=== PATIENT | female | born 1945 | race Caucasian/White ===

== ENCOUNTER 2020-08-22 11:57 | Observation (INO) ==
[2020-08-22] MEDS ORDERED: BACITRACIN INJ 50,000 UNIT VIAL ONE (12:13)
[2020-08-22] MEDS ORDERED: LIDOCAINE HCL 1% 20 ML VIAL ONE (12:13)
[2020-08-22] MEDS ORDERED: BUPIVACAINE 0.25% 30 ML VIAL ONE (12:13)
[2020-08-22] MEDS ORDERED: CLINDAMYCIN PHOS 300 MG/2 ML VIAL ONE (12:21)
[2020-08-22] MEDS ORDERED: MIDAZOLAM HCL 5 MG/ML 1 ML VIAL ONE ×2 (12:26→13:51)
[2020-08-22] MEDS ORDERED: fentaNYL citrate 100 MCG/2 ML VIAL ONE ×2 (12:26→13:51)
--- NOTE | 2020-08-22 13:02 | History & Physical Bridge Note ---
Date of Service August 22, 2020 History & Physical Bridge Note I have examined the patient, reviewed the History & Physical and in the interval since the performance of the History & Physical I have noted the following changes of clinical significance: no changes noted
--- NOTE | 2020-08-22 13:02 | Pre Anesthesia Assessment ---
Date of Service August 22, 2020 Pre Sedation Assessment Vital Signs Temp Pulse Resp BP Pulse Ox 08/22/20 12:05 37 C 73 18 178/98 H 95 Cardiovascular + regular rhythm Respiratory normal respiratory effort, lungs clear to auscultation Pre-Sedation Airway Assessment Smoking Status: Never smoker Hx Sleep Apnea: No Short, Thick Neck: No Thyromental Distance: > or= 3.5 Finger Breadths Oral Cavity: + Dentures Mallampati Class: II ASA: ASA3 NPO Status Date of Last Intake of Fluids: 08/22/20 Time of Last Intake of Fluids: 06:00 Date of Last Intake of Solid Food: 08/22/20 Time of Last Intake of Solid Foods: 06:00 Procedure Planning Contraindications for Sedation: none Current Medications Reviewed: Yes Notes The planned sedation has been discussed with the patient. Informed Consent was obtained. I have identified the patient, determined the appropriateness of sedation and have assessed the patient immediately prior to the procedure. All medicine(s) and interventions are by my order.
--- NOTE | 2020-08-22 14:46 | Post Anesthesia Assessment ---
Date of Service August 22, 2020 Post Sedation Assessment Vital Signs Temp Pulse Resp BP Pulse Ox 08/22/20 12:05 37 C 73 18 178/98 H 95 Recovery Score Activity: Moves 4 extremities Respiration: Deep Breath/Cough Circulation: +/-20% PreAnes Value Consciousness: Fully Awake Oxygen Saturation: > 92% On Room Air Discharge Sedation Level of Care: Fast Track Phase II Post Sedation Plan On clinical assessment, the patient appears to have tolerated the sedation without complications. Patient is recovering as anticipated. Patient will continue to be monitored by nursing and may be discharged when sedation discharge criteria are met per below protocol. Upon Completions of procedure up to 15 minutes continue every 5 minute vital signs and the P.A.R. score; then discharge to a Phase I or Fast Track to Phase II per the following guidelines: * Discharge Patient to appropriate Phase II area if PAR is 8 or greater or return to pre- procedure baseline. The post - procedure orders will be as directed. * If PAR score is less than 8 or not return to pre-procedure baseline then patient will follow Phase I monitoring till PAR is reached for Phase II. The Phase I may be done in procedure room or may call to secure a Phase I area. * If naloxone or flumazenil are used for reversal, hold in Phase I for continued monitoring from when last reversal dose was given for a minimum of 60 minutes or longer pending the nurse and/or physician discretion of patient condition before discharge to Phase II. Please call the Sedation Physician to re-evaluate and complete post-note for discharge to Phase II area. Do NOT discharge from procedure sedation or Phase 1 until post- sedation evaluation note is complete by procedure /sedation MD Sedation Discharge Instructions to be given to the patient at discharge to home.
[2020-08-22] MEDS ORDERED: ACETAMINOPHEN 325 MG TAB PO PRN (14:47)
[2020-08-22] MEDS ORDERED: oxyCODONE/ACETAMINOPHEN 5mg/325mg TAB PO PRN (14:47)
--- NOTE | 2020-08-22 14:47 | Operative Report ---
Post Operative Report Pre & Post Diagnosis NICM and SB Operation Date: 08/22/20 13:00 <No data on this case meets the specified criteria> I identified the patient and participated in the time-out.: Yes Procedure Operation Date: 08/22/20 13:00 Actual Procedures p ICD Insertion Single or Dual - Ailyn Weiss DO Surgeon Ailyn Weiss, DO Sales Designer none Estimated Blood Loss 25 Findings Consistent with Post-Op Diagnosis Specimens none Description of Procedure see official report I attest to the content of the Intraoperative Record and any orders documented therein. Any exceptions are noted below.
--- NOTE | 2020-08-22 14:55 | Discharge Summary ---
Date of Service August 23, 2020 Admission HPI Per Admitting Provider Pt admitted for ICD due to NICM Admission Exam Per Admitting Provider aaox3, NAD NC/AT, EOMI Supple No JVD Nrl S1/S2, No murmur CTA b/l no w/r/r soft nt/nd no LE edema b/l skin intact no focal deficits Principal Diagnosis NICM s/p ICD Discharge Exam aaox3, NAD NC/AT, EOMI Supple No JVD Nrl S1/S2, No murmur CTA b/l no w/r/r soft nt/nd no LE edema b/l skin intact no focal deficits left pectoral incision intact, no hematoma mild ecchymosis Discharge Data Allergies Allergy/AdvReac Type Severity Reaction Status Date / Time Penicillins Allergy Mild pain Verified 08/22/20 12:27 Procedures Performed Operation Date: 08/22/20 13:00 Actual Procedures p ICD Insertion Single or Dual - Ailyn Weiss, Ordered Studies CXR: No PTX ECG: SR ICD Interrogation: normal function 08/22/20 07:14 CL Cath Imgs for PACS use only Stat Hospital Course (1) NICM (nonischemic cardiomyopathy): Pt admitted for elective ICD due to NICM. Pt underwent procedure without any complications and monitored overnight and discharged home. (2) Sinus bradycardia: Total Time Total Time Spent Total Time Spent (In Minutes): 40 Total Time Includes: Examination of the Patient, Discharge Planning, Medication Reconciliation and Other Discharge Plan Discharge Items Patient Disposition: Home - Self-Care Reason For Visit: NICM Discharge Diagnosis: NICM s/p ICD Condition on Discharge: Good Activity: As commented below Activity Comment: do not raise the left elbow over the left shoulder for 1 month wear sling for at least 3 days Lifting: No more than 10 pounds Lifting Comment: do not lift more than 10 pounds with the left arm for 2 weeks Bathing: Keep incision dry Bathing Comment: keep dresssing on and dry until wound check next week Sexual Activity: After two weeks Non-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: 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 Call non-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 if: you have any medication questions, your wound has increased redness and your wound has increased drainage Follow-up/Referrals: Albert Ng PA-C [Primary Care Provider] - Diet: Heart Healthy Add Attending Provider Instructions: Device and wound check next week at [facility] Try to wear a sports bra or surgical bra for the next few weeks to assist with wound healing Pending Studies at Discharge: No Stand-Alone Forms: My [facility] Medications and DC Order Prescriptions: Continued atorvastatin 20 mg Tablet 20 mg PO HS RF: 0 cyanocobalamin (vitamin B-12) [Vitamin B-12] 1,000 mcg Tablet 1,000 mcg PO QAM RF: 0 aspirin 81 mg Tablet,Delayed Release (Dr/Ec) 81 mg PO QAM RF: 0 spironolactone 25 mg Tablet 12.5 mg PO 3XWK RF: 0 ferrous sulfate 325 mg (65 mg iron) Tablet 325 mg PO HS RF: 0 calcium polycarbophil [Fiber (calcium polycarbophil)] 625 mg Tablet 1,250 mg PO QDD RF: 0 furosemide 20 mg Tablet 20 mg PO QAM RF: 0 metoprolol succinate 25 mg Tablet Extended Release 24 Hr 25 mg PO HS RF: 0 lisinopril 40 mg Tablet 40 mg PO HS RF: 0 multivitamin Capsule 1 cap PO QAM RF: 0 cholecalciferol (vitamin D3) [Vitamin D3] 25 mcg (1,000 unit) Capsule 75 mcg PO QAM RF: 0 fiber Powder 3.4 g PO QAM RF: 0 omeprazole 20 mg Tablet,Delayed Release (Dr/Ec) 20 mg PO QAM RF: 0 levothyroxine 50 mcg Capsule 50 mcg PO QAM RF: 0 nonre-[id number]-0-tao-imn-omisiv [krill oil] 044-71-52-50 mg Capsule 1 cap PO HS RF: 0 Prolia 60 mg/mL Syringe 60 mg SUBCUT DIRECTED RF: 0 amlodipine 2.5 mg tablet 2.5 mg PO DAILY Qty: 30 RF: 6 Discharge Orders: Discharge Order (Routine); Ordered 08/23/20 Ordered By: Christopher Walton Admission Data Admit Date/Time: 08/22/20 15:02 Attending Provider: Ailyn Weiss Admit Provider: Ailyn Weiss Primary Care Provider: Albert Ng Other Interventions: Discharge Summary Assessment (RN) Last Done: 08/23/20 10:25
[2020-08-22] MEDS ORDERED: CALCIUM POLYCARBOPHIL 625MG TAB PO SCH (18:00)
[2020-08-22] MEDS ORDERED: SPIRONOLACTONE 12.5 MG TAB PO SCH (18:00)
[2020-08-22] MEDS ORDERED: ondansetron HCL 6 MG in DEXTROSE 5% 50 ML IV PRN ×3 (18:38→18:46)
[2020-08-22] MEDS ORDERED: Nursing to Pharmacy Communication SCH (18:45)
[2020-08-22] MEDS ORDERED: OMEGA-3 (PURIFIED FISH OIL) 1 GM CAP PO SCH (21:00)
[2020-08-22] MEDS ORDERED: METOPROLOL SUCC 25MG EXT REL TAB PO SCH (21:00)
[2020-08-22] MEDS ORDERED: FERROUS SULFATE 325 MG TAB PO SCH (21:00)
[2020-08-22] MEDS ORDERED: ATORVASTATIN 20 MG TAB PO SCH (21:00)
[2020-08-22] MEDS ORDERED: lisinopril 40 MG TAB PO SCH (21:00)
[2020-08-22 23:10] VITALS: TEMP 98.1
[2020-08-23] MEDS ORDERED: LEVOTHYROXINE SODIUM 50 MCG TABLET PO SCH (06:30)
[2020-08-23 07:10] VITALS: BP 153/76; O2SAT 95
--- NOTE | 2020-08-23 08:53 | XRay Report ---
XR chest 2V PA/lateral CLINICAL HISTORY: post iCD COMPARISON STUDY: Chest radiograph October 01, 2016. FINDINGS: There is no pneumothorax following placement of a dual-lead left subclavian pacer/AICD. Hannah d tips project over the right atrial appendage and right ventricle. There is moderate cardiomegaly. T here is no evidence for pulmonary edema. A trace left pleural effusion is noted. Large hiatal hernia is noted. Cholecystectomy clips are present. IMPRESSION: 1. No pneumothorax following placement of a dual lead left subclavian pacer/AICD. 2. Trace left pleural effusion. 3. Large hiatal hernia. 4. Cardiomegaly. No evidence for pulmonary edema. ACT 112: Negative or not required by law. Electronically signed by: Victorino De Jesus M.D. 08/23/2020 8:52 AM
[2020-08-23] MEDS ORDERED: CYANOCOBALAMIN 500 MCG TABLET (VITAMIN B-12) PO SCH (09:00)
[2020-08-23] MEDS ORDERED: PANTOprazole 40 MG TAB PO SCH (09:00)
[2020-08-23] MEDS ORDERED: ASPIRIN 81 MG ECTAB PO SCH (09:00)
[2020-08-23] MEDS ORDERED: CHOLECALCIFEROL 1,000 UNITS 25 MCG TAB PO SCH (09:00)
[2020-08-23] MEDS ORDERED: PSYLLIUM 58.6% POWDER PACKET PO SCH (09:00)
[2020-08-23] MEDS ORDERED: CEROVITE ADV FORMULA TAB PO SCH (09:00)
[2020-08-23] MEDS ORDERED: FUROSEMIDE 20 MG TAB PO SCH (09:00)
--- NOTE | 2020-08-23 10:08 | Cardiology Progress Note ---
Date of Service August 23, 2020 Assessment & Plan (1) NICM (nonischemic cardiomyopathy): Pt admitted for elective ICD due to NICM. Pt underwent procedure without any complications and monitored overnight and discharged home. (2) Sinus bradycardia: Admission and Anticipated Discharge Date Admission Date: August 22, 2020 Subjective Patient seen and examined, chart, medications, telemetry reviewed. No acute cardiac complaints. Pacer defibrillator site healing well without hematoma. Device functioning normal Physical Exam Constitutional: WD/WN, vitals as above Eyes: PERRL, conjunctivae normal, anicteric sclerae ENMT: external ear and nose normal, oropharynx normal Neck: trachea midline, no thyromegaly Respiratory: normal respiratory effort, lungs clear to auscultation Cardiovascular: Rate/Rhythm: regular rate and regular rhythm Heart Sounds: normal S1 and normal S2; no gallop and no murmur Palpation: normal PMI Vessels: normal carotid upstroke and radial pulses present; no JVD and no carotid bruit Extremities: no edema Chest (Breasts): Chest: + pacemaker (No hematoma or or erythema) Gastrointestinal (Abdomen): normal bowel sounds, soft, nontender, no hepatosplenomegaly Musculoskeletal: no cyanosis or clubbing, extremities motor strength 5/5 Skin: no rashes, warm and dry Neurologic: PERRL, EOMI, accommodation nl, no face palsy, no dysarthria Psychiatric: A+Ox3, euthymic affect Results & Data ([facility]) Vital Signs (Past 12 Hours) Vital Signs Temp Pulse Pulse Resp BP Pulse Ox 08/23/20 07:09 36.7 C 66 18 153/76 H 95 08/23/20 03:35 36.7 C 80 18 130/76 91 08/23/20 02:42 68 08/22/20 23:09 36.7 C 70 18 135/80 91 Diagnostic Findings Chest x-ray 08/23/2020: IMPRESSION: 1. No pneumothorax following placement of a dual lead left subclavian pacer/AICD. 2. Trace left pleural effusion. 3. Large hiatal hernia. 4. Cardiomegaly. No evidence for pulmonary edema.
[2020-08-23 10:27] VITALS: PULSE 60
--- NOTE | 2020-08-29 15:35 | Operative Report (OR) ---
DATE OF OPERATION: 08/22/2020 PREOPERATIVE DIAGNOSES: Nonischemic cardiomyopathy and sinus bradycardia. POSTOPERATIVE DIAGNOSES: Same. PROCEDURE: Dual chamber rate responsive implantable cardiac defibrillator under fluoroscopic guidance along with peripheral venogram. SURGEON: Ailyn Weiss DO. ASSISTANTS: None. ANESTHESIA: Monitored conscious sedation administered under my supervision by Evelyn Sanchez. Start time 1315, end time 1541. Total of 7 mg of Versed, 175 mcg of fentanyl. INTRAVENOUS FLUIDS: 250 mL ANTIBIOTICS: 600 mg of clindamycin. CONTRAST: 40 mL ADDITIONAL MEDICATIONS 300 mcg of nitroglycerin IV COMPLICATIONS: None. CONDITION: Stable. URINE OUTPUT: Not applicable. SPECIMENS: None. FINDINGS: See below. DRAINS: None. BLOOD LOSS: 20 mL INDICATIONS: This is a 74-year-old female with past medical history for nonischemic cardiomyopathy, ejection fraction 30% in December of 2019. It remained low on repeat echo in 04/2020, coronary artery disease, nonobstructive disease by catheterization in May of 2020, hypertension, chronic heart failure with reduced ejection fraction, [place] Heart Association class 3, hyperlipidemia, hypothyroidism, osteoporosis, hiatal hernia, where she is needing surgery soon. Due to her nonischemic cardiomyopathy and sinus bradycardia, she was recommended dual chamber ICD. CONSENT: Consent was obtained prior to the patient going into electrophysiology lab. The patient was informed of the risks, benefits and alternative procedure. Risks include but not limited to sudden cardiac , cardiac arrhythmias, cerebrovascular accident, myocardial infarction, injury to the blood vessels, chamber of the heart, lung, bleeding, and infection. The patient understood these risks and agreed with procedure as planned. Informed consent was obtained. DESCRIPTION OF THE PROCEDURE: The patient was brought into the electrophysiology lab in fasting state. She was connected to continuous cardiac monitoring. A timeout was performed to ensure patient identity and procedure correctly. The patient was prepped and draped over the left inferior space in normal surgical standard fashion. Monitored conscious sedation was given throughout the procedure for patient's comfort level. [place] precautions were maintained throughout the procedure. 10 mL of 1% lidocaine, bupivacaine mixture were given in the left deltopectoral groove. Incision was made in left deltopectoral groove. Blunt dissection performed down to identify cephalic vein; however, none could be identified, so peripheral venogram was performed to identify the axillary vein. However, I was having difficulty getting axillary access, so then I did another venogram and then discovered that the vein had spasmed, so we gave nitroglycerin. I actually had to give IV nitroglycerin twice. Then I was able to get access, it was probably more subclavian at this point. It was pretty proximal to the spasm. A guidewire was inserted without any resistance. An 8-Haitian sheath was inserted over the guidewire without any resistance. Dilator was removed and a second guidewire was inserted through the sheath to allow for retained venous access. Sheath was removed and a 9.5-H[place]ian SafeSheath was advanced over one of the guidewires without any resistance. Guidewire and dilator removed. Right ventricular defibrillator lead was then advanced into right ventricle positioned in intraventricular apex under fluoroscopic guidance. There was adequate pacing and sensing thresholds and no diaphragmatic stimulation in high output pacing. The 9.5-[place]aitian sheath was peeled away and lead was fixated to pectoralis muscle using 0 silk suture. An 8 [place] SafeSheath was then advanced over the retained guidewire without any resistance. Guidewire and dilator removed. The right atrial lead was then advanced into right atrium and positioned interatrial appendage under fluoroscopic guidance. There was adequate pacing and sensing thresholds and no diaphragmatic stimulation with high output pacing. The 8-Haitian sheath was peeled away and lead was fixated to pectoralis muscle using 0 silk suture. A defibrillator pocket was then created using blunt dissection over the pectoralis muscle within the pectoralis fascia. The pocket was flushed with copious amounts of bacitracin saline wash and inspected for hemostasis. The defibrillator was then attached to leads making sure the pins were in appropriate position, passed set screw and set screws were all tightened. Defibrillator was then placed in antibiotic pouch followed then by being placed in the pocket, making sure the leads were lying flat beneath the device. The incision was then closed in 3-layer fashion with 2-0 Vicryl interrupted suture, followed 3-0 Vicryl interrupted suture, followed by 4-0 Monocryl running stitch and Dermabond was applied followed by a Telfa and micropore dressing. EQUIPMENT: 1. Pulse generator is a [employer] Data[employer] MRI XTDR SureScan [id number], serial number [id number]. 2. The Tyrx pouch reference [id number], lot number [id number], expiration 04/26/2021. 3. Right atrial lead Medtronic 5076-52 cm, serial #[id number]. 4. Right ventricular lead, Medtronic 6935M-62 cm, serial [id number]. INTRAOPERATIVE TESTIN. Right atrial lead: P-wave 3 millivolts, impedance 1033 ohms, threshold 0.9 volts at 0.4 milliseconds. 2. Right ventricular lead R-wave 14.4 millivolts, impedance 617 ohms, threshold 0.4 volts at 0.4 milliseconds. FINAL MEASUREMENTS THROUGH THE DEVICE: 1. Right atrial lead: P waves 2.4 millivolts, impedance 836 ohms, threshold 0.75 volts at 0.4 milliseconds. 2. Right ventricular lead: R waves 18.4 millivolts, impedance 532 ohms, threshold 0.5 volts at 0.4 milliseconds. 3. RV coil 69 ohms. FINAL PARAMETERS: MVP-R 60/130, right atrial and right ventricular amplitude 3.5 volts, pulse width 0.4 milliseconds, sensitivity 0.3 millivolts. VT monitor zone at 140 beats per minute for 32 detection intervals, VT zone at 167 beats per minute for 16 detection intervals, VF zone at 200 beats per minute for 30/40 detection intervals. IMPRESSION: Successful implantation of a dual chamber rate responsive implantable cardiac defibrillator secondary to nonischemic cardiomyopathy and sinus bradycardia. PLAN: Monitor patient overnight, 12-lead ECG, chest x-ray. She cannot lift the left elbow or left shoulder for 1 month. She cannot lift more than 10 pounds with the left arm for 2 weeks. She is to keep the dressing on and dry until her wound check next week. I attest to the content of the Intraoperative Record and any orders documented therein. Any exception s are noted below.
== END 2020-08-23 12:09 | disposition home or self-care (01) ==
LOC: EP 11:57 → 2S 11:57
PROC: EPB.ICD (2020-08-22 13:00)
DX: I50.22 Chronic systolic (congestive) heart failure; I25.10 Atherosclerotic heart disease of native coronary artery without angina pectoris; Z79.890 Hormone replacement therapy; E03.9 Hypothyroidism, unspecified; Z82.49 Family history of ischemic heart disease and other diseases of the circulatory system; Z79.899 Other long term (current) drug therapy; I42.8 Other cardiomyopathies; I11.0 Hypertensive heart disease with heart failure; E78.5 Hyperlipidemia, unspecified; R00.1 Bradycardia, unspecified

== ENCOUNTER 2023-06-14 11:15 | Inpatient (IN) ==
[2023-06-14 12:18] LABS: Basophils # (auto) 0.02 K/uL (0-0.2); Basophils % (auto) 0.2 %; Hematocrit (blood only) 48.9 % (37.0-47.0); Hemoglobin 17.1 g/dl (12.0-16.0); Immature Granulocytes # (auto) 0.03 K/uL (0.01-0.20); Immature Granulocytes % (auto) 0.3 %; Lymphocytes # (auto) 0.75 K/uL (1.2-3.4); Lymphocytes % (auto) 7.1 %; Mean Corpuscular Hemoglobin 32.3 pg (25.0-34.0); Mean Corpuscular Volume 92.4 fL (80.0-100.0); Mean Platelet Volume 10.2 fL (9.4-12.4); Monocytes # (auto) 1.17 K/uL (0.11-0.59); Monocytes % (auto) 11.1 %; Neutrophils # (auto) 8.61 K/uL (1.40-6.50); Neutrophils % (auto) 81.3 %; Platelet Count 246 K/uL (130-400); RDW Coefficient of Variation 12.2 % (11.5-14.5); RDW Standard Deviation 41.9 fL (36.4-46.3); Red Blood Count 5.29 M/uL (4.20-5.40); White Blood Count 10.58 K/ul (4.8-10.8)
[2023-06-14 12:38] LABS: Albumin Globulin Ratio 1.5 (0.9-2); Albumin Level 4.6 gm/dl (3.4-5.0); BUN Creatinine Ratio 36.2 (10-20); Bilirubin,Total 1.2 mg/dl (0.2-1.0); Calcium 11.5 mg/dl (8.6-10.3); Creatinine Clr Calc Pharmacy 29.3 ml/min; Est GFR (African American) 37.9 ml/min; Est GFR (Non-African American) 32.7 ml/min; Potassium 4.2 mmol/L (3.5-5.1); Total Protein 7.6 gm/dl (6.0-8.3)
--- NOTE | 2023-06-14 14:21 | Emergency Department Note ---
Impression & Plan SBO (small bowel obstruction), Abdominal pain, Hypercalcemia, Acute dehydration, Nausea & vomiting ED Provider Note NAME: CHANDAN HERRMANN AGE: 77 SEX: F : 1945 ARRIVES VIA: Walk-In INFORMANT: Patient, ED PROVIDER(S): Patricio Mcfadden MD CHIEF COMPLAINT: Abdominal pain, outpatient abnormal CT Patient presents due to concern for abdominal pain in setting of outpatient CT which showed small bowel obstruction. IV was established and blood work was obtained. The patient was ordered IV fluids as well as IV Zofran. The patient has had 2 bowel movement since she arrived. The patient has a normal white count mild elevation hemoglobin which may be consistent with the patient's inability to tolerate by mouth. Platelet count is unremarkable. Creatinine 1.5 with associated hyponatremia 131. Patient does have hypercalcemia which again may be secondary to volume depletion and hemoconcentration. I did speak on-call general surgery Katherin Espitia PA-C the patient will be admitted to the medical service for further evaluation and treatment. Patient feeling member comfortable with plan of care. Patient was admitted by Dr. Dawson. General surgery did not recommend NG tube at this time. The patient has had no vomiting while here in the department Prior /Outside records reviewed: I did review the patient's outpatient CT report which showed the patient does have a moderate to high-grade small bowel obstruction. The patient does have a known hiatal hernia. Differential diagnosis: Pancreatitis, bowel obstruction, gastroenteritis, biliary colic, renal colic, pneumoperitoneum, diverticulitis among others were considered. Diagnostics, as interpreted by me: ECG: Normal sinus rhythm, rate 95, normal intervals, left axis deviation, T wave versions in the high lateral leads. No obvious ST elevations Cardiac monitoring: An order was placed for continuous cardiac monitoring. The monitor shows a rate of 88 with sinus rhythm. Patient was placed on pulse oximetry Medical decision rules: None Imaging studies: See below I informally reviewed the patient's KUB which does show likely bowel obs truction. HPI: Patient presents due to concern for inability to have a bowel movement as well as an abnormal outpatient CT scan. Patient states that she has not had a bowel movement since Tuesday. The patient has had associated nausea and vomiting. No vomiting today. The patient reports that she has been able have a bowel movement since she presented here in the department. Patient denies any falls or trauma. No blood in the urine or stool and the patient denies any blood in the vomit. Patient denies any prior history of bowel obstruction but the patient does have a prior history of abdominal surgeries. PAST MEDICAL HISTORY: See Below PAST SURGICAL HISTORY: See Below SOCIAL HISTORY: See Below HOME MEDICATIONS: See Below ALLERGIES: See Below VITALS: See Below PHYSICAL EXAMINATION: GENERAL: NAD, non-toxic. Wearing glasses EYE EXAM: Normal conjunctiva. PERRL, no anisocoria and EOM's grossly intact w/o pain. OROPHARYNX: Moist mucus membranes, grossly normal dentition. NECK: Supple, no nuchal rigidity, no adenopathy, non-tender. No signs of meningismus. FROM of the neck with good chin to chest and neck extension. No stridor. LUNGS: Clear to auscultation. Normal chest wall mechanics. HEART: NSR, no MRG. ABDOMEN: Abdomen soft, upper abdominal discomfort without lower abdominal pain, not peritonitic, no masses, no rebound or guarding. BACK: No CVA TTP. SKIN: No rashes and no bruising. UPPER EXTREMITIES: Upper extremities are grossly normal. LOWER EXTREMITIES: Grossly normal, no edema. NEURO EXAM: A&O x3, cranial nerves II-XII grossly intact, normal speech, moves all 4 extremities. Past Med/Surg History Medical History Anemia takes iron Arthritis CAD (coronary artery disease) Diverticulosis GERD (gastroesophageal reflux disease) Hiatal hernia History of left inguinal hernia Hyperlipidemia Hypertension Hypothyroidism Incarcerated inguinal hernia, unilateral Mood disorder NICM (nonischemic cardiomyopathy) Presence of combination internal cardiac defibrillator (ICD) and pacemaker Sinus bradycardia Small bowel obstruction due to adhesions Surgical History H/O: hysterectomy History of carpal tunnel release right and left History of cholecystectomy History of foot surgery right and left joint replacement History of left knee replacement Hx of cholecystectomy Family History Other Diabetes Heart disease Social History Smoking Status: Never smoker Second Hand Exposure: No; Do You Dip or Chew Tobacco: No; Hx Alcohol Use: Yes Alcohol type: wine Hx Substance Use: No Preferred Language: Citizen Of [place] Communication Ability: Effective 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: No Beliefs That Will Affect Care: None Current Living Situation: Spouse 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 Other Information That Helps Us Care for You: No Feels Safe at Home: Yes Safety Concerns: Feels Safe At This Time Assistive Devices: Denture - Upper, Denture - Lower and Glasses Allergies Allergies Allergy/AdvReac Type Severity Reaction Status Date / Time Penicillins Allergy Mild pain Verified 08/22/20 12:27 Home Meds Home Medications Medication Instructions Recorded Confirmed aspirin 81 mg tablet,delayed 81 mg PO QAM 05/19/20 06/14/23 release calcium polycarbophil 625 mg 1,250 mg PO QDD 05/19/20 06/14/23 tablet (Fiber (calcium polycarbophil)) cholecalciferol (vitamin D3) 25 75 mcg PO QAM 05/19/20 06/14/23 mcg (1,000 unit) capsule (Vitamin D3) cyanocobalamin (vitamin B-12) 1,000 mcg PO QAM 05/19/20 06/14/23 1,000 mcg tablet (Vitamin B-12) krill 1 cap PO HS 05/19/20 06/14/23 [id number] 300 mg-90 mg-24 mg-50 mg capsule (krill oil) levothyroxine 50 mcg capsule 50 mcg PO QAM 05/19/20 06/14/23 lisinopril 40 mg tablet 40 mg PO 05/19/20 06/14/23 metoprolol succinate 25 mg 25 mg PO BID 05/19/20 06/14/23 tablet,extended release 24 hr multivitamin 1 cap PO QAM 05/19/20 06/14/23 omeprazole 20 mg tablet,delayed 20 mg PO QAM 05/19/20 06/14/23 release spironolactone 25 mg tablet 12.5 mg PO MOWEFR@0900 05/19/20 06/14/23 denosumab 60 mg/mL subcutaneous 60 mg subcut DIRECTED 06/18/20 06/14/23 syringe (Prolia) citalopram 10 mg tablet 10 mg PO QAM 06/14/23 06/14/23 ferrous fumarate-vitamin C 200 mg 1 tab PO HS 06/14/23 06/14/23 (66 mg iron)-125 mg tablet rosuvastatin 10 mg tablet 10 mg PO QAM 06/14/23 06/14/23 solifenacin 10 mg tablet 10 mg PO DAILY 06/14/23 06/14/23 Previous Rx's Medication Instructions Recorded amlodipine 2.5 mg tablet 2.5 mg PO DAILY #30 tabs 06/18/20 Results & Data (ED) Vital Signs Vital Signs - 24 hr 06/14/23 11:38 06/14/23 14:56 06/14/23 15:11 Temperature 36.8 C Temperature Source Temporal Artery Scan Pulse Rate 98 H 69 Pulse Rate [Apical] 66 Pulse Rhythm [Apical] Regular Pulse Strength [Apical] Normal Respiratory Rate 16 20 Respiratory Effort / Characteristics Non-Labored Non-Labored Spontaneous Respiratory Depth Normal Normal Blood Pressure 97/65 L Blood Pressure [Left Arm] 122/69 Blood Pressure Mean 75 Blood Pressure Mean [Left Arm] 86 Blood Pressure Position [Left Arm] Sitting Pulse Oximetry 93 86 L Oxygen Delivery Method Room Air Room Air Oxygen Flow Rate 1 Sepsis Recent Fever Within 48 Hours No Sepsis New/Unexplained Change in Mental Status No Sepsis Action Taken by Nursing No Action Required Home Medications Current Medication List: was personally reviewed by me Laboratory Data Attestation: I reviewed the patient's lab results. 06/14/23 12:00 06/14/23 12:00 Lab Results 06/14/23 06/14/23 Range/Units 12:00 12:00 WBC 10.58 (4.8-10.8) K/ul RBC 5.29 (4.20-5.40) M/uL Hgb 17.1 H (12.0-16.0) g/dl Hct 48.9 H (37.0-47.0) % MCV 92.4 (80.0-100.0) fL MCH 32.3 (25.0-34.0) pg MCHC 35.0 (32.0-36.0) g/dL RDW Std Deviation 41.9 (36.4-46.3) fL RDW Coeff of Jose Angel 12.2 (11.5-14.5) % Plt Count 246 (130-400) K/uL MPV 10.2 (9.4-12.4) fL Immature Gran % (Auto) 0.3 % Neut % (Auto) 81.3 % Lymph % (Auto) 7.1 % [place] % (Auto) 11.1 % Eos % (Auto) 0.0 % Baso % (Auto) 0.2 % Neut # (Auto) 8.61 H (1.40-6.50) K/uL Lymph # (Auto) 0.75 L (1.2-3.4) K/uL [place] # (Auto) 1.17 H (0.11-0.59) K/uL Eos # (Auto) 0.00 (0-0.50) K/uL Baso # (Auto) 0.02 (0-0.2) K/uL Immature Gran # (Auto) 0.03 (0.01-0.20) K/uL Sodium 131 L (136-145) mmol/L Potassium 4.2 (3.5-5.1) mmol/L Chloride 93 L (98-107) mmol/L Carbon Dioxide 26 (21-32) mmol/L Anion Gap 12 H (3-11) BUN 55 H (6-23) mg/dl Creatinine 1.52 H (0.6-1.2) mg/dl Est Cr Clr Drug Dosing 29.3 ml/min Est GFR ( Amer) 37.9 ml/min Est GFR (Non-Af Amer) 32.7 ml/min BUN/Creatinine Ratio 36.2 H (10-20) Glucose 136 H (70-99(Fasting)) mg/dl Calcium 11.5 H (8.6-10.3) mg/dl Total Bilirubin 1.2 H (0.2-1.0) mg/dl AST 22 (13-39) U/L ALT 43 (7-52) U/L Alkaline Phosphatase 57 (34-104) U/L Total Protein 7.6 (6.0-8.3) gm/dl Albumin 4.6 (3.4-5.0) gm/dl Globulin 3.0 (2.5-4.0) gm/dl Albumin/Globulin Ratio 1.5 (0.9-2) Administered Medications Lactated Ringer's (Lr) 1,000 mls @ 75 mls/hr IV .[id number] DIXIE Stop: 07/15/23 04:59 Last Admin: 06/15/23 05:17 Dose: 75 mls/hr Documented By: JAMIN Ondansetron HCl (Ondansetron Inj 2 Mg/Ml 2 Ml Vial) 4 mg IV Q6H PRN PRN Reason: Nausea Stop: 07/14/23 17:10 Last Admin: 06/14/23 23:47 Dose: 4 mg Documented By: JAMIN Discontinued Medications Sodium Chloride (Nss 1000ml) 1,000 mls @ 999 mls/hr IV .[id number] ONE Stop: 06/14/23 15:25 Last Infusion: 06/14/23 17:12 Dose: 0 mls/hr Documented By: Admin: 06/14/23 14:47 Dose: 999 mls/hr Documented By: TRACIE Sodium Chloride (Nss 1000ml) 1,000 mls @ 80 mls/hr IV .[id number] DIXIE Stop: 06/15/23 05:40 Last Infusion: 06/15/23 05:27 Dose: 0 mls/hr Documented By: Admin: 06/14/23 17:27 Dose: 80 mls/hr Documented By: ELEANOR Promethazine HCl 6.25 mg/ (Sodium Chloride) 50.25 mls @ 201 mls/hr IV NOW STA Stop: 06/15/23 04:43 Last Infusion: 06/15/23 05:26 Dose: 0 mls/hr Documented By: Admin: 06/15/23 04:51 Dose: 201 mls/hr Documented By: JAMIN Ondansetron HCl (Ondansetron Inj 2 Mg/Ml 2 Ml Vial) 4 mg IV NOW STA Stop: 06/14/23 14:26 Last Admin: 06/14/23 14:47 Dose: 4 mg Documented By: TRACIE Discharge Plan Visit Data Chief Complaint: Constipation Stated Complaint: BOWEL BLOCKAGE, REF BY DOC ED Provider: Patricio Mcfadden Discharge Problem: SBO (small bowel obstruction), Abdominal pain, Hypercalcemia, Acute dehydration, Nausea & vomiting Patient Disposition: Admitted As Inpatient Discharge Instructions Interventions: ED Discharge Assessment Last Done: 06/14/23 16:42
[2023-06-14] MEDS ORDERED: SODIUM CHLORIDE 0.9% 1000ML 1,000 ML IV ONE (14:25)
[2023-06-14] MEDS ORDERED: ONDANSETRON INJ 2 MG/ML 2 ML VIAL IV STA (14:25)
--- NOTE | 2023-06-14 15:28 | History & Physical Report ---
Date of Service June 14, 2023 Assessment & Plan (1) SBO (small bowel obstruction): Plan: This is a 77yo F with a PMH of HFrEF, history of non-ischemic cardiomyopathy with ICD, sinus bradycardia, HTN, dyslipidemia, hypothyroidism, [place] and other medical problems listed below who presents with abdominal pain and outpatient CT findings of small bowel obstruction. N/V x 4 days, LLQ abdominal pain Outpatient CT abdomen findings from yesterday with impression of high grade obstruction, diverticulosis without diverticulitis Has had 2 bowel movements earlier today KUB with findings are compatible with small bowel obstruction Evaluated by general surgery in the ED. Per Dr. Null, conservative approach at this time with bowel rest, okay with chips and sips and if vomiting returns, may need NG tube Continue gentle IV fluids (2) Hiatal hernia: Plan: Will need evaluation of large hiatal hernia as an outpatient at tertiary facility, per gen surg (3) Hypertension: Plan: Chronic, stable. Resume home amlodipine, Toprol once SBO resolved Holding spironolactone for now given dehydrated appearance (4) Sinus bradycardia: (5) NICM (nonischemic cardiomyopathy): (6) Presence of combination internal cardiac defibrillator (ICD) and pacemaker: Plan: Follows with [facility]. 2D echo from May 2022 reveals slight improvement in LVEF ~45% compared to 39%. Mild concentric LVH noted Resume meds when able as above (7) CAD (coronary artery disease): Plan: Resume aspirin, atorvastatin when able (8) Hyperlipidemia: Plan: Chronic, stable. Resume when able (9) Mood disorder: Plan: Resume SSRI when able DVT Ppx: SCDS for now Code status: FULL PCP: Maye Dispo: Observation med/surg Patient seen in collaboration with Dr. Dawson. Please see addendum. History of Present Illness Chief Complaint: SBO Primary Care Provider: Jose Villavicencio MD This is a 77yo F with a PMH of HFrEF, history of non-ischemic cardiomyopathy with ICD, sinus bradycardia, restrictive lung disease, HTN, dyslipidemia, hypothyroidism, [place] and other medical problems listed below who presents with abdominal pain. Was seen in outpatient setting yesterday with LLQ abdominal pain, constipation and subjective fevers. Underwent CT of the abdomen, which resulted this morning showing high grade bowel obstruction and patient was directed to [facility] ED for further evaluation. Endorses nausea and vomiting over the last 4 days at home with poor appetite. Was able to tolerate some liquids but very limited food intake. No blood in bowel movements noted. Has history of bowel obstruction in the past 2/2 inguinal hernia that has since been repaired. Patient is feeling better currently, without nausea and vomiting after Zofran. Had 2 bowel movements today. LLQ is cramping and constant with some radiation to RLQ. No F/C, lightheadedness, headache, CP, SOB, dysuria. Allergies Allergy/AdvReac Type Severity Reaction Status Date / Time Penicillins Allergy Mild pain Verified 08/22/20 12:27 Home Medications Medication Instructions Recorded Confirmed Type aspirin 81 mg tablet,delayed 81 mg PO QAM 05/19/20 06/14/23 History release calcium polycarbophil 625 mg 1,250 mg PO QDD 05/19/20 06/14/23 History tablet (Fiber (calcium polycarbophil)) cholecalciferol (vitamin D3) 25 75 mcg PO QAM 05/19/20 06/14/23 History mcg (1,000 unit) capsule (Vitamin D3) cyanocobalamin (vitamin B-12) 1,000 mcg PO QAM 05/19/20 06/14/23 History 1,000 mcg tablet (Vitamin B-12) krill 1 cap PO HS 05/19/20 06/14/23 History kcg-[id number]-[id number] 300 mg-90 mg-24 mg-50 mg capsule (krill oil) levothyroxine 50 mcg capsule 50 mcg PO QAM 05/19/20 06/14/23 History lisinopril 40 mg tablet 40 mg PO HS 05/19/20 06/14/23 History metoprolol succinate 25 mg 25 mg PO BID 05/19/20 06/14/23 History tablet,extended release 24 hr multivitamin 1 cap PO QAM 05/19/20 06/14/23 History omeprazole 20 mg tablet,delayed 20 mg PO QAM 05/19/20 06/14/23 History release spironolactone 25 mg tablet 12.5 mg PO MOWEFR@0900 05/19/20 06/14/23 History amlodipine 2.5 mg tablet 2.5 mg PO DAILY #30 tabs 06/18/20 06/14/23 Rx denosumab 60 mg/mL subcutaneous 60 mg subcut DIRECTED 06/18/20 06/14/23 History syringe (Prolia) citalopram 10 mg tablet 10 mg PO QAM 06/14/23 06/14/23 History ferrous fumarate-vitamin C 200 mg 1 tab PO HS 06/14/23 06/14/23 History (66 mg iron)-125 mg tablet rosuvastatin 10 mg tablet 10 mg PO QAM 06/14/23 06/14/23 History solifenacin 10 mg tablet 10 mg PO DAILY 06/14/23 06/14/23 History Past Med/Surg History Medical History (Updated 06/14/23 @ 16:48 by Jennifer Fernando PA-C) Anemia takes iron Arthritis CAD (coronary artery disease) Diverticulosis GERD (gastroesophageal reflux disease) Hiatal hernia History of left inguinal hernia Hyperlipidemia Hypertension Hypothyroidism Incarcerated inguinal hernia, unilateral Mood disorder NICM (nonischemic cardiomyopathy) Presence of combination internal cardiac defibrillator (ICD) and pacemaker Sinus bradycardia Small bowel obstruction due to adhesions Surgical History H/O: hysterectomy History of carpal tunnel release right and left History of cholecystectomy History of foot surgery right and left joint replacement History of left knee replacement Hx of cholecystectomy Family History Other Diabetes Heart disease Social History Smoking Status: Never smoker Second Hand Exposure: No; Do You Dip or Chew Tobacco: No; Hx Alcohol Use: Yes Alcohol type: wine Hx Substance Use: No Preferred Language: [place]inamese Communication Ability: Effective Director Emergency Department Required: No Beliefs That Will Affect Care: None Current Living Situation: Spouse 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 Physical Exam Physical Exam: General Appearance: WD/WN, vitals as above, NAD, sitting up in bed, pleasant, conversing easily Head: normocephalic, atraumatic Eyes: normal inspection, PERRL, conjunctivae normal, anicteric sclerae ENT: external ear and nose normal, oropharynx normal Neck: normal visual inspection, trachea midline, no thyromegaly Respiratory: normal respiratory effort, lungs clear to auscultation, no wheeze, rales, rhonchi. No accessory muscle use Cardiovascular: regular rate, rhythm, no murmur, normal peripheral pulses, no BLE edema. Vessels: no JVD Chest: normal inspection of chest Abdomen/GI: LLQ TTP with some distention, hypoactive bowel sounds, no hepatosplenomegaly Extremities/Musculoskeletal: no cyanosis or clubbing, extremities motor strength 5/5 Neurologic: PERRL, EOMI, accommodation nl, no face palsy, no dysarthria, CN's II-XI intact bilaterally and moves all extremities Psychiatric: A+Ox3, euthymic affect Skin: no rashes, normal color, warm/dry Results & Data Results & Data Vital Signs (Past 12 Hours) Vital Signs Temp Pulse Pulse Resp BP BP Pulse Ox 06/14/23 15:11 69 06/14/23 14:56 66 20 122/69 86 L 06/14/23 11:38 36.8 C 98 H 16 97/65 L 93 O2 Del Method O2 Flow Rate 06/14/23 15:11 06/14/23 14:56 Room Air 1 06/14/23 11:38 Room Air Laboratory Results Short CBC 06/14/23 Range/Units 12:00 WBC 10.58 (4.8-10.8) K/ul Hgb 17.1 H (12.0-16.0) g/dl Hct 48.9 H (37.0-47.0) % Plt Count 246 (130-400) K/uL BMP 06/14/23 12:00 Sodium 131 L Potassium 4.2 Chloride 93 L Carbon Dioxide 26 BUN 55 H Creatinine 1.52 H Glucose 136 H Calcium 11.5 H Liver Function 06/14/23 Range/Units 12:00 Total Bilirubin 1.2 H (0.2-1.0) mg/dl AST 22 (13-39) U/L ALT 43 (7-52) U/L Alkaline Phosphatase 57 (34-104) U/L Albumin 4.6 (3.4-5.0) gm/dl Diagnostic Findings KUB X-Ray 06/14/23 15:26 XR KUB/Abdomen 1 view CLINICAL HISTORY: eval sbo TECHNIQUE: 1 view of the abdomen was obtained. Comparison: Comparison is made to abdomen radiographs 03/30/[address] abdomen pelvis 06/13/2023 FINDINGS: Cholecystomy clips are seen in the right upper quadrant. Degenerative changes are seen in the visualized skeleton. Gas dilated loops of small bowel are seen. Small stool burden is seen. IMPRESSION: Findings are compatible with small bowel obstruction. ACT 112: Negative or not required by law. Electronically signed by: Poncho Rubin M.D. 06/14/2023 3:55 PM ECG Additional Comments: EKG reviewed: Normal sinus rhythm. Left axis deviation. Left ventricular hypertrophy with repolarization abnormality Supervising Physician Co-Signing Physician Notes Pt seen and examined by myself, Paulette Dawson MD on the day of service. Care was coordinated with Jennifer Fernando PA-C. Please refer to her note for additional information. 77yoF with N/V, abdominal pain and constipation found to have an SBO. Abdomen tender in all quadrants on exam, no guarding. CT abdomen pelvis with SBO and hiatal hernia noted. General Surgery consult- appreciate recs. NPO, Bowel rest, IV fluids. Otherwise as above.
--- NOTE | 2023-06-14 15:38 | Surgery Consultation ---
Date of Consultation June 14, 2023 Assessment & Plan (1) Small bowel obstruction due to adhesions: 77-year-old female with small bowel obstruction, appears to be resolving. No indication for surgery at this time. Recommend bowel rest, may have sips and chips for now. KUB ordered and pending. If continues to improve, potentially advance her diet tomorrow. No surgical indication at this time Admit to medicine, appreciate their care with this patient Bowel rest, may have sips and chips If begins vomiting may need NG tube Will need evaluation of large hiatal hernia as an outpatient at tertiary facility Surgery will follow, call with questions or concerns (2) H/O: hysterectomy: (3) History of cholecystectomy: (4) NICM (nonischemic cardiomyopathy): (5) Hiatal hernia: (6) Hyperlipidemia: (7) Hypertension: (8) Presence of combination internal cardiac defibrillator (ICD) and pacemaker: History of Present Illness Reason for Consultation: Small bowel obstruction History of Present Illness 77-year-old female presented to the emergency department after an outpatient CT scan showed a small bowel obstruction. She started having discomfort and pain on Tuesday. She tried MiraLAX because she thought she was constipated. She has a history of a bowel obstruction in the past that she reports is secondary to a left inguinal hernia that resolved with fixing the hernia. She also has had a total abdominal hysterectomy. She has a cardiac history and currently has a defibrillator/pacer, not on any blood thinners. 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 She had the outpatient CT scan performed yesterday and it was read last night. Since arriving in the ER she has had 2 bowel movements and is feeling better. She has not had any vomiting Allergies Allergy/AdvReac Type Severity Reaction Status Date / Time Penicillins Allergy Mild pain Verified 08/22/20 12:27 Home Medications Medication Instructions Recorded Confirmed Type aspirin 81 mg tablet,delayed 81 mg PO QAM 05/19/20 08/22/20 History release calcium polycarbophil 625 mg 1,250 mg PO QDD 05/19/20 08/22/20 History tablet (Fiber (calcium polycarbophil)) cholecalciferol (vitamin D3) 25 75 mcg PO QAM 05/19/20 08/22/20 History mcg (1,000 unit) capsule (Vitamin D3) cyanocobalamin (vitamin B-12) 1,000 mcg PO QAM 05/19/20 08/22/20 History 1,000 mcg tablet (Vitamin B-12) ferrous sulfate 325 mg (65 mg 325 mg PO HS 05/19/20 08/22/20 History iron) tablet krill 1 cap PO HS 05/19/20 08/22/20 History yox-ek-0-rjy-brz-avvxdjjguymis 300 mg-90 mg-24 mg-50 mg capsule (krill oil) levothyroxine 50 mcg capsule 50 mcg PO QAM 05/19/20 06/14/23 History lisinopril 40 mg tablet 40 mg PO HS 05/19/20 06/14/23 History metoprolol succinate 25 mg 25 mg PO BID 05/19/20 06/14/23 History tablet,extended release 24 hr multivitamin 1 cap PO QAM 05/19/20 08/22/20 History omeprazole 20 mg tablet,delayed 20 mg PO QAM 05/19/20 06/14/23 History release psyllium seed (with dextrose) oral 3.4 g PO QAM 05/19/20 08/22/20 History powder (fiber) spironolactone 25 mg tablet 12.5 mg PO 3XWK 05/19/20 06/14/23 History amlodipine 2.5 mg tablet 2.5 mg PO DAILY #30 tabs 06/18/20 06/14/23 Rx denosumab 60 mg/mL subcutaneous 60 mg subcut DIRECTED 06/18/20 08/22/20 History syringe (Prolia) citalopram 10 mg tablet 10 mg PO QAM 06/14/23 06/14/23 History rosuvastatin 10 mg tablet 10 mg PO QAM 06/14/23 06/14/23 History solifenacin 10 mg tablet 10 mg PO DAILY 06/14/23 06/14/23 History Patient History Medical History (Updated 06/14/23 @ 15:36 by Gurpreet Null DO, FACS) Anemia takes iron Arthritis Diverticulosis GERD (gastroesophageal reflux disease) Hiatal hernia History of left inguinal hernia Hyperlipidemia Hypertension Hypothyroidism NICM (nonischemic cardiomyopathy) Presence of combination internal cardiac defibrillator (ICD) and pacemaker Sinus bradycardia Small bowel obstruction due to adhesions Surgical History H/O: hysterectomy History of carpal tunnel release right and left History of cholecystectomy History of foot surgery right and left joint replacement History of left knee replacement Hx of cholecystectomy Social History Smoking Status: Never smoker Second Hand Exposure: No; Do You Dip or Chew Tobacco: No; Hx Alcohol Use: Yes Alcohol type: wine Hx Substance Use: No Preferred Language: Guatemalan Communication Ability: Effective Hydrometeorologist Required: No Beliefs That Will Affect Care: None Current Living Situation: Spouse 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 Safe at Home: Yes Assistive Devices: None Review of Systems Review of Systems: All systems reviewed & are unremarkable except as noted in HPI & below Physical Exam Constitutional: WD/WN, vitals as above Respiratory: normal respiratory effort, lungs clear to auscultation Cardiovascular: RRR, no murmur, no edema Gastrointestinal (Abdomen): Inspection/Auscultation: + abdomen distended (Moderate) and + abdominal surgical scar Percussion/Palpation: abdomen soft; abdomen nontender, no guarding, abdomen not rigid and no hepatosplenomegaly Results & Data Vital Signs (Past 12 Hours) Vital Signs Temp Pulse Pulse Resp BP BP Pulse Ox 06/14/23 15:11 69 06/14/23 14:56 66 20 122/69 86 L 06/14/23 11:38 36.8 C 98 H 16 97/65 L 93 O2 Del Method O2 Flow Rate 06/14/23 15:11 06/14/23 14:56 Room Air 1 06/14/23 11:38 Room Air Laboratory Results Laboratory Results - last 24 hr 06/14/23 06/14/23 12:00 12:00 WBC 10.58 RBC 5.29 Hgb 17.1 H Hct 48.9 H MCV 92.4 MCH 32.3 MCHC 35.0 RDW Std Deviation 41.9 RDW Coeff of Jose Angel 12.2 Plt Count 246 MPV 10.2 Immature Gran % (Auto) 0.3 Neut % (Auto) 81.3 Lymph % (Auto) 7.1 [place] % (Auto) 11.1 Eos % (Auto) 0.0 Baso % (Auto) 0.2 Neut # (Auto) 8.61 H Lymph # (Auto) 0.75 L [place] # (Auto) 1.17 H Eos # (Auto) 0.00 Baso # (Auto) 0.02 Immature Gran # (Auto) 0.03 Sodium 131 L Potassium 4.2 Chloride 93 L Carbon Dioxide 26 Anion Gap 12 H BUN 55 H Creatinine 1.52 H Est Cr Clr Drug Dosing 29.3 Est GFR ( Amer) 37.9 Est GFR (Non-Af Amer) 32.7 BUN/Creatinine Ratio 36.2 H Glucose 136 H Calcium 11.5 H Total Bilirubin 1.2 H AST 22 ALT 43 Alkaline Phosphatase 57 Total Protein 7.6 Albumin 4.6 Globulin 3.0 Albumin/Globulin Ratio 1.5 Diagnostic Findings Personally reviewed and interpreted the CT scan from yesterday and agree with the assessment of a small bowel obstruction with transition point in the pelvis Exam(s): CT ABDOMEN + PELVIS With Contrast Oral - High Density Amt: gastrograffin, IV Amt: 89 ml optiray 320 EXAM: CT Abdomen and Pelvis With Intravenous Contrast CLINICAL HISTORY: DIVERTICULOSIS OF LARGE INTESTINE WITH HEMORRHAGE. TECHNIQUE: Axial computed tomography images of the abdomen and pelvis with intravenous contrast. CTDI is 27.59 mGy and DLP is 1237.2 mGy-cm. Automated exposure control was utilized for the study. A dose lowering technique was utilized adhering to the principles of ALARA. CONTRAST: Patient received gastrograffin of Oral - High Density and 89 ml optiray 320 of IV contrast COMPARISON: 06/20/2016 FINDINGS: Lung bases: Unremarkable. No mass. No consolidation. ABDOMEN: Liver: Unremarkable. No mass. Gallbladder and bile ducts: Cholecystectomy. No ductal dilation. Pancreas: Unremarkable. No mass. No ductal dilation. Spleen: Scattered splenic calcifications noted. Adrenals: Unremarkable. No mass. Kidneys and ureters: Unremarkable. No solid mass. No hydronephrosis. Stomach and bowel: There is abnormal fluid and gas dilation of proximal to mid small bowel loops with a sharp transition noted in a mid to distal small bowel loop in the posterior pelvis (series 300; images 79- 82). The distal small bowel is asymmetrically decompressed in the right lower quadrant. No pneumatosis. Extensive diverticulosis throughout the colon. No mucosal thickening or obvious colonic fat stranding to suggest diverticulitis. The stomach is nearly completely herniated into the posterior mediastinum and is at least moderately distended with oral contrast and gas. There is some mass effect upon the heart, which is anteriorly displaced. The stomach is incompletely included and the esophagus is not clearly evident. There is rotation of the stomach along the long axis of the stomach. PELVIS: Appendix: No findings to suggest acute appendicitis. Bladder: Unremarkable. No mass. Reproductive: Unremarkable as visualized. ABDOMEN and PELVIS: Intraperitoneal space: No free intraperitoneal fluid or pneumoperitoneum. Bones/joints: Multilevel degenerative changes throughout the thoracolumbar spine. No acute osseous abnormality. Prior ORIF of the proximal left femur. Soft tissues: The previously noted left inguinal hernia is no longer evident. Vasculature: Unremarkable. No abdominal aortic aneurysm. Lymph nodes: Unremarkable. No enlarged lymph nodes. IMPRESSION: 1. There is abnormal fluid and gas dilation of proximal to mid small bowel loops with a sharp transition noted in a mid to distal small bowel loop in the posterior pelvis (series 300; images 79-82). The distal small bowel is asymmetrically decompressed in the right lower quadrant. Findings are consistent with a mid to distal high-grade small bowel obstruction. No pneumatosis or pneumoperitoneum. 2. Extensive diverticulosis throughout the colon. No mucosal thickening or obvious colonic fat stranding to suggest diverticulitis. 3. The stomach is nearly completely herniated into the posterior mediastinum and is at least moderately distended with oral contrast and gas. There is some mass effect upon the heart, which is anteriorly displaced. The stomach is incompletely included and the esophagus is not clearly evident. There is rotation of the stomach along the long axis of the stomach. This finding has progressed from the previous examination. The clinical significance of these findings are indeterminant. 4. The previously noted left inguinal hernia is no longer evident. PG Care Time/CCT Total # of Minutes Spent Total Time Spent with Patient: Total time spent is greater than 50% in coordination of care (as documented) at patient's floor/unit and/or counseling patient: Coding Level of Care Code 87612 OP VST NEW MOD 45-59 MIN Diagnoses Small bowel obstruction due to adhesions K56.50 H/O: hysterectomy Z90.710 History of cholecystectomy Z90.49 NICM (nonischemic cardiomyopathy) I42.8 Hiatal hernia K44.9 Hyperlipidemia E78.5 Hypertension I10 Presence of combination internal cardiac defibrillator (ICD) and pacemaker Z95.810
--- NOTE | 2023-06-14 15:57 | XRay Report ---
XR KUB/Abdomen 1 view CLINICAL HISTORY: eval sbo TECHNIQUE: 1 view of the abdomen was obtained. Comparison: Comparison is made to abdomen radiographs 03/30/[address] abdomen pelvis 06/13/2023 FINDINGS: Cholecystomy clips are seen in the right upper quadrant. Degenerative changes are seen in the visuali zed skeleton. Gas dilated loops of small bowel are seen. Small stool burden is seen. IMPRESSION: Findings are compatible with small bowel obstruction. ACT 112: Negative or not required by law. Electronically signed by: Poncho Rubin M.D. 06/14/2023 3:55 PM
--- NOTE | 2023-06-14 16:08 | Electrocardiogram Report ---
Test Reason : Blood Pressure : / mmHG Vent. Rate : 095 BPM Atrial Rate : 095 BPM P-R Int : 154 ms QRS Dur : 094 ms QT Int : 368 ms P-R-T Axes : -13 -43 118 degrees QTc Int : 462 ms Normal sinus rhythm Left axis deviation Left ventricular hypertrophy with repolarization abnormality ( R in aVL ) Abnormal ECG When compared with ECG of 20-JUN-2016 17:02, T wave inversion less evident in Anterior leads Confirmed by Deangelo Ley ([id number]) on 06/14/2023 4:07:53 PM Referred By: Confirmed By:Deangelo Ley
[2023-06-14] MEDS ORDERED: SODIUM CHLORIDE 0.9% 1000ML 1,000 ML IV SCH (17:11)
[2023-06-14] MEDS: ONDANSETRON INJ 2 MG/ML 2 ML VIAL IV PRN (23:47)
[2023-06-15] MEDS ORDERED: PROMETHAZINE HCL 6.25 MG in SODIUM CHLORIDE 0.9% 50 ML IV PRN (04:28)
[2023-06-15] MEDS ORDERED: PROMETHAZINE HCL 6.25 MG in SODIUM CHLORIDE 0.9% 50 ML IV STA (04:29)
[2023-06-15] MEDS: LACTATED RINGER'S 1,000 ML IV SCH ×2 (05:17→18:03)
[2023-06-15 07:08] LABS: Hemoglobin 15.2 g/dl (12.0-16.0); Mean Corpuscular Hemoglobin 32.3 pg (25.0-34.0); Mean Corpuscular Hgb Conc 33.8 g/dL (32.0-36.0); Mean Corpuscular Volume 95.7 fL (80.0-100.0); Mean Platelet Volume 10.5 fL (9.4-12.4); Platelet Count 211 K/uL (130-400); RDW Coefficient of Variation 12.4 % (11.5-14.5); RDW Standard Deviation 44.2 fL (36.4-46.3); White Blood Count 6.39 K/ul (4.8-10.8)
--- NOTE | 2023-06-15 07:14 | XRay Report ---
XR chest 1V portable HISTORY: 77 years-old Female confirm NG tube placement status post placement of an enteric tube COMPARISON: CT abdomen and pelvis 06/13/2023, chest radiograph 08/23/2020 TECHNIQUE: AP view of the chest FINDINGS: Cardiac silhouette is enlarged. Left subclavian pacer/AICD. No pneumothorax, pleural effusion or over t pulmonary edema. Mild subsegmental bibasilar atelectasis. No lobar airspace consolidation to sugges t pneumonia. A large hiatal hernia containing the majority of the stomach. Distal tip of enteric tube projects over the left lung base. Bones appear grossly intact. Dilated small bowel loops of the uppe r abdomen. Cholecystectomy. IMPRESSION: 1. Large hiatal hernia with intrathoracic stomach. 2. Distal tip of enteric tube projects over the left lung base, likely within the intrathoracic stoma ch. 3. Cardiomegaly without pulmonary edema. ACT 112: Negative or not required by law. The above report was generated using voice recognition software. It may contain grammatical, syntax o r spelling errors. Electronically signed by: Ibrahima David M.D. 06/15/2023 7:12 AM
[2023-06-15 07:32] LABS: Albumin Globulin Ratio 1.6 (0.9-2); Albumin Level 4.1 gm/dl (3.4-5.0); BUN Creatinine Ratio 55.4 (10-20); Bilirubin,Total 1.1 mg/dl (0.2-1.0); Calcium 9.4 mg/dl (8.6-10.3); Creatinine Clr Calc Pharmacy 48.4 ml/min; Est GFR (African American) 69.6 ml/min; Est GFR (Non-African American) 60.1 ml/min; Globulin 2.5 gm/dl (2.5-4.0); Potassium 3.9 mmol/L (3.5-5.1); Total Protein 6.6 gm/dl (6.0-8.3)
--- NOTE | 2023-06-15 08:11 | Hospitalist Progress Note ---
Date of Service June 15, 2023 Assessment & Plan (1) SBO (small bowel obstruction): Plan: This is a 77yo F with a PMH of HFrEF, history of non-ischemic cardiomyopathy with ICD, sinus bradycardia, HTN, dyslipidemia, hypothyroidism, [place] and other medical problems listed below who presents with abdominal pain and outpatient CT findings of small bowel obstruction. N/V x 4 days, LLQ abdominal pain Outpatient CT abdomen findings with impression of high grade obstruction, diverticulosis without diverticulitis Has had 2 bowel movements earlier on day of admission KUB with findings are compatible with small bowel obstruction General surgery consulted Continue gentle IV fluids Overnight w/ nausea - NGT was placed Repeat KUB this AM (2) Hiatal hernia: Plan: Will need evaluation of large hiatal hernia as an outpatient at tertiary facility, per gen surg (3) Hypertension: Plan: Chronic, stable. Resume home amlodipine, Toprol once SBO resolved Holding spironolactone for now given dehydrated appearance (4) Sinus bradycardia: (5) NICM (nonischemic cardiomyopathy): (6) Presence of combination internal cardiac defibrillator (ICD) and pacemaker: Plan: Follows with [facility]. 2D echo from May 2022 reveals slight improvement in LVEF ~45% compared to 39%. Mild concentric LVH noted Resume meds when able as above (7) CAD (coronary artery disease): Plan: Resume aspirin, atorvastatin when able (8) Hyperlipidemia: Plan: Chronic, stable. Resume when able (9) Mood disorder: Plan: Resume SSRI when able DVT Ppx: SCDS for now Code status: FULL PCP: Dr. Villavicencio Dispo: med/surg Admission and Anticipated Discharge Date Admission Date: June 14, 2023 Subjective Pt seen in follow up of SBO Overnight NGT was placed Pt denies abd. pain but reports feeling bloated and having some nausea Surgery following closely KUB ordered this AM Review of Systems Review of Systems: All systems reviewed & are unremarkable except as noted in Subjective Physical Exam Physical Exam: General Appearance :WD/WN, in NAD H ead: normocephali c, atraumatic Eyes :normal inspecti on, PERRL, conjunc tivae normal, anic teric sclerae ENT: external ear and nose normal, orop harynx normal Neck : normal visual inspection Respira tory:normal respi ratory effort, macho gs clear to auscul tation, no wheeze, rales, rhonchi. No accessory muscl e use Cardiovascul ar: regular rate, rhythm, no murmur , normal periphera l pulses, no BLE e jessa. Vessels: no JVD Chest: normal inspection of amira st Abdomen/GI: LL Q TTP minimally , +some distention, hypoactive bowel s ounds Extremities/ Musculoskeletal:m oves extremities N eurologic: PERRL, EOMI, no face pal sy, no dysarthria, moves all extremit ies Psychiatric: A+Ox3, euthymic af fect Skin: no cayetano hes, normal color, warm/dry Results & Data Results & Data Vital Signs (Past 12 Hours) Vital Signs Temp Pulse Pulse Resp BP Pulse Ox O2 Del Method 06/15/23 07:48 Nasal Cannula 06/15/23 00:00 80 20 112/75 93 Room Air, CPAP 06/14/23 22:30 82 22 93 06/14/23 21:18 36.6 C 76 18 108/67 92 Room Air O2 Flow Rate FiO2 06/15/23 07:48 2 06/15/23 00:00 06/14/23 22:30 21 06/14/23 21:18 Laboratory Results 06/15/23 06/15/23 06/15/23 Range/Units 06:28 06:28 06:28 WBC 6.39 (4.8-10.8) K/ul RBC 4.70 (4.20-5.40) M/uL Hgb 15.2 (12.0-16.0) g/dl Hct 45.0 (37.0-47.0) % MCV 95.7 (80.0-100.0) fL MCH 32.3 (25.0-34.0) pg MCHC 33.8 (32.0-36.0) g/dL RDW Std Deviation 44.2 (36.4-46.3) fL RDW Coeff of Jose Angel 12.4 (11.5-14.5) % Plt Count 211 (130-400) K/uL MPV 10.5 (9.4-12.4) fL Immature Gran % (Auto) % Neut % (Auto) % Lymph % (Auto) % [place] % (Auto) % Eos % (Auto) % Baso % (Auto) % Neut # (Auto) (1.40-6.50) K/uL Lymph # (Auto) (1.2-3.4) K/uL [place] # (Auto) (0.11-0.59) K/uL Eos # (Auto) (0-0.50) K/uL Baso # (Auto) (0-0.2) K/uL Immature Gran # (Auto) (0.01-0.20) K/uL Sodium 134 L (136-145) mmol/L Potassium 3.9 (3.5-5.1) mmol/L Chloride 99 (98-107) mmol/L Carbon Dioxide 27 (21-32) mmol/L Anion Gap 8 (3-11) BUN 51 H (6-23) mg/dl Creatinine 0.92 D (0.6-1.2) mg/dl Est Cr Clr Drug Dosing 48.4 ml/min Est GFR ( Amer) 69.6 ml/min Est GFR (Non-Af Amer) 60.1 ml/min BUN/Creatinine Ratio 55.4 H (10-20) Glucose 104 H (70-99(Fasting)) mg/dl Calcium 9.4 D (8.6-10.3) mg/dl Total Bilirubin 1.1 H (0.2-1.0) mg/dl AST 17 (13-39) U/L ALT 31 (7-52) U/L Alkaline Phosphatase 51 (34-104) U/L Total Protein 6.6 (6.0-8.3) gm/dl Albumin 4.1 (3.4-5.0) gm/dl Globulin 2.5 (2.5-4.0) gm/dl Albumin/Globulin Ratio 1.6 (0.9-2) Hepatitis C Ab (EIA) Pending 06/14/23 06/14/23 Range/Units 12:00 12:00 WBC 10.58 (4.8-10.8) K/ul RBC 5.29 (4.20-5.40) M/uL Hgb 17.1 H (12.0-16.0) g/dl Hct 48.9 H (37.0-47.0) % MCV 92.4 (80.0-100.0) fL MCH 32.3 (25.0-34.0) pg MCHC 35.0 (32.0-36.0) g/dL RDW Std Deviation 41.9 (36.4-46.3) fL RDW Coeff of Jose Angel 12.2 (11.5-14.5) % Plt Count 246 (130-400) K/uL MPV 10.2 (9.4-12.4) fL Immature Gran % (Auto) 0.3 % Neut % (Auto) 81.3 % Lymph % (Auto) 7.1 % [place] % (Auto) 11.1 % Eos % (Auto) 0.0 % Baso % (Auto) 0.2 % Neut # (Auto) 8.61 H (1.40-6.50) K/uL Lymph # (Auto) 0.75 L (1.2-3.4) K/uL [place] # (Auto) 1.17 H (0.11-0.59) K/uL Eos # (Auto) 0.00 (0-0.50) K/uL Baso # (Auto) 0.02 (0-0.2) K/uL Immature Gran # (Auto) 0.03 (0.01-0.20) K/uL Sodium 131 L (136-145) mmol/L Potassium 4.2 (3.5-5.1) mmol/L Chloride 93 L (98-107) mmol/L Carbon Dioxide 26 (21-32) mmol/L Anion Gap 12 H (3-11) BUN 55 H (6-23) mg/dl Creatinine 1.52 H (0.6-1.2) mg/dl Est Cr Clr Drug Dosing 29.3 ml/min Est GFR ( Amer) 37.9 ml/min Est GFR (Non-Af Amer) 32.7 ml/min BUN/Creatinine Ratio 36.2 H (10-20) Glucose 136 H (70-99(Fasting)) mg/dl Calcium 11.5 H (8.6-10.3) mg/dl Total Bilirubin 1.2 H (0.2-1.0) mg/dl AST 22 (13-39) U/L ALT 43 (7-52) U/L Alkaline Phosphatase 57 (34-104) U/L Total Protein 7.6 (6.0-8.3) gm/dl Albumin 4.6 (3.4-5.0) gm/dl Globulin 3.0 (2.5-4.0) gm/dl Albumin/Globulin Ratio 1.5 (0.9-2) Hepatitis C Ab (EIA) Medications Administered Current Inpatient Medications Acetaminophen (Ofirmev) 1,000 mg in 100 mls @ 400 mls/hr IV Q8H PRN PRN Reason: Pain or Fever Stop: 06/17/23 17:10 Promethazine HCl 6.25 mg/ (Sodium Chloride) 50.25 mls @ 201 mls/hr IV Q6H PRN PRN Reason: Nausea And Vomiting Stop: 07/15/23 04:27 Lactated Ringer's (Lr) 1,000 mls @ 75 mls/hr IV .[id number] [facility] Stop: 07/15/23 04:59 Last Admin: 06/15/23 05:17 Dose: 75 mls/hr Ondansetron HCl (Ondansetron Inj 2 Mg/Ml 2 Ml Vial) 4 mg IV Q6H PRN PRN Reason: Nausea Stop: 07/14/23 17:10 Last Admin: 06/14/23 23:47 Dose: 4 mg
--- NOTE | 2023-06-15 09:37 | XRay Report ---
KUB HISTORY: Small bowel obstruction. Follow-up. COMPARISON: KUB 06/14/2023. FINDINGS: Gaseous distention of the small bowel is again noted. This has slightly improved. This shanika ures up to 4.3 cm in diameter. Oral contrast is seen throughout the colon. A nasogastric tube appears to terminate in the stomach. Prior cholecystectomy. Postoperative changes again noted within the lef t hip. No renal calculi. No ureteral calculi. No pneumoperitoneum or pneumatosis. IMPRESSION: 1. Slight improvement in the dilated gas-filled loops of small bowel consistent with a persistent sma ll bowel obstruction. 2. Nasogastric tube likely terminates in the stomach. ACT 112: Negative or not required by law. Electronically signed by: Rashad Duenas M.D. 06/15/2023 9:35 AM
--- NOTE | 2023-06-15 09:47 | Surgery Progress Note ---
Date of Service June 15, 2023 Assessment & Plan (1) Small bowel obstruction due to adhesions: Plan: Patient admitted with SBO Originally feeling fairly well, kept NPO with IVF as she was having + flatus/BMs Yesterday evening into this AM developed worsening nausea associated with vomiting NGT placed this AM...still has some feelings of nausea KUB obtained revealed improvement in SBO picture, however would continue NGT/bowel rest for today and await for ongoing symptom improvement Encouraged OOB as tolerates, may clamp NGT to walk halls Admission and Anticipated Discharge Date Admission Date: June 14, 2023 Supervising Physician Co-Signing Physician Notes Patient seen and examined, labs and imaging reviewed, agree with above. 77-year-old female admitted with small bowel obstruction. NG tube placed overnight for nausea and vomiting. She still feels a little bloated and states she has not had a bowel movement since the few she had yesterday. On exam she is afebrile with stable vitals. Her abdomen is soft, moderately distended, minimally tender to palpation. No guarding or rebound. Labs unremarkable. NG tube with decent output. KUB showed contrast in the colon but slightly improved dilation of the small bowel. Appears that she is slightly improved from the CT scan the other night, but still with persistent symptoms. We will continue with the NG tube and nonoperative management for now. Subjective Patient reports + n/v overnight and into this AM. NGT placed. She still has some feelings of nausea and pain. Reports less flatus. last BM documented around 2am. Physical Exam Physical Exam: awake/alert Gastrointestinal (Abdomen): Inspection/Auscultation: + abdomen distended Percussion/Palpation: + abdomen tender (some discomfort in mid abdomen ) and abdomen soft; no guarding NGT in place with bilious fluid >600cc Results & Data Vital Signs (Past 12 Hours) Vital Signs Pulse Pulse Resp BP Pulse Ox O2 Del Method O2 Flow Rate 06/15/23 08:20 82 16 116/78 97 Nasal Cannula 2 06/15/23 07:48 Nasal Cannula 2 06/15/23 00:00 80 20 112/75 93 Room Air, CPAP 06/14/23 22:30 82 22 93 FiO2 06/15/23 08:20 06/15/23 07:48 06/15/23 00:00 06/14/23 22:30 21 PG Care Time/CCT Total # of Minutes Spent Total Time Spent with Patient: Total time spent is greater than 50% in coordination of care (as documented) at patient's floor/unit and/or counseling patient: Coding Level of Care Code 46046 SUB INP/OBS CARE 1/25MIN Diagnoses Small bowel obstruction due to adhesions K56.50
[2023-06-15] MEDS: ONDANSETRON INJ 2 MG/ML 2 ML VIAL IV PRN (12:42)
[2023-06-15] MEDS: ACETAMINOPHEN 1,000 MG/100 ML VIAL IV PRN (20:11)
[2023-06-16] MEDS: ONDANSETRON INJ 2 MG/ML 2 ML VIAL IV PRN (02:18)
[2023-06-16] MEDS ORDERED: COUGH DROP (SUGAR FREE) LOZ 24 LOZ/1 BOX BUCCAL ONE (02:23)
[2023-06-16 06:32] LABS: Hematocrit (blood only) 41.2 % (37.0-47.0); Hemoglobin 13.9 g/dl (12.0-16.0); Mean Corpuscular Hemoglobin 32.6 pg (25.0-34.0); Mean Corpuscular Hgb Conc 33.7 g/dL (32.0-36.0); Mean Corpuscular Volume 96.7 fL (80.0-100.0); Mean Platelet Volume 10.2 fL (9.4-12.4); Platelet Count 169 K/uL (130-400); RDW Coefficient of Variation 12.2 % (11.5-14.5); RDW Standard Deviation 43.3 fL (36.4-46.3); Red Blood Count 4.26 M/uL (4.20-5.40); White Blood Count 4.69 K/ul (4.8-10.8)
[2023-06-16] MEDS: LACTATED RINGER'S 1,000 ML IV SCH (07:28)
[2023-06-16] MEDS: ACETAMINOPHEN 1,000 MG/100 ML VIAL IV PRN ×2 (07:29→16:08)
[2023-06-16 07:43] LABS: BUN Creatinine Ratio 51.4 (10-20); Calcium 8.4 mg/dl (8.6-10.3); Creatinine Clr Calc Pharmacy 63.6 ml/min; Est GFR (African American) 96.9 ml/min; Est GFR (Non-African American) 83.6 ml/min; Magnesium 2.4 mg/dl (1.7-2.4); Potassium 3.4 mmol/L (3.5-5.1)
--- NOTE | 2023-06-16 08:09 | Hospitalist Progress Note ---
Date of Service June 16, 2023 Assessment & Plan (1) SBO (small bowel obstruction): Plan: This is a 77yo F with a PMH of HFrEF, history of non-ischemic cardiomyopathy with ICD, sinus bradycardia, HTN, dyslipidemia, hypothyroidism, [place] and other medical problems listed below who presents with abdominal pain and outpatient CT findings of small bowel obstruction. N/V x 4 days, LLQ abdominal pain Outpatient CT abdomen findings with impression of high grade obstruction, diverticulosis without diverticulitis Has had 2 bowel movements earlier on day of admission KUB with findings are compatible with small bowel obstruction General surgery consulted Continue gentle IV fluids Overnight w/ nausea - NGT was placed Repeat KUB this AM 06/16 Pt continues to have NGT and fairly high output + passing flatus and had small BM Surgery following closely, plan to continue conservative management repeat KUB encouraged ambulation + increased abdominal cramps today replacing electrolytes, goal K >4 (2) Hiatal hernia: Plan: Will need evaluation of large hiatal hernia as an outpatient at tertiary facility, per gen surg (3) Hypertension: Plan: Chronic, stable. Resume home amlodipine, Toprol once SBO resolved Holding spironolactone for now given dehydrated appearance (4) Sinus bradycardia: (5) NICM (nonischemic cardiomyopathy): (6) Presence of combination internal cardiac defibrillator (ICD) and pacemaker: Plan: Follows with [facility]. 2D echo from May 2022 reveals slight improvement in LVEF ~45% compared to 39%. Mild concentric LVH noted Resume meds when able as above (7) CAD (coronary artery disease): Plan: Resume aspirin, atorvastatin when able (8) Hyperlipidemia: Plan: Chronic, stable. Resume when able (9) Mood disorder: Plan: Resume SSRI when able DVT Ppx: SCDS for now Code status: FULL PCP: Dr. Villavicencio Dispo: med/surg Admission and Anticipated Discharge Date Admission Date: June 15, 2023 Subjective Pt seen in follow up of SBO NGT placed Pt reports feeling bloated and having abdominal cramps She was able to pass some flatus and have a small BM Surgery following closely, plan to continue w/ conservative management KUB ordered this AM Review of Systems Review of Systems: All systems reviewed & are unremarkable except as noted in Subjective Physical Exam Physical Exam: General Appearance :WD/WN, in NAD H ead: normocephali c, atraumatic Eyes :normal inspecti on, PERRL, conjunc tivae normal, anic teric sclerae ENT: external ear and nose normal, orop harynx normal Neck : normal visual inspection Respira tory:normal respi ratory effort, macho gs clear to auscul tation, no wheeze, rales, rhonchi. No accessory muscl e use Cardiovascul ar: regular rate, rhythm, no murmur , normal periphera l pulses, no BLE e jessa. Vessels: no JVD Chest: normal inspection of amira st Abdomen/GI: LL Q TTP minimally , +some distention, hypoactive bowel s ounds Extremities/ Musculoskeletal:m oves extremities N eurologic: PERRL, EOMI, no face pal sy, no dysarthria, moves all extremit ies Psychiatric: A+Ox3, euthymic af fect Skin: no cayetano hes, normal color, warm/dry Results & Data Results & Data Vital Signs (Past 12 Hours) Vital Signs Temp Pulse Resp BP Pulse Ox O2 Del Method O2 Flow Rate 06/16/23 07:36 Room Air 06/16/23 07:00 36.6 C 72 16 116/74 93 Room Air 06/15/23 22:19 114/72 95 Nasal Cannula 2 06/15/23 22:09 36.8 C 72 18 95/55 L 91 Room Air 06/15/23 20:10 Nasal Cannula 2 Laboratory Results 06/16/23 06/16/23 Range/Units 05:43 05:43 WBC 4.69 L (4.8-10.8) K/ul RBC 4.26 (4.20-5.40) M/uL Hgb 13.9 (12.0-16.0) g/dl Hct 41.2 (37.0-47.0) % MCV 96.7 (80.0-100.0) fL MCH 32.6 (25.0-34.0) pg MCHC 33.7 (32.0-36.0) g/dL RDW Std Deviation 43.3 (36.4-46.3) fL RDW Coeff of Jose Angel 12.2 (11.5-14.5) % Plt Count 169 (130-400) K/uL MPV 10.2 (9.4-12.4) fL Sodium 137 (136-145) mmol/L Potassium 3.4 L (3.5-5.1) mmol/L Chloride 103 (98-107) mmol/L Carbon Dioxide 28 (21-32) mmol/L Anion Gap 6 (3-11) BUN 36 H (6-23) mg/dl Creatinine 0.70 (0.6-1.2) mg/dl Est Cr Clr Drug Dosing 63.6 ml/min Est GFR ( Amer) 96.9 ml/min Est GFR (Non-Af Amer) 83.6 ml/min BUN/Creatinine Ratio 51.4 H (10-20) Glucose 77 (70-99(Fasting)) mg/dl Calcium 8.4 L (8.6-10.3) mg/dl Phosphorus 2.0 L (2.5-4.9) mg/dl Magnesium 2.4 (1.7-2.4) mg/dl Medications Administered Current Inpatient Medications Acetaminophen (Ofirmev) 1,000 mg in 100 mls @ 400 mls/hr IV Q8H PRN PRN Reason: Pain or Fever Stop: 06/17/23 17:10 Last Infusion: 06/16/23 08:06 Dose: Infused Promethazine HCl 6.25 mg/ (Sodium Chloride) 50.25 mls @ 201 mls/hr IV Q6H PRN PRN Reason: Nausea And Vomiting Stop: 07/15/23 04:27 Lactated Ringer's (Lr) 1,000 mls @ 75 mls/hr IV .[id number] [facility] Stop: 07/15/23 04:59 Last Admin: 06/16/23 07:28 Dose: 75 mls/hr Potassium Chloride (K Jona / Wtr) 10 meq in 100 mls @ 100 mls/hr IV Q1H [facility] Stop: 06/16/23 10:14 Ondansetron HCl (Ondansetron Inj 2 Mg/Ml 2 Ml Vial) 4 mg IV Q6H PRN PRN Reason: Nausea Stop: 07/14/23 17:10 Last Admin: 06/16/23 02:18 Dose: 4 mg
--- NOTE | 2023-06-16 08:33 | Surgery Progress Note ---
Date of Service June 16, 2023 Assessment & Plan (1) SBO (small bowel obstruction): Plan: Patient sitting up in bed reports feeling better than yesterday, NG tube is uncomfortable Requesting fluids PO, currently NPO. NG tube output 500ml in 12hr, 1100ml last 24. Will keep NPO for now. Had two BMs this AM, passing flatus denies Sob, CP, fever, chills. Encouraged Patient to ambulate in halls, may clamp NG tube to do this. No abdominal pain reported, however feels bloated in upper quadrant, pt does have noted hiatal hernia WBC 4.6 , VSS Admission and Anticipated Discharge Date Admission Date: June 15, 2023 Supervising Physician Co-Signing Physician Notes Patient seen and examined, agree with above. Admitted with SBO, NG tube output still fairly high but slowing down. Her abdomen feels better, occasional cramping. She has had 2 or 3 bowel movements over the past 24 hours. On exam she is afebrile with stable vitals. Her abdomen is soft, nontender, moderately distended. NG tube with 1100 cc over 24 hours. Labs unremarkable. KUB pending. If patient continues to improve and NG tube put remains low, may try clamping trial later today. No surgical intervention at this time. Subjective Patient sitting up in bed reports feeling better than yesterday, NG tube is uncomfortable Requesting fluids PO, currently NPO Had two BMs this AM, passing flatus denies Sob, CP, fever, chills, Review of Systems Constitutional: no fever, no chills and no sweats Respiratory: no dyspnea Cardiovascular: no chest pain Gastrointestinal: + bloating; no abdominal pain, no nausea and no vomiting Genitourinary: no problem reported Physical Exam Constitutional: cooperative and comfortable Respiratory: normal respiratory effort and able to speak in complete sentences; no respiratory distress and does not use accessory muscles Cardiovascular: Rate/Rhythm: regular rate Gastrointestinal (Abdomen): Inspection/Auscultation: abdomen not distended Percussion/Palpation: abdomen soft; abdomen nontender and no guarding Results & Data Vital Signs (Past 12 Hours) Vital Signs Temp Pulse Resp BP Pulse Ox O2 Del Method O2 Flow Rate 06/16/23 07:36 Room Air 06/16/23 07:00 97.9 F 72 16 116/74 93 Room Air 06/15/23 22:19 114/72 95 Nasal Cannula 2 06/15/23 22:09 98.2 F 72 18 95/55 L 91 Room Air PG Care Time/CCT Total # of Minutes Spent Total Time Spent with Patient: Total time spent is greater than 50% in coordination of care (as documented) at patient's floor/unit and/or counseling patient: Coding Level of Care Code 44978 SUB INP/OBS CARE 2/35MIN Diagnoses SBO (small bowel obstruction) K56.609
[2023-06-16] MEDS: POTASSIUM CHLORIDE / WTR 10 MEQ/100 ML PLCT IV SCH ×2 (08:49→10:38)
--- NOTE | 2023-06-16 09:54 | XRay Report ---
XR KUB/Abdomen 1 view CLINICAL HISTORY: sbo TECHNIQUE: 1 view of the abdomen was obtained. Comparison: Comparison is made to abdomen radiograph 06/15/2023 FINDINGS: Lines and tubes are stable. Degenerative changes are seen in the visualized skeleton. Gas distended l oops of small bowel remain measuring up to 44 mm. A moderate amount of stool is noted within the larg e bowel. IMPRESSION: 1. Redemonstration of gas distended loops of small bowel compatible with persistent small bowel obst ruction. 2. Stable NG tube. ACT 112: Negative or not required by law. Electronically signed by: Poncho Rubin M.D. 06/16/2023 9:53 AM
[2023-06-16] MEDS ORDERED: POTASSIUM PHOS 3 MMOL/1 ML INFUSION IV STA (13:12)
[2023-06-16] MEDS ORDERED: MoRPHine SULFATE 2 MG/ML CARP IV PRN (13:25)
[2023-06-16] MEDS ORDERED: POTASSIUM PHOSPHATE 15 MMOL in SODIUM CHLORIDE 0.9% 250 ML IV ONE (13:30)
--- NOTE | 2023-06-16 15:40 | Communication Note ---
Date of Service: June 16, 2023 Surgery notified the patient had increasing abdominal cramping. 77-year-old female with small bowel obstruction. Treated with IV pain meds prior to my ar rival, and the pain is subsided. On exam she is stable, NG tube output has decreased significantly and appears to be less bilious. Her abdomen is soft, mildly distended, and no significant tenderness or guarding noted. KUB from earlier today showed some persistent dilation of the bowel but contrast in the colon as well as slight decrease in the dilation of the bowel. This appears to represent a slowly resolving small bowel obstruction. No surgical intervention at this time, repeat KUB in the morning.
[2023-06-17] MEDS: LACTATED RINGER'S 1,000 ML IV SCH ×2 (02:53→14:00)
[2023-06-17 07:03] LABS: Hematocrit (blood only) 43.3 % (37.0-47.0); Hemoglobin 14.4 g/dl (12.0-16.0); Mean Corpuscular Hgb Conc 33.3 g/dL (32.0-36.0); Mean Corpuscular Volume 96.2 fL (80.0-100.0); Mean Platelet Volume 10.2 fL (9.4-12.4); Platelet Count 165 K/uL (130-400); RDW Standard Deviation 42.5 fL (36.4-46.3); White Blood Count 5.46 K/ul (4.8-10.8)
[2023-06-17 08:02] LABS: Calcium 8.4 mg/dl (8.6-10.3); Creatinine Clr Calc Pharmacy 89.1 ml/min; Est GFR (African American) 108.2 ml/min; Est GFR (Non-African American) 93.4 ml/min; Potassium 3.8 mmol/L (3.5-5.1)
[2023-06-17 08:13] LABS: Magnesium 2.5 mg/dl (1.7-2.4); Phosphorus 1.4 mg/dl (2.5-4.9)
[2023-06-17] MEDS ORDERED: POTASSIUM PHOS 3 MMOL/1 ML INFUSION IV STA (08:14)
--- NOTE | 2023-06-17 08:14 | Hospitalist Progress Note ---
Date of Service June 17, 2023 Assessment & Plan (1) SBO (small bowel obstruction): Plan: This is a 77yo F with a PMH of HFrEF, history of non-ischemic cardiomyopathy with ICD, sinus bradycardia, HTN, dyslipidemia, hypothyroidism, [place] and other medical problems listed below who presents with abdominal pain and outpatient CT findings of small bowel obstruction. N/V x 4 days, LLQ abdominal pain Outpatient CT abdomen findings with impression of high grade obstruction, diverticulosis without diverticulitis Has had 2 bowel movements earlier on day of admission KUB with findings are compatible with small bowel obstruction General surgery consulted Continue gentle IV fluids Overnight w/ nausea - NGT was placed Repeat KUB in AM 06/16 Pt continues to have NGT and fairly high output + passing flatus and had small BM Surgery following closely, plan to continue conservative management repeat KUB encouraged ambulation + increased abdominal cramps today replacing electrolytes, goal K >4 06/17 Pt feels improved Denies abd. pain or cramping NG output decreased Pt ambulated today Plan to start PPN today (2) Hiatal hernia: Plan: Will need evaluation of large hiatal hernia as an outpatient at tertiary facility, per gen surg (3) Hypertension: Plan: Chronic, stable. Resume home amlodipine, Toprol once SBO resolved Holding spironolactone for now given dehydrated appearance (4) Sinus bradycardia: (5) NICM (nonischemic cardiomyopathy): (6) Presence of combination internal cardiac defibrillator (ICD) and pacemaker: Plan: Follows with [facility]. 2D echo from May 2022 reveals slight improvement in LVEF ~45% compared to 39%. Mild concentric LVH noted Resume meds when able as above (7) CAD (coronary artery disease): Plan: Resume aspirin, atorvastatin when able (8) Hyperlipidemia: Plan: Chronic, stable. Resume when able (9) Mood disorder: Plan: Resume SSRI when able DVT Ppx: SCDS for now Code status: FULL PCP: Dr. Villavicencio Dispo: med/surg Admission and Anticipated Discharge Date Admission Date: June 15, 2023 Subjective Pt seen in follow up of SBO NGT placed Pt reports feeling improved today, she is sitting in her chair She had a small BM this AM No abd. pain or cramping today NG output decreased Surgery following closely, plan to continue w/ conservative management KUB ordered this AM Discussed w/ surgery - plan to start PPN today Review of Systems Review of Systems: All systems reviewed & are unremarkable except as noted in Subjective Physical Exam Physical Exam: General Appearance :WD/WN, in NAD H ead: normocephali c, atraumatic Eyes :normal inspecti on, PERRL, conjunc tivae normal, anic teric sclerae ENT: external ear and nose normal, orop harynx normal Neck : normal visual inspection Respira tory:normal respi ratory effort, macho gs clear to auscul tation, no wheeze, rales, rhonchi. No accessory muscl e use Cardiovascul ar: regular rate, rhythm, no murmur , normal periphera l pulses, no BLE e jessa. Vessels: no JVD Chest: normal inspection of amira st Abdomen/GI: LL Q TTP minimally (i mproved) , +some d istention, + bowel sounds Extremitie s/Musculoskeletal: moves extremities Neurologic: PERR L, EOMI, no face p alsy, no dysarthri a,moves all extrem ities Psychiatric: A+Ox3, euthymic affect Skin: no r ashes, normal colo r, warm/dry Results & Data Results & Data Vital Signs (Past 12 Hours) Vital Signs Temp Pulse Resp BP Pulse Ox O2 Del Method 06/16/23 21:22 37.0 C 80 18 125/77 92 Room Air Laboratory Results 06/17/23 06/17/23 Range/Units 06:40 06:40 WBC 5.46 (4.8-10.8) K/ul RBC 4.50 (4.20-5.40) M/uL Hgb 14.4 (12.0-16.0) g/dl Hct 43.3 (37.0-47.0) % MCV 96.2 (80.0-100.0) fL MCH 32.0 (25.0-34.0) pg MCHC 33.3 (32.0-36.0) g/dL RDW Std Deviation 42.5 (36.4-46.3) fL RDW Coeff of Jose Angel 12.0 (11.5-14.5) % Plt Count 165 (130-400) K/uL MPV 10.2 (9.4-12.4) fL Sodium 137 (136-145) mmol/L Potassium 3.8 (3.5-5.1) mmol/L Chloride 104 (98-107) mmol/L Carbon Dioxide 23 (21-32) mmol/L Anion Gap 10 (3-11) BUN 21 (6-23) mg/dl Creatinine 0.50 L (0.6-1.2) mg/dl Est Cr Clr Drug Dosing 89.1 ml/min Est GFR ( Amer) 108.2 ml/min Est GFR (Non-Af Amer) 93.4 ml/min BUN/Creatinine Ratio 42.0 H (10-20) Glucose 66 L (70-99(Fasting)) mg/dl Calcium 8.4 L (8.6-10.3) mg/dl Phosphorus 1.4 L* (2.5-4.9) mg/dl Magnesium 2.5 H (1.7-2.4) mg/dl Medications Administered Current Inpatient Medications Acetaminophen (Ofirmev) 1,000 mg in 100 mls @ 400 mls/hr IV Q8H PRN PRN Reason: Pain or Fever Stop: 06/17/23 17:10 Last Infusion: 06/16/23 16:25 Dose: Infused Promethazine HCl 6.25 mg/ (Sodium Chloride) 50.25 mls @ 201 mls/hr IV Q6H PRN PRN Reason: Nausea And Vomiting Stop: 07/15/23 04:27 Lactated Ringer's (Lr) 1,000 mls @ 75 mls/hr IV .[id number] [facility] Stop: 06/17/23 15:59 Last Admin: 06/17/23 02:53 Dose: 75 mls/hr Potassium Phosphate 21 mmol/ (Sodium Chloride) 507 mls @ 135 mls/hr IV ONE ONE Stop: 06/17/23 12:15 Last Infusion: 06/17/23 10:20 Dose: 135 mls/hr Dextrose (D10w) 1,000 mls @ 0 mls/hr IV .Q0M PRN PRN Reason: protocol (see label comments) Stop: 07/17/23 10:01 Fat Emulsion-[place] Oil/Soybean Oil (Clinolipid 20% Iv Fat Emulsion) 150 mls @ 41 mls/hr IV .Q3H40M [facility] Stop: 06/17/23 19:39 Amino Acids 1,708 ml/ (Nutrition (Parenteral)) 1,708 mls @ 71.2 mls/hr IV .Q24H [facility]; Protocol Stop: 06/18/23 15:59 Miscellaneous (Stop Clinolipid) 1 each N/A TODAY@22 [facility] Stop: 06/17/23 22:01 Miscellaneous Information (Tpn/Ppn Consult Pharmacy) 1 each N/A UD PRN PRN Reason: Consult Stop: 07/17/23 10:16 Morphine Sulfate (Morphine Sulfate 2 Mg/Ml Carp) 1 mg IV Q4H PRN PRN Reason: Pain Stop: 06/30/23 13:24 Last Admin: 06/16/23 13:42 Dose: 1 mg Ondansetron HCl (Ondansetron Inj 2 Mg/Ml 2 Ml Vial) 4 mg IV Q6H PRN PRN Reason: Nausea Stop: 07/14/23 17:10 Last Admin: 06/16/23 02:18 Dose: 4 mg
[2023-06-17] MEDS ORDERED: POTASSIUM PHOSPHATE 21 MMOL in SODIUM CHLORIDE 0.9% 500 ML IV ONE (08:30)
--- NOTE | 2023-06-17 09:27 | XRay Report ---
KUB HISTORY: Acute generalized abdominal pain with reported small bowel obstruction eval SBO COMPARISON: KUB 06/16/2023 FINDINGS: Contrast noted within the large bowel. Distended air-filled loops of small bowel measure up to 4.9 cm, similar to prior. Cholecystectomy. Cardiomegaly with pacer/AICD and layering pleural effu sions. Colonic diverticulosis. Large hiatal hernia. No renal calculi. No ureteral calculi. No pneumop eritoneum or pneumatosis. Partially imaged left proximal femoral ORIF changes. IMPRESSION: 1. Contrast noted within the large bowel. 2. There is persistent small bowel dilation which may represent ongoing obstruction. Continued follow -up recommended. 3. Cholecystectomy. 4. Large hiatal hernia. ACT 112: Negative or not required by law. The above report was generated using voice recognition software. It may contain grammatical, syntax o r spelling errors. Electronically signed by: Ibrahima David M.D. 06/17/2023 9:26 AM
--- NOTE | 2023-06-17 10:01 | Surgery Progress Note ---
Date of Service June 17, 2023 Assessment & Plan (1) SBO (small bowel obstruction): Plan: Small bowel obstruction with partial resolution. Her NG tube output has decreased significantly and she is having bowel movements and passing gas. The contrast was moved into her colon as was seen on prior scans. She still has some persistent dilation of the small bowel. She may benefit from continued suction, possible clamp trial tomorrow if continues to improve. No surgical intervention at this time Continue NG tube to low intermittent wall suction Start PPN Repeat KUB in the morning If continued improvement and low NG tube output, may perform clamp trial tomor row If persists over the weekend then will attempt a contrast study Dr. Medina covering over the weekend Admission and Anticipated Discharge Date Admission Date: June 15, 2023 Subjective Admitted with small bowel obstruction, passing flatus and had a bowel movement. She states her abdomen feels much better and has not had any recurrence of the cramping she had yesterday afternoon. Physical Exam Constitutional: WD/WN, vitals as above + obese Gastrointestinal (Abdomen): Inspection/Auscultation: + abdomen distended (Mild ) Percussion/Palpation: abdomen soft; abdomen nontender, no guarding, abdomen not rigid and no hepatosplenomegaly Results & Data Vital Signs (Past 12 Hours) Vital Signs Temp Pulse Resp BP Pulse Ox O2 Del Method 06/17/23 08:22 37.2 C 72 17 139/81 92 Room Air Laboratory Results Laboratory Results - last 24 hr 06/17/23 06/17/23 06:40 06:40 WBC 5.46 RBC 4.50 Hgb 14.4 Hct 43.3 MCV 96.2 MCH 32.0 MCHC 33.3 RDW Std Deviation 42.5 RDW Coeff of Jose Angel 12.0 Plt Count 165 MPV 10.2 Sodium 137 Potassium 3.8 Chloride 104 Carbon Dioxide 23 Anion Gap 10 BUN 21 Creatinine 0.50 L Est Cr Clr Drug Dosing 89.1 Est GFR ( Amer) 108.2 Est GFR (Non-Af Amer) 93.4 BUN/Creatinine Ratio 42.0 H Glucose 66 L Calcium 8.4 L Phosphorus 1.4 L* Magnesium 2.5 H Diagnostic Findings KUB HISTORY: Acute generalized abdominal pain with reported small bowel obstruction eval SBO COMPARISON: KUB 06/16/2023 FINDINGS: Contrast noted within the large bowel. Distended air-filled loops of small bowel measure up to 4.9 cm, similar to prior. Cholecystectomy. Cardiomegaly with pacer/AICD and layering pleural effusions. Colonic diverticulosis. Large hiatal hernia. No renal calculi. No ureteral calculi. No pneumoperitoneum or pneumatosis. Partially imaged left proximal femoral ORIF changes. IMPRESSION: 1. Contrast noted within the large bowel. 2. There is persistent small bowel dilation which may represent ongoing obstruction. Continued follow-up recommended. 3. Cholecystectomy. 4. Large hiatal hernia. ACT 112: Negative or not required by law. PG Care Time/CCT Total # of Minutes Spent Total Time Spent with Patient: Total time spent is greater than 50% in coordination of care (as documented) at patient's floor/unit and/or counseling patient: Coding Level of Care Code 10743 SUB INP/OBS CARE 2/35MIN Diagnoses SBO (small bowel obstruction) K56.609
[2023-06-17] MEDS ORDERED: DEXTROSE 10% 1,000 ML IV PRN ×2 (10:02→11:58)
[2023-06-17] MEDS ORDERED: TPN/PPN CONSULT PHARMACY PRN (10:17)
[2023-06-17] MEDS ORDERED: SODIUM PHOSPHATE 15 MMOL in SODIUM CHLORIDE 0.9% 250 ML IV ONE (15:45)
[2023-06-17] MEDS ORDERED: PERIPHERAL TPN IV SCH (16:00)
[2023-06-17] MEDS ORDERED: [UNRECOGNIZED DRUG - OTHER] IV SCH (16:00)
[2023-06-17] MEDS ORDERED: CLINOLIPID 20% IV FAT EMULSION 150 ML IV SCH (16:00)
[2023-06-17] MEDS ORDERED: DEXTROSE 50% 50 ML SYRINGE IV STA (18:20)
[2023-06-17] MEDS ORDERED: STOP CLINOLIPID SCH (20:00)
[2023-06-18] MEDS ORDERED: LORazepam 0.5 MG TAB SL STA ×2 (03:23→20:26)
--- NOTE | 2023-06-18 07:46 | Hospitalist Progress Note ---
Date of Service June 18, 2023 Assessment & Plan (1) SBO (small bowel obstruction): Plan: This is a 77yo F with a PMH of HFrEF, history of non-ischemic cardiomyopathy with ICD, sinus bradycardia, HTN, dyslipidemia, hypothyroidism, [place] and other medical problems listed below who presents with abdominal pain and outpatient CT findings of small bowel obstruction. N/V x 4 days, LLQ abdominal pain Outpatient CT abdomen findings with impression of high grade obstruction, diverticulosis without diverticulitis Has had 2 bowel movements earlier on day of admission KUB with findings are compatible with small bowel obstruction General surgery consulted Continue gentle IV fluids Overnight w/ nausea - NGT was placed Repeat KUB in AM 06/16 Pt continues to have NGT and fairly high output + passing flatus and had small BM Surgery following closely, plan to continue conservative management repeat KUB encouraged ambulation + increased abdominal cramps today replacing electrolytes, goal K >4 06/17 Pt feels improved Denies abd. pain or cramping NG output decreased Pt ambulated today Plan to start PPN today 06/18 NGT output much decreased Had BM today Feeling better overall KUB ordered (2) Hiatal hernia: Plan: Will need evaluation of large hiatal hernia as an outpatient at tertiary facility, per gen surg (3) Hypertension: Plan: Chronic, stable. Resume home amlodipine, Toprol once SBO resolved Holding spironolactone for now given dehydrated appearance (4) Sinus bradycardia: (5) NICM (nonischemic cardiomyopathy): (6) Presence of combination internal cardiac defibrillator (ICD) and pacemaker: Plan: Follows with [facility]. 2D echo from May 2022 reveals slight improvement in LVEF ~45% compared to 39%. Mild concentric LVH noted Resume meds when able as above (7) CAD (coronary artery disease): Plan: Resume aspirin, atorvastatin when able (8) Hyperlipidemia: Plan: Chronic, stable. Resume when able (9) Mood disorder: Plan: Resume SSRI when able DVT Ppx: SCDS for now Code status: FULL PCP: Dr. Villavicencio Dispo: med/surg Admission and Anticipated Discharge Date Admission Date: June 15, 2023 Subjective Pt seen in follow up of SBO NGT still placed but output much decreased She also had a BM today Overall she feels better No abd. pain or cramping or nausea today Surgery following closely KUB ordered this AM Review of Systems Review of Systems: All systems reviewed & are unremarkable except as noted in Subjective Physical Exam Physical Exam: General Appearance :WD/WN, in NAD H ead: normocephali c, atraumatic Eyes :normal inspecti on, PERRL, conjunc tivae normal, anic teric sclerae ENT: external ear and nose normal, orop harynx normal Neck : normal visual inspection Respira tory:normal respi ratory effort, macho gs clear to auscul tation, no wheeze, rales, rhonchi. No accessory muscl e use Cardiovascul ar: regular rate, rhythm, no murmur , normal periphera l pulses, no BLE e jessa. Vessels: no JVD Chest: normal inspection of amira st Abdomen/GI:no LLQ TTP (resolved) , + some distentio n, + bowel sounds Extremities/Muscul oskeletal:moves e xtremities Neurolo gic: PERRL, EOMI, no face palsy, no dysarthria,moves all extremities Ps ychiatric:A+Ox3, euthymic affect S kin: no rashes, n ormal color, warm/ dry Results & Data Results & Data Vital Signs (Past 12 Hours) Vital Signs Temp Pulse Resp BP Pulse Ox O2 Del Method O2 Flow Rate 06/17/23 22:08 36.9 C 74 18 162/78 H 95 Nasal Cannula 2 Laboratory Results 06/18/23 06/18/23 06/18/23 Range/Units 11:37 09:02 03:36 Sodium 135 L (136-145) mmol/L Potassium 3.4 L (3.5-5.1) mmol/L Chloride 106 (98-107) mmol/L Carbon Dioxide 23 (21-32) mmol/L Anion Gap 6 (3-11) BUN 19 (6-23) mg/dl Creatinine 0.40 L (0.6-1.2) mg/dl Est Cr Clr Drug Dosing 111.3 ml/min Est GFR ( Amer) 116.4 ml/min Est GFR (Non-Af Amer) 100.5 ml/min BUN/Creatinine Ratio 47.5 H (10-20) Glucose 190 H (70-99(Fasting)) mg/dl POC Glucose 149 H 184 H (70-99) mg/dl Calcium 7.9 L (8.6-10.3) mg/dl Phosphorus < 1.0 L* D (2.5-4.9) mg/dl Magnesium 2.2 (1.7-2.4) mg/dl Hepatitis C Ab (EIA) (NON-REACTIVE) 06/17/23 06/17/23 06/17/23 Range/Units 21:00 18:14 18:13 Sodium (136-145) mmol/L Potassium (3.5-5.1) mmol/L Chloride (98-107) mmol/L Carbon Dioxide (21-32) mmol/L Anion Gap (3-11) BUN (6-23) mg/dl Creatinine (0.6-1.2) mg/dl Est Cr Clr Drug Dosing ml/min Est GFR ( Amer) ml/min Est GFR (Non-Af Amer) ml/min BUN/Creatinine Ratio (10-20) Glucose (70-99(Fasting)) mg/dl POC Glucose 148 H 60 L* 61 L* (70-99) mg/dl Calcium (8.6-10.3) mg/dl Phosphorus (2.5-4.9) mg/dl Magnesium (1.7-2.4) mg/dl Hepatitis C Ab (EIA) (NON-REACTIVE) 06/17/23 06/15/23 Range/Units 15:03 06:28 Sodium (136-145) mmol/L Potassium (3.5-5.1) mmol/L Chloride (98-107) mmol/L Carbon Dioxide (21-32) mmol/L Anion Gap (3-11) BUN (6-23) mg/dl Creatinine (0.6-1.2) mg/dl Est Cr Clr Drug Dosing ml/min Est GFR ( Amer) ml/min Est GFR (Non-Af Amer) ml/min BUN/Creatinine Ratio (10-20) Glucose (70-99(Fasting)) mg/dl POC Glucose (70-99) mg/dl Calcium (8.6-10.3) mg/dl Phosphorus 2.0 L (2.5-4.9) mg/dl Magnesium (1.7-2.4) mg/dl Hepatitis C Ab (EIA) NON-REACTIVE (NON-REACTIVE) Medications Administered Current Inpatient Medications Promethazine HCl 6.25 mg/ (Sodium Chloride) 50.25 mls @ 201 mls/hr IV Q6H PRN PRN Reason: Nausea And Vomiting Stop: 07/15/23 04:27 Dextrose (D10w) 1,000 mls @ 0 mls/hr IV .Q0M PRN PRN Reason: protocol (see label comments) Stop: 07/17/23 10:01 Amino Acids 1,708 ml/ (Nutrition (Parenteral)) 1,708 mls @ 71.2 mls/hr IV .Q24H DIXIE; Protocol Stop: 06/18/23 15:59 Last Admin: 06/17/23 18:41 Dose: 71.2 mls/hr Miscellaneous Information (Tpn/Ppn Consult Pharmacy) 1 each N/A UD PRN PRN Reason: Consult Stop: 07/17/23 10:16 Morphine Sulfate (Morphine Sulfate 2 Mg/Ml Carp) 1 mg IV Q4H PRN PRN Reason: Pain Stop: 06/30/23 13:24 Last Admin: 06/16/23 13:42 Dose: 1 mg Ondansetron HCl (Ondansetron Inj 2 Mg/Ml 2 Ml Vial) 4 mg IV Q6H PRN PRN Reason: Nausea Stop: 07/14/23 17:10 Last Admin: 06/16/23 02:18 Dose: 4 mg
[2023-06-18 09:59] LABS: Anion Gap 6 (3-11); BUN Creatinine Ratio 47.5 (10-20); Blood Urea Nitrogen 19 mg/dl (6-23); Calcium 7.9 mg/dl (8.6-10.3); Carbon Dioxide 23 mmol/L (21-32); Chloride 106 mmol/L (98-107); Creatinine Clr Calc Pharmacy 111.3 ml/min; Est GFR (African American) 116.4 ml/min; Est GFR (Non-African American) 100.5 ml/min; Glucose 190 mg/dl (70-99(Fasting)); Potassium 3.4 mmol/L (3.5-5.1); Sodium 135 mmol/L (136-145)
[2023-06-18 10:22] LABS: Magnesium 2.2 mg/dl (1.7-2.4)
[2023-06-18 10:25] LABS: Phosphorus < 1.0 mg/dl (2.5-4.9)
[2023-06-18] MEDS ORDERED: POTASSIUM CHLORIDE / WTR 10 MEQ/100 ML PLCT IV SCH (10:30)
--- NOTE | 2023-06-18 10:33 | XRay Report ---
KUB HISTORY: Follow-up study in a patient with reported small bowel obstruction SBO COMPARISON: KUB 06/17/2023, CT 06/13/2023 FINDINGS: Contrast noted within the large bowel. Colonic diverticulosis. Distended air-filled loops o f small bowel measure up to 4.1 cm, previously 4.9 cm. Cholecystectomy. Cardiomegaly with pacer/AICD and layering pleural effusions. Colonic diverticulosis. Large hiatal hernia. No renal calculi. No ure teral calculi. No pneumoperitoneum or pneumatosis. Partially imaged left proximal femoral ORIF change s. IMPRESSION: 1. Contrast is again seen within the large bowel. 2. There is persistent small bowel dilation which may represent ongoing obstruction. Continued follow -up recommended. 3. Cholecystectomy. 4. Large hiatal hernia. ACT 112: Negative or not required by law. The above report was generated using voice recognition software. It may contain grammatical, syntax o r spelling errors. Electronically signed by: Ibrahima David M.D. 06/18/2023 10:30 AM
[2023-06-18] MEDS ORDERED: SODIUM CHLORIDE 0.9% IV ONE (11:00)
[2023-06-18] MEDS ORDERED: POTASSIUM PHOSPHATE IV ONE (11:00)
--- NOTE | 2023-06-18 15:30 | Pharmacy Report ---
Pharmacy PN Initial Consult - Date of Service June 18, 2023 - Scope Pharmacy has been consulted to manage parenteral nutrition orders and order appropriate labs. As part of the Nutrition Support Team guidelines, pharmacy will work in conjunction with dietary when determining the patients caloric needs. - Subjective The patient is a 77 year old F admitted on 06/15/23 14:15 for SBO. Patient is to receive parenteral nutrition for SBO and currently NPO Pertinent PMH: - Objective Height: 5 ft 1 in Weight: 78 kg Diet: NPO Vascular Access:: Peripheral Intake & Output (Last 24Hrs): Intake & Output 06/16/23 06/17/23 06/18/23 06/19/23 06:59 06:59 06:59 06:59 Intake Total 1057.5 / 1057.5 2655 / 2655 2445.750 / 2445.750 Output Total 1100 / 1100 500 / 500 725 / 725 100 / 100 Balance -42.5 / -42.5 2155 / 2155 1720.750 / 1720.750 -100 / -100 Weight 78 kg Laboratory Data (Last 24 Hrs):: 06/17/23 06/18/23 15:03 09:02 Sodium 135 L Potassium 3.4 L Chloride 106 Carbon Dioxide 23 BUN 19 Creatinine 0.40 L Glucose 190 H Calcium 7.9 L Phosphorus 2.0 L < 1.0 L* D Magnesium 2.2 Nutrition Assessment:: Please refer to the Notes section of the EMR for the 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 - Assessment Today is day 2 of PPN. Initial consult for PPN received yesterday. Patient's phos level was low at 1.4 mg/dl yesterday. Potassium phosphate 21 mm IV was given yesterday AM. Repeat level at 3 pm was 2.0 mmol. Sodium phosphate 15 mmol IV was given next and PPN was started later after sodium phos was given. However, this AM, phos level was less than 1.0 mg/dl. Spoke with Dr. Kemp and patient was ordered Potassium phosphate IV 36 mmol. New PPN bag will start after this is completed. Phos level ordered for this evening as well. Close monitoring required. PPN was not started at goal calories yesterday due to phos level being low. Continued with the same amount of calories again today. Will plan on increasing up to goal calories tomorrow if phos level improves. - Plan For day 1 and 2 of PN administration, the following was ordered: Macronutrients Amino acids 71 grams/day Dextrose 84 grams/day Lipids 30 grams/day Micronutrients Combined electrolytes [ ] mL - contains 35 mEq Na, 20 meq K, 4.5 mEq Ca, 5 mEq Mg, 35 mEq Cl, 29.5 mEq acetate per 20 mL Sodium phosphate 45 MMol Sodium chloride [] mEq Sodium acetate [] mEq Potassium phosphate [] mMol Potassium chloride 40 mEq Potassium acetate [] mEq Magnesium sulfate [] mEq Calcium gluconate 4.65 mEq Multivitamins 10 mL Trace Elements 1 mL Additional additives: Thiamine 100 mg Total volume 1737 mL to be infused over 24 hrs will provide 871 kcal/day Final osmolarity 764 mOsm/L (maximum for PPN is 900 mOsm/L) Labs to be ordered per PN order protocol Pharmacy will follow and adjust parenteral nutrition orders on a daily basis. Thank you.
[2023-06-18] MEDS ORDERED: PERIPHERAL TPN IV SCH (16:00)
[2023-06-18] MEDS ORDERED: CLINOLIPID 20% IV FAT EMULSION 150 ML IV SCH (16:00)
[2023-06-18] MEDS ORDERED: [UNRECOGNIZED DRUG - OTHER] IV SCH (16:00)
--- NOTE | 2023-06-18 16:41 | Surgery Progress Note ---
Date of Service June 18, 2023 Assessment & Plan (1) SBO (small bowel obstruction): Plan: We will remove her NG tube and start her on sips and chips as she has had some return of bowel function We will go slow with her diet as on her KUB she still had some distended loops of small bowel (2) Hiatal hernia: Admission and Anticipated Discharge Date Admission Date: June 15, 2023 Subjective Patient seen and examined. Denies abdominal pain at this point. States she had 2 bowel movements. She is passing flatus. Review of Systems Constitutional: no fever and no chills Physical Exam Constitutional: WD/WN, vitals as above Gastrointestinal (Abdomen): Inspection/Auscultation: abdomen normal to inspection; abdomen not distended Percussion/Palpation: abdomen soft; abdomen nontender and no guarding Results & Data Vital Signs (Past 12 Hours) Vital Signs Temp Pulse Resp BP Pulse Ox O2 Del Method 06/18/23 15:11 36.7 C 82 16 146/90 H 96 Room Air 06/18/23 08:18 36.6 C 93 H 16 128/85 94 Room Air PG Care Time/CCT Total # of Minutes Spent Total Time Spent with Patient: Total time spent is greater than 50% in coordination of care (as documented) at patient's floor/unit and/or counseling patient: Coding Level of Care Code 10148 SUB INP/OBS CARE 11/24MIN Diagnoses SBO (small bowel obstruction) K56.609 Hiatal hernia K44.9
[2023-06-18] MEDS ORDERED: STOP CLINOLIPID SCH ×2 (20:00→22:30)
[2023-06-19 07:03] LABS: BUN Creatinine Ratio 39.5 (10-20); Calcium 7.5 mg/dl (8.6-10.3); Creatinine Clr Calc Pharmacy 118.1 ml/min; Est GFR (African American) 118.4 ml/min; Est GFR (Non-African American) 102.2 ml/min; Phosphorus 1.7 mg/dl (2.5-4.9); Potassium 3.6 mmol/L (3.5-5.1)
--- NOTE | 2023-06-19 08:11 | Hospitalist Progress Note ---
Date of Service June 19, 2023 Assessment & Plan (1) SBO (small bowel obstruction): Plan: This is a 77yo F with a PMH of HFrEF, history of non-ischemic cardiomyopathy with ICD, sinus bradycardia, HTN, dyslipidemia, hypothyroidism, [place] and other medical problems listed below who presents with abdominal pain and outpatient CT findings of small bowel obstruction. N/V x 4 days, LLQ abdominal pain Outpatient CT abdomen findings with impression of high grade obstruction, diverticulosis without diverticulitis Has had 2 bowel movements earlier on day of admission KUB with findings are compatible with small bowel obstruction General surgery consulted Continue gentle IV fluids Overnight w/ nausea - NGT was placed Repeat KUB in AM 06/16 Pt continues to have NGT and fairly high output + passing flatus and had small BM Surgery following closely, plan to continue conservative management repeat KUB encouraged ambulation + increased abdominal cramps today replacing electrolytes, goal K >4 06/17 Pt feels improved Denies abd. pain or cramping NG output decreased Pt ambulated today Plan to start PPN today 06/18 NGT output much decreased Had BM today Feeling better overall KUB ordered 06/19 NGT removed yesterday PM Tolerating clear liquid diet Had BM today Overall feeling well (2) Hiatal hernia: Plan: Will need evaluation of large hiatal hernia as an outpatient at tertiary facility, per gen surg (3) Hypertension: Plan: Chronic, stable. Resume home amlodipine, Toprol once SBO resolved Holding spironolactone for now given dehydrated appearance (4) Sinus bradycardia: (5) NICM (nonischemic cardiomyopathy): (6) Presence of combination internal cardiac defibrillator (ICD) and pacemaker: Plan: Follows with [facility]. 2D echo from May 2022 reveals slight improvement in LVEF ~45% compared to 39%. Mild concentric LVH noted Resume meds when able as above (7) CAD (coronary artery disease): Plan: Resume aspirin, atorvastatin when able (8) Hyperlipidemia: Plan: Chronic, stable. Resume when able (9) Mood disorder: Plan: Resume SSRI when able DVT Ppx: SCDS for now Code status: FULL PCP: Dr. Villavicencio Dispo: med/surg Admission and Anticipated Discharge Date Admission Date: June 15, 2023 Subjective Pt seen in follow up of SBO NGT removed yesterday PM She also had a BM today Overall she feels better - tolerating clear liquid diet No abd. pain or cramping or nausea today Surgery following closely Review of Systems Review of Systems: All systems reviewed & are unremarkable except as noted in Subjective Physical Exam Physical Exam: General Appearance :WD/WN, in NAD H ead: normocephali c, atraumatic Eyes :normal inspecti on, PERRL, conjunc tivae normal, anic teric sclerae ENT: external ear and nose normal, orop harynx normal Neck : normal visual inspection Respira tory:normal respi ratory effort, macho gs clear to auscul tation, no wheeze, rales, rhonchi. No accessory muscl e use Cardiovascul ar: regular rate, rhythm, no murmur , normal periphera l pulses, no BLE e jessa. Vessels: no JVD Chest: normal inspection of amira st Abdomen/GI:no LLQ TTP (resolved) , + some distentio n, + bowel sounds Extremities/Muscul oskeletal:moves e xtremities Neurolo gic: PERRL, EOMI, no face palsy, no dysarthria,moves all extremities Ps ychiatric:A+Ox3, euthymic affect S kin: no rashes, n ormal color, warm/ dry Results & Data Results & Data Vital Signs (Past 12 Hours) Vital Signs Temp Pulse Resp BP Pulse Ox O2 Del Method 06/19/23 07:13 37.1 C 80 18 134/85 95 Room Air 06/18/23 21:50 36.9 C 88 18 137/88 96 Room Air Laboratory Results 06/19/23 06/19/23 06/18/23 Range/Units 06:04 05:56 21:40 Sodium 136 (136-145) mmol/L Potassium 3.6 (3.5-5.1) mmol/L Chloride 108 H (98-107) mmol/L Carbon Dioxide 24 (21-32) mmol/L Anion Gap 4 (3-11) BUN 15 (6-23) mg/dl Creatinine 0.38 L (0.6-1.2) mg/dl Est Cr Clr Drug Dosing 118.1 ml/min Est GFR ( Amer) 118.4 ml/min Est GFR (Non-Af Amer) 102.2 ml/min BUN/Creatinine Ratio 39.5 H (10-20) Glucose 132 H (70-99(Fasting)) mg/dl POC Glucose 119 H 107 H (70-99) mg/dl Calcium 7.5 L (8.6-10.3) mg/dl Phosphorus 1.7 L (2.5-4.9) mg/dl Magnesium 2.0 (1.7-2.4) mg/dl 06/18/23 06/18/23 06/18/23 Range/Units 18:24 18:13 11:37 Sodium (136-145) mmol/L Potassium (3.5-5.1) mmol/L Chloride (98-107) mmol/L Carbon Dioxide (21-32) mmol/L Anion Gap (3-11) BUN (6-23) mg/dl Creatinine (0.6-1.2) mg/dl Est Cr Clr Drug Dosing ml/min Est GFR ( Amer) ml/min Est GFR (Non-Af Amer) ml/min BUN/Creatinine Ratio (10-20) Glucose (70-99(Fasting)) mg/dl POC Glucose 91 149 H (70-99) mg/dl Calcium (8.6-10.3) mg/dl Phosphorus 2.6 D (2.5-4.9) mg/dl Magnesium (1.7-2.4) mg/dl 06/18/23 Range/Units 09:02 Sodium 135 L (136-145) mmol/L Potassium 3.4 L (3.5-5.1) mmol/L Chloride 106 (98-107) mmol/L Carbon Dioxide 23 (21-32) mmol/L Anion Gap 6 (3-11) BUN 19 (6-23) mg/dl Creatinine 0.40 L (0.6-1.2) mg/dl Est Cr Clr Drug Dosing 111.3 ml/min Est GFR ( Amer) 116.4 ml/min Est GFR (Non-Af Amer) 100.5 ml/min BUN/Creatinine Ratio 47.5 H (10-20) Glucose 190 H (70-99(Fasting)) mg/dl POC Glucose (70-99) mg/dl Calcium 7.9 L (8.6-10.3) mg/dl Phosphorus < 1.0 L* D (2.5-4.9) mg/dl Magnesium 2.2 (1.7-2.4) mg/dl Medications Administered Current Inpatient Medications Promethazine HCl 6.25 mg/ (Sodium Chloride) 50.25 mls @ 201 mls/hr IV Q6H PRN PRN Reason: Nausea And Vomiting Stop: 07/15/23 04:27 Dextrose (D10w) 1,000 mls @ 0 mls/hr IV .Q0M PRN PRN Reason: protocol (see label comments) Stop: 07/17/23 10:01 Amino Acids 1,737 ml/ (Nutrition (Parenteral)) 1,737 mls @ 72.4 mls/hr IV .Q24H DIXIE; Protocol Stop: 06/19/23 15:59 Last Admin: 06/18/23 18:28 Dose: 72.4 mls/hr Miscellaneous (Stop Clinolipid) 1 each N/A TODAY@2230 DIXIE Stop: 07/18/23 22:29 Last Admin: 06/18/23 22:50 Dose: 1 each Miscellaneous Information (Tpn/Ppn Consult Pharmacy) 1 each N/A UD PRN PRN Reason: Consult Stop: 07/17/23 10:16 Morphine Sulfate (Morphine Sulfate 2 Mg/Ml Carp) 1 mg IV Q4H PRN PRN Reason: Pain Stop: 06/30/23 13:24 Last Admin: 06/16/23 13:42 Dose: 1 mg Ondansetron HCl (Ondansetron Inj 2 Mg/Ml 2 Ml Vial) 4 mg IV Q6H PRN PRN Reason: Nausea Stop: 07/14/23 17:10 Last Admin: 06/16/23 02:18 Dose: 4 mg
[2023-06-19] MEDS ORDERED: POTASSIUM PHOS 3 MMOL/1 ML INFUSION IV STA (08:12)
[2023-06-19] MEDS ORDERED: POTASSIUM PHOSPHATE 15 MMOL in SODIUM CHLORIDE 0.9% 250 ML IV ONE (09:00)
--- NOTE | 2023-06-19 09:46 | Surgery Progress Note ---
Date of Service June 19, 2023 Assessment & Plan (1) SBO (small bowel obstruction): Plan: pt here with sbo ngt d/c'd yesterday and she is tolerating this well no n/v/pain. + bms/flatus will advance to clears this AM, if tolerates maybe fulls for dinner will follow... possible d/c yaneth pending progress Admission and Anticipated Discharge Date Admission Date: June 15, 2023 Supervising Physician Co-Signing Physician Notes I personally saw and evaluated the patient with Katherin Babin PA-C and agree with the assessment and plan. 77-year-old female with what seems to be a resolving small bowel obstruction She is tolerating her sips, we will give her clear liquids and can advance to full's if she continues to do well She has no abdominal pain and has been having bowel movements We will continue to follow Subjective Patient reports feeling well. denies abdominal pain/n/v. She is passing flatus and having BMs Physical Exam Physical Exam: awake/alert, no distress Respiratory: normal respiratory effort Gastrointestinal (Abdomen): Inspection/Auscultation: abdomen not distended Percussion/Palpation: abdomen soft; abdomen nontender Results & Data Vital Signs (Past 12 Hours) Vital Signs Temp Pulse Resp BP Pulse Ox O2 Del Method 06/19/23 07:13 37.1 C 80 18 134/85 95 Room Air 06/18/23 21:50 36.9 C 88 18 137/88 96 Room Air PG Care Time/CCT Total # of Minutes Spent Total Time Spent with Patient: Total time spent is greater than 50% in coordination of care (as documented) at patient's floor/unit and/or counseling patient: Coding Level of Care Code 76735 SUB INP/OBS CARE 25MIN Diagnoses SBO (small bowel obstruction) K56.609
[2023-06-19] MEDS ORDERED: Nursing to Pharmacy Communication SCH (15:15)
[2023-06-19] MEDS ORDERED: CLINOLIPID 20% IV FAT EMULSION 250 ML IV SCH (16:00)
[2023-06-19] MEDS ORDERED: [UNRECOGNIZED DRUG - OTHER] IV SCH (16:00)
[2023-06-19] MEDS ORDERED: PERIPHERAL TPN IV SCH (16:00)
[2023-06-19] MEDS ORDERED: ZOLPIDEM TARTRATE 5 MG TAB PO STA (21:28)
[2023-06-19] MEDS ORDERED: STOP CLINOLIPID SCH (22:00)
[2023-06-20 06:52] LABS: BUN Creatinine Ratio 27.1 (10-20); Calcium 8.2 mg/dl (8.6-10.3); Creatinine Clr Calc Pharmacy 93.5 ml/min; Est GFR (African American) 109.7 ml/min; Est GFR (Non-African American) 94.6 ml/min; Magnesium 2.1 mg/dl (1.7-2.4); Phosphorus 2.5 mg/dl (2.5-4.9); Potassium 3.7 mmol/L (3.5-5.1)
--- NOTE | 2023-06-20 07:42 | Surgery Progress Note ---
Date of Service June 20, 2023 Assessment & Plan (1) SBO (small bowel obstruction): Plan: Patient here with resolving SBO Denies any abdominal pain/n/v. She is passing flatus + BM x4 yesterday Tolerated clears and full liquid diet thus far Will advance to low fiber, if tolerates is stable for discharge from our standpoint No need to f/u with us in the office Admission and Anticipated Discharge Date Admission Date: June 15, 2023 Supervising Physician Co-Signing Physician Notes Patient seen and examined, labs reviewed, events over the weekend reviewed. Admitted with SBO, now resolved. She is tolerating a low fiber diet and having multiple loose bowel movements. Abdomen is soft, nontender, nondistended. Discharged home, recommend low fiber diet for 4 to 6 weeks. No need to follow- up in the general surgery clinic Subjective Patient reports feeling well. Tolerating liquid diet. No pain, nausea/vomiting. Continues to pass flatus and BMs Physical Exam Physical Exam: awake/alert, sitting in chair Respiratory: normal respiratory effort Gastrointestinal (Abdomen): Percussion/Palpation: abdomen soft; abdomen nontender Results & Data Vital Signs (Past 12 Hours) Vital Signs Temp Pulse Resp BP Pulse Ox O2 Del Method 06/19/23 23:18 37.0 C 86 18 138/85 96 Room Air 06/19/23 21:50 Room Air PG Care Time/CCT Total # of Minutes Spent Total Time Spent with Patient: Total time spent is greater than 50% in coordination of care (as documented) at patient's floor/unit and/or counseling patient: Coding Level of Care Code 95817 SUB INP/OBS CARE 11/24MIN Diagnoses SBO (small bowel obstruction) K56.609
--- NOTE | 2023-06-20 09:27 | Hospitalist Progress Note ---
Date of Service June 20, 2023 Assessment & Plan (1) SBO (small bowel obstruction): Plan: This is a 77yo F with a PMH of HFrEF, history of non-ischemic cardiomyopathy with ICD, sinus bradycardia, HTN, dyslipidemia, hypothyroidism, [place] and other medical problems listed below who presents with abdominal pain and outpatient CT findings of small bowel obstruction. N/V x 4 days, LLQ abdominal pain Outpatient CT abdomen findings with impression of high grade obstruction, diverticulosis without diverticulitis Has had 2 bowel movements earlier on day of admission KUB with findings are compatible with small bowel obstruction General surgery consulted Continue gentle IV fluids Overnight w/ nausea - NGT was placed Repeat KUB in AM 06/16 Pt continues to have NGT and fairly high output + passing flatus and had small BM Surgery following closely, plan to continue conservative management repeat KUB encouraged ambulation + increased abdominal cramps today replacing electrolytes, goal K >4 06/17 Pt feels improved Denies abd. pain or cramping NG output decreased Pt ambulated today Plan to start PPN today 06/18 NGT output much decreased Had BM today Feeling better overall KUB ordered 06/19 NGT removed yesterday PM Tolerating clear liquid diet Had BM today Overall feeling well 06/20 Pt is tolerating diet and doing well overall. No abd. pain. She would like to go home. Discussed w/ surgery - will dc on low fiber diet (2) Hiatal hernia: Plan: Will need evaluation of large hiatal hernia as an outpatient at tertiary facility, per gen surg (3) Hypertension: Plan: Chronic, stable. Resume home amlodipine, Toprol once SBO resolved Holding spironolactone for now given dehydrated appearance (4) Sinus bradycardia: (5) NICM (nonischemic cardiomyopathy): (6) Presence of combination internal cardiac defibrillator (ICD) and pacemaker: Plan: Follows with [facility]. 2D echo from May 2022 reveals slight improvement in LVEF ~45% compared to 39%. Mild concentric LVH noted Resume meds when able as above (7) CAD (coronary artery disease): Plan: Resume aspirin, atorvastatin when able (8) Hyperlipidemia: Plan: Chronic, stable. Resume when able (9) Mood disorder: Plan: Resume SSRI when able DVT Ppx: SCDS for now Code status: FULL PCP: Dr. Villavicencio Dispo: med/surg Admission and Anticipated Discharge Date Admission Date: June 15, 2023 Subjective Pt seen in follow up of SBO feeling much improved, tolerating diet Having BM No abd. pain or cramping or nausea Surgery following closely - ok to DC on low fiber diet Review of Systems Review of Systems: All systems reviewed & are unremarkable except as noted in Subjective Physical Exam Physical Exam: General Appearance :WD/WN, in NAD H ead: normocephali c, atraumatic Eyes :normal inspecti on, PERRL, conjunc tivae normal, anic teric sclerae ENT: external ear and nose normal, orop harynx normal Neck : normal visual inspection Respira tory:normal respi ratory effort, macho gs clear to auscul tation, no wheeze, rales, rhonchi. No accessory muscl e use Cardiovascul ar: regular rate, rhythm, no murmur , normal periphera l pulses, no BLE e jessa. Vessels: no JVD Chest: normal inspection of amira st Abdomen/GI:no LLQ TTP (resolved) , + some distentio n, + bowel sounds Extremities/Muscul oskeletal:moves e xtremities Neurolo gic: PERRL, EOMI, no face palsy, no dysarthria,moves all extremities Ps ychiatric:A+Ox3, euthymic affect S kin: no rashes, n ormal color, warm/ dry Results & Data Results & Data Vital Signs (Past 12 Hours) Vital Signs Temp Pulse Resp BP Pulse Ox O2 Del Method 06/20/23 08:03 36.6 C 85 17 151/91 H 96 Room Air 06/19/23 23:18 37.0 C 86 18 138/85 96 Room Air 06/19/23 21:50 Room Air Laboratory Results 06/20/23 06/20/23 06/20/23 Range/Units 06:23 05:45 00:38 Sodium 138 (136-145) mmol/L Potassium 3.7 (3.5-5.1) mmol/L Chloride 105 (98-107) mmol/L Carbon Dioxide 28 (21-32) mmol/L Anion Gap 5 (3-11) BUN 13 (6-23) mg/dl Creatinine 0.48 L (0.6-1.2) mg/dl Est Cr Clr Drug Dosing 93.5 ml/min Est GFR ( Amer) 109.7 ml/min Est GFR (Non-Af Amer) 94.6 ml/min BUN/Creatinine Ratio 27.1 H (10-20) Glucose 115 H (70-99(Fasting)) mg/dl POC Glucose 122 H 119 H (70-99) mg/dl Calcium 8.2 L (8.6-10.3) mg/dl Phosphorus 2.5 (2.5-4.9) mg/dl Magnesium 2.1 (1.7-2.4) mg/dl 06/19/23 06/19/23 Range/Units 18:36 11:52 Sodium (136-145) mmol/L Potassium (3.5-5.1) mmol/L Chloride (98-107) mmol/L Carbon Dioxide (21-32) mmol/L Anion Gap (3-11) BUN (6-23) mg/dl Creatinine (0.6-1.2) mg/dl Est Cr Clr Drug Dosing ml/min Est GFR ( Amer) ml/min Est GFR (Non-Af Amer) ml/min BUN/Creatinine Ratio (10-20) Glucose (70-99(Fasting)) mg/dl POC Glucose 116 H 133 H (70-99) mg/dl Calcium (8.6-10.3) mg/dl Phosphorus (2.5-4.9) mg/dl Magnesium (1.7-2.4) mg/dl Medications Administered Current Inpatient Medications Promethazine HCl 6.25 mg/ (Sodium Chloride) 50.25 mls @ 201 mls/hr IV Q6H PRN PRN Reason: Nausea And Vomiting Stop: 07/15/23 04:27 Dextrose (D10w) 1,000 mls @ 0 mls/hr IV .Q0M PRN PRN Reason: protocol (see label comments) Stop: 06/20/23 15:59 Amino Acids 2,069.2 ml/ (Nutrition (Parenteral)) 2,069.2 mls @ 86.2 mls/hr IV .Q24H [facility]; Protocol Stop: 06/20/23 15:59 Last Admin: 06/19/23 15:54 Dose: 86.2 mls/hr Miscellaneous Information (Tpn/Ppn Consult Pharmacy) 1 each N/A UD PRN PRN Reason: Consult Stop: 06/20/23 15:59 Morphine Sulfate (Morphine Sulfate 2 Mg/Ml Carp) 1 mg IV Q4H PRN PRN Reason: Pain Stop: 06/30/23 13:24 Last Admin: 06/16/23 13:42 Dose: 1 mg Ondansetron HCl (Ondansetron Inj 2 Mg/Ml 2 Ml Vial) 4 mg IV Q6H PRN PRN Reason: Nausea Stop: 07/14/23 17:10 Last Admin: 06/16/23 02:18 Dose: 4 mg
--- NOTE | 2023-06-20 15:06 | Discharge Summary ---
Date of Service June 20, 2023 Admission HPI Per Admitting Provider This is a 77yo F with a PMH of HFrEF, history of non-ischemic cardiomyopathy with ICD, sinus bradycardia, restrictive lung disease, HTN, dyslipidemia, hypothyroidism, [place] and other medical problems listed below who presents with abdominal pain. Was seen in outpatient setting yesterday with LLQ abdominal pain, constipation and subjective fevers. Underwent CT of the abdomen, which resulted this morning showing high grade bowel obstruction and patient was directed to [facility] ED for further evaluation. Endorses nausea and vomiting over the last 4 days at home with poor appetite. Was able to tolerate some liquids but very limited food intake. No blood in bowel movements noted. Has history of bowel obstruction in the past 2/2 inguinal hernia that has since been repaired. Patient is feeling better currently, without nausea and vomiting after Zofran. Had 2 bowel movements today. LLQ is cramping and constant with some radiation to RLQ. No F/C, lightheadedness, headache, CP, SOB, dysuria. Admission Exam Per Admitting Provider General Appearance:WD/WN, vitals as above, NAD, sitting up in bed, pleasant, conversing easily Head: normocephalic, atraumatic Eyes:normal inspection, PERRL, conjunctivae normal, anicteric sclerae ENT: external ear and nose normal, oropharynx normal Neck: normal visual inspection, trachea midline, no thyromegaly Respiratory:normal respiratory effort, lungs clear to auscultation, no wheeze, rales, rhonchi. No accessory muscle use Cardiovascular: regular rate, rhythm, no murmur, normal peripheral pulses, no BLE edema. Vessels: no JVD Chest: normal inspection of chest Abdomen/GI: LLQ TTP with some distention, hypoactive bowel sounds, no hepatosplenomegaly Extremities/Musculoskeletal: no cyanosis or clubbing, extremities motor strength 5/5 Neurologic: PERRL, EOMI, accommodation nl, no face palsy, no dysarthria, CN's II-XI intact bilaterally and moves all extremities Psychiatric:A+Ox3, euthymic affect Skin: no rashes, normal color, warm/dry Principal Diagnosis Small bowel obstruction Discharge Exam General Appearance:WD/WN, in NAD Head: normocephalic, atraumatic Eyes:normal inspection, PERRL, conjunctivae normal, anicteric sclerae ENT: external ear and nose normal, oropharynx normal Neck: normal visual inspection Respiratory:normal respiratory effort, lungs clear to auscultation, no wheeze, rales, rhonchi. No accessory muscle use Cardiovascular: regular rate, rhythm, no murmur, normal peripheral pulses, no BLE edema. Vessels: no JVD Chest: normal inspection of chest Abdomen/GI:no LLQ TTP (resolved), + some distention, + bowel sounds Extremities/Musculoskeletal:moves extremities Neurologic: PERRL, EOMI, no face palsy, no dysarthria,moves all extremities Psychiatric:A+Ox3, euthymic affect Skin: no rashes, normal color, warm/dry Discharge Data Allergies Allergy/AdvReac Type Severity Reaction Status Date / Time Penicillins Allergy Mild pain Verified 08/22/20 12:27 Consultations 06/14/23 14:43 Consult General Surgery Routine ED Decision to Admit Stat Hospital Course (1) SBO (small bowel obstruction): This is a 77yo F with a PMH of HFrEF, history of non-ischemic cardiomyopathy with ICD, sinus bradycardia, HTN, dyslipidemia, hypothyroidism, [place] and other medical problems listed below who presents with abdominal pain and outpatient CT findings of small bowel obstruction. N/V x 4 days, LLQ abdominal pain Outpatient CT abdomen findings with impression of high grade obstruction, diverticulosis without diverticulitis Has had 2 bowel movements earlier on day of admission KUB with findings are compatible with small bowel obstruction General surgery consulted Continue gentle IV fluids Overnight w/ nausea - NGT was placed Repeat KUB in AM 06/16 Pt continues to have NGT and fairly high output + passing flatus and had small BM Surgery following closely, plan to continue conservative management repeat KUB encouraged ambulation + increased abdominal cramps today replacing electrolytes, goal K >4 06/17 Pt feels improved Denies abd. pain or cramping NG output decreased Pt ambulated today Plan to start PPN today 06/18 NGT output much decreased Had BM today Feeling better overall KUB ordered 06/19 NGT removed yesterday PM Tolerating clear liquid diet Had BM today Overall feeling well 06/20 Pt is tolerating diet and doing well overall. No abd. pain. She would like to go home. Discussed w/ surgery - will dc on low fiber diet (2) Hiatal hernia: Will need evaluation of large hiatal hernia as an outpatient at tertiary facility, per gen surg (3) Hypertension: Chronic, stable. Resume Toprol now Hold amlodipine, spironolactone for now. Eval w/ pcp if/when to resume Monitor BP as outpt (4) Sinus bradycardia: (5) NICM (nonischemic cardiomyopathy): (6) Presence of combination internal cardiac defibrillator (ICD) and pacemaker: Follows with [facility]. 2D echo from May 2022 reveals slight improvement in LVEF ~45% compared to 39%. Mild concentric LVH noted Resume meds when able as above (7) CAD (coronary artery disease): Resume aspirin, atorvastatin (8) Hyperlipidemia: Chronic, stable. Resume (9) Mood disorder: Resume SSRI Total Time Total Time Spent Total Time Spent (In Minutes): 40 Discharge Plan Discharge Items Patient Disposition: Home - Self-Care Reason For Visit: SBO Discharge Diagnosis: Small bowel obstruction Activity: Per Instructions section Non-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: Primary Care Provider Call non-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 if: you have any medication questions and your symptoms worsen Follow-up/Referrals: Jose Villavicencio MD [Primary Care Provider] - (Date & Time 06/27/2023 2:00 PM Provider Patricio Hawkins MD [facility] ) Diet: Low Fiber Addtl Attending Provider Instructions: Follow up with your primary care doctor within 1 week. The appointment was scheduled for you for 06/27/2023. Continue with low fiber diet for several weeks and then advance slowly as tolerated. You can restart taking your metoprolol. Do not take lisinopril and amlodipine until you see your primary care doctor. If you can, check your blood pressure at home and write down your numbers. Discuss your numbers with your primary care doctor at you next appointment. Pending Studies at Discharge: No Stand-Alone Forms: My Novel, Smoking Cessation Medications and DC Order Prescriptions: Continued cyanocobalamin (vitamin B-12) [Vitamin B-12] 1,000 mcg Tablet 1,000 mcg PO QAM aspirin 81 mg Tablet,Delayed Release (Dr/Ec) 81 mg PO QAM spironolactone 25 mg Tablet 12.5 mg PO MOWEFR@0900 Rx Instructions: m,w,f calcium polycarbophil [Fiber (calcium polycarbophil)] 625 mg Tablet 1,250 mg PO QDD metoprolol succinate 25 mg Tablet Extended Release 24 Hr 25 mg PO BID lisinopril 40 mg Tablet 40 mg PO HS multivitamin Capsule 1 cap PO QAM cholecalciferol (vitamin D3) [Vitamin D3] 25 mcg (1,000 unit) Capsule 75 mcg PO QAM omeprazole 20 mg Tablet,Delayed Release (Dr/Ec) 20 mg PO QAM levothyroxine 50 mcg Capsule 50 mcg PO QAM [id number] [krill oil] 786-14-73-50 mg Capsule 1 cap PO HS Prolia 60 mg/mL Syringe 60 mg SUBCUT DIRECTED amlodipine 2.5 mg tablet 2.5 mg PO DAILY Qty: 30 6RF citalopram 10 mg tablet 10 mg PO QAM rosuvastatin 10 mg tablet 10 mg PO QAM solifenacin 10 mg tablet 10 mg PO DAILY Iron with C 200 mg (66 mg iron)-125 mg Tablet 1 tab PO HS Discharge Orders: Discharge Order (Routine); Ordered 06/20/23 Ordered By: Ephraim Kemp Admission Data Admit Date/Time: 06/15/23 14:15 Attending Provider: Ephraim Kemp Admit Provider: Paulette Dawson Primary Care Provider: Jose Villavicencio Other Providers: Paulette Dawson ; Gurpreet Null
== END 2023-06-20 16:09 | disposition home or self-care (01) | DRG 389 ==
LOC: 3E 11:15 → ED 11:15 → SUATTDRO 15:39 → 3E 16:42

== ENCOUNTER 2024-02-17 09:03 | Inpatient (IN) ==
--- NOTE | 2024-01-18 12:13 | PAT Medication Instructions ---
Medication Instructions Date of Service January 18, 2024 Home Medications aspirin 81 mg tablet,delayed release 81 mg PO QAM calcium polycarbophil 625 mg tablet (Fiber (calcium polycarbophil)) 1,250 mg PO QDD cholecalciferol (vitamin D3) 25 mcg (1,000 unit) capsule (Vitamin D3) 75 mcg PO QAM cyanocobalamin (vitamin B-12) 1,000 mcg tablet (Vitamin B-12) 1,000 mcg PO QAM krill [id number] 300 mg-90 mg-24 mg-50 mg capsule (krill oil) 1 cap PO HS levothyroxine 50 mcg capsule 50 mcg PO QAM lisinopril 40 mg tablet 40 mg PO HS metoprolol succinate 25 mg tablet,extended release 24 hr 25 mg PO BID multivitamin 1 cap PO QAM omeprazole 20 mg tablet,delayed release 20 mg PO QAM spironolactone 25 mg tablet 12.5 mg PO MOWEFR@0900 denosumab 60 mg/mL subcutaneous syringe (Prolia) 60 mg subcut DIRECTED citalopram 10 mg tablet 10 mg PO QAM rosuvastatin 10 mg tablet 10 mg PO QAM solifenacin 10 mg tablet 10 mg PO HS amlodipine 2.5 mg tablet 2.5 mg PO QAM Continue as directed denosumab 60 mg/mL subcutaneous syringe (Prolia) 60 mg subcut DIRECTED STOP taking 2 weeks before surgery krill [id number] 300 mg-90 mg-24 mg-50 mg capsule (krill oil) 1 cap PO HS DO NOT take the morning of surgery cholecalciferol (vitamin D3) 25 mcg (1,000 unit) capsule (Vitamin D3) 75 mcg PO QAM cyanocobalamin (vitamin B-12) 1,000 mcg tablet (Vitamin B-12) 1,000 mcg PO QAM multivitamin 1 cap PO QAM spironolactone 25 mg tablet 12.5 mg PO MOWEFR@0900 Take morning of surgery With a small sip of water, OTHERWISE NOTHING TO EAT OR DRINK AFTER MIDNIGHT: aspirin 81 mg tablet,delayed release 81 mg PO QAM (unless surgeon directed otherwise) levothyroxine 50 mcg capsule 50 mcg PO QAM metoprolol succinate 25 mg tablet,extended release 24 hr 25 mg PO BID omeprazole 20 mg tablet,delayed release 20 mg PO QAM citalopram 10 mg tablet 10 mg PO QAM rosuvastatin 10 mg tablet 10 mg PO QAM amlodipine 2.5 mg tablet 2.5 mg PO QAM Take evening before surgery calcium polycarbophil 625 mg tablet (Fiber (calcium polycarbophil)) 1,250 mg PO QDD lisinopril 40 mg tablet 40 mg PO HS metoprolol succinate 25 mg tablet,extended release 24 hr 25 mg PO BID solifenacin 10 mg tablet 10 mg PO HS Other Notes If you have any questions please call us at [phone] or [phone] or [phone] or [phone]
--- NOTE | 2024-01-25 09:18 | Anesthesiology Consultation ---
Date of Service January 25, 2024 Assessment & Plan (1) Encounter for pre-operative examination: - awaiting [facility] cardiology clearance. Optimization form to be faxed. - Case discussed with Dr. Reza who advised patient will need cardiology clearance prior to surgery. Patient made aware, she verbalized understanding and denied questions or concerns. Surgeon's office made aware. - Medtronic ICD. - pulmonology office visit [facility] 12/28/23: "...Awaiting orthopedic evaluation for right knee DJD, TKR evaluation. Current exercise distance 2 blocks, 1 flight of stairs, denies nocturnal dyspnea. Denies cough, wheezing, hemoptysis or high-grade fever. Compliant with cardiac recommendations...reactive airway disease with background history of congestive heart failure and cardiomyopathy. Patient will be followed up in 1 year..." - cardiology office visit [facility] 09/13/23: "...nonischemic cardiomyopathy; VT; HTN; Mild non obstructive CAD...upcoming paraesophageal hernia repair. No date has been set...feeling well today. Denies acute cardiac complaints. Recent echo with stable findings, mildly reduced LVEF at 45%. Recent ICD interrogation without arrhythmias...recent echo with stable findings, mildly reduced LVEF at 45%...Return in about 6 months..." - Outpatient joint assessment: Patient is currently scheduled for inpatient pathway. If re-evaluated and patient/surgeon requests outpatient pathway, patient is not recommended candidate for outpatient joint program from anesthesia standpoint. Chart Review Chart Review: Pending: Refer to Additional Notes / Consult section and Patient seen in Pre Admission Testing Teaching & Discussion Pre-Anesthesia Teaching/Discussion Notes: Instructed NPO after midnight before surgery, except medications with 15 cc of water. Medication instructions provided according to the PAT guidelines. History Surgery Operation Date: 02/17/24 08:50 Proposed Procedures p Right Total Knee Arthroplasty - Iain Fernando MD Height/Weight Height: 5 ft 1 in Weight: 79.4 kg Allergies Allergy/AdvReac Type Severity Reaction Status Date / Time Penicillins Allergy Mild pain Verified 01/17/24 14:38 Medications Home Medications Medication Instructions Recorded Confirmed Last Taken aspirin 81 mg tablet,delayed 81 mg PO QAM 05/19/20 01/17/24 08/21/20 release calcium polycarbophil 625 mg 1,250 mg PO QDD 05/19/20 01/17/2420 tablet (Fiber (calcium polycarbophil)) cholecalciferol (vitamin D3) 25 75 mcg PO QAM 05/19/20 01/17/24 08/22/20 mcg (1,000 unit) capsule (Vitamin D3) cyanocobalamin (vitamin B-12) 1,000 mcg PO QAM 05/19/20 01/17/24 08/22/20 1,000 mcg tablet (Vitamin B-12) krill 1 cap PO 05/19/20 01/17/24 08/21/20 [id number]-hroyikukxbnwt 300 mg-90 mg-24 mg-50 mg capsule (krill oil) levothyroxine 50 mcg capsule 50 mcg PO QA 05/19/20 01/17/24 08/22/20 lisinopril 40 mg tablet 40 mg PO 05/19/20 01/17/24 08/21/20 metoprolol succinate 25 mg 25 mg PO BID 05/19/20 01/17/24 08/21/20 tablet,extended release 24 hr multivitamin 1 cap PO QA 05/19/20 01/17/24 08/22/20 omeprazole 20 mg tablet,delayed 20 mg PO QA 05/19/20 01/17/24 08/22/20 release spironolactone 25 mg tablet 12.5 mg PO MOWEFR@0900 05/19/20 01/17/24 08/20/20 denosumab 60 mg/mL subcutaneous 60 mg subcut DIRECTED 06/18/20 01/17/24 Unknown syringe (Prolia) citalopram 10 mg tablet 10 mg PO QAM 06/14/23 01/17/24 Unknown rosuvastatin 10 mg tablet 10 mg PO QAM 06/14/23 01/17/24 Unknown solifenacin 10 mg tablet 10 mg PO HS 06/14/23 01/17/24 Unknown amlodipine 2.5 mg tablet 2.5 mg PO QAM 01/17/24 01/17/24 Unknown Past Medical History Medical History (Updated 01/25/24 @ 09:44 by Emely Zhou PA-C) CAD (coronary artery disease) nonobstructive Congestive heart failure GERD (gastroesophageal reflux disease) History of blood transfusion yrs ago-for iron deficiency anemia History of diverticulitis yrs ago History of left inguinal hernia Hyperlipidemia Hypertension controlled, stable per pt Hypothyroidism Mood disorder NICM (nonischemic cardiomyopathy) EF 45% On home O2 2 LPM qHS Paraesophageal hernia s/p repair at [facility] 2022 Presence of combination internal cardiac defibrillator (ICD) and pacemaker Medtronic. Last check 10/2023. [facility] Cardiology. Restrictive lung disease Sinus bradycardia Sleep apnea CPAP + 2 lpm Oxygen qHS Small bowel obstruction due to adhesions hx Patient denies h/o stroke, seizures, heart attack, DM, or blood clots/DVTs. Exercise / Class Metabolic Activity III < 4 Walking/Shop/Light housework (SOB with usual activities ongoing x yrs- denies change or worsening; denies chest discomfort) Past Family History Family History Other Diabetes Heart disease No family history of adverse response to anesthesia Past Surgical History Surgical History (Updated 01/25/24 @ 09:26 by Emely Zhou PA-C) H/O: hysterectomy History of cardiac catheterization 2019 [facility]. No stents. History of carpal tunnel release right and left History of cholecystectomy History of foot surgery right and left joint replacement History of left inguinal hernia repair History of left knee replacement History of open reduction and internal fixation (ORIF) procedure Left femur History of repair of hiatal hernia Past Anesthesia History No Hx of Anesthesia Complications and No Family Hx of Anesthesia Complications History of PONV No Hx of PONV and No Hx of Motion Sickness Social History Smoking Status: Never smoker Do You Dip or Chew Tobacco: No Hx Alcohol Use: Yes Alcohol type: wine alcohol intake frequency: 0-2 drinks per day Hx Substance Use: No substance use type: does not use Review of Systems Patient denies chest pain, fever, chills, cough, wheezing, or palpitations. Physical Exam Vital Signs Vitals BP 128/92 P 62 TEMP 98.2 SP02 96% on RA RESP 17 Physical Patient resting comfortably in chair in no acute distress, alert and oriented, responding appropriately throughout visit Full cervical extension range of motion without pain TMD 3.5 finger breadths Mallampati Score 3 Dentition: edentulous, full upper and lower dentures Lungs: normal respiratory effort. Good air movement, clear throughout to auscultation, no adventitious breath sounds Cardiac: regular rate and rhythm, no murmurs noted Carotid arteries: negative bruit bilat Lab Results Anesthesia Preop Results Results Anesthesia Widget: WBC 5.45 K/ul (4.8-10.8) 01/25/24 Hgb 12.5 g/dl (12.0-16.0) 01/25/24 Hct 37.9 % (37.0-47.0) 01/25/24 Plt 197 K/uL (130-400) 01/25/24 Na 139 mmol/L (136-145) 01/25/24 K 4.3 mmol/L (3.5-5.1) 01/25/24 Cl 104 mmol/L (98-107) 01/25/24 CO2 30 mmol/L (21-32) 01/25/24 BUN 17 mg/dl (6-23) 01/25/24 Creat 1.01 mg/dl (0.6-1.2) 01/25/24 Glucose Level 98 mg/dl (70-99(Fasting)) 01/25/24 PT 10.9 Seconds (9.0-12.0) 01/25/24 PTT 27 Seconds (21-31) 01/25/24 INR 1.0 (0.9-1.1) 01/25/24 Blood Type O Positive 01/25/24 Antibody Screen NEGATIVE 01/25/24 Testing Electrocardiogram Date: 11/01/23 Electronic atrial pacemaker, rate 63 bpm LVH with secondary repolarization abnormality Chest X-Ray Date: 01/25/24 No acute cardiopulmonary findings. Stable cardiomegaly. Echocardiogram Date: 07/26/23 EF 45% Moderate hypokinesis of the base posterior and inferior graham, otherwise mild diffuse hypokinesis Mild cLVH Moderately enlarged LA Mild mitral regurgitation Mild tricuspid regurgitation Stress Test Date: 01/10/20 Dobutamine MPHR 90% Negative for inducible ischemia EF 45-50% with dobutamine stress Mildly enlarged LV cavity Mild cLVH Moderate diffuse LV hypokinesis EF 35-39% Cardiac Catheterization Date: 06/18/20 Left main: Short and free of disease Left anterior descending: Type III in distribution giving rise to a large diagonal in its proximal third of small diagonal in its midportion. Within the left anterior descending there is mild to moderate luminal irregularities most significant narrowing of 30% at the end of its proximal third with mild calcification. A large first diagonal branch has mild luminal irregularities Left circumflex: Nondominant consisting of a large multi-branching obtuse marginal and a small atrial branch. There is no disease in left circumflex Ramus intermedius: Small vessel without disease Right coronary artery: Moderately large vessel dominant distribution giving rise to a sinoatrial branch at its origin a right ventricular branch in its midportion, and accessory and true PDA and along the AV groove 3 small posterior ventricular branches. There are mild luminal irregularities in the right coronary distribution only Mild coronary atherosclerosis without obstruction Other Testing ICD report 11/23/23 Medtronic Mode: AAIR DDDR 0 shocks delivered Unable to obtain additional information due to quality of scan
--- NOTE | 2024-02-11 10:44 | History & Physical Report ---
Date of Service February 11, 2024 Assessment & Plan (1) Right knee DJD: 78-year-old female with advanced right knee arthritis. She has failed conservative measures. She had a left knee replaced years ago by Dr. Piedad arias and is done well from this. She would like to have her right knee fixed. Plan: Proceed with right total knee replacement for the risks Mente this procedure explained to the patient include but not limited to DVT PE infection neurological and vascular problem bleeding problems persistent pain. The patient understands and desires to proceed. Informed consent was obtained. She does live alone and she is hoping to go [facility]. We are waiting on formal cardiac clearance that she is got cardiomyopathy. She does have some respiratory issues and has a PEEP CPAP machine and she will bring that with her. Will plan on aspirin for DVT prophylaxis. (2) Mood disorder: (3) Hyperlipidemia: (4) Hypertension: (5) NICM (nonischemic cardiomyopathy): History of Present Illness Chief Complaint: . Right knee pain. Primary Care Provider: Jose Villavicencio MD . Patient is a 78-year-old female from [place] who presents for surgical treatment of her right knee. Scar a long history of knee problems had her left knee replaced by Dr. Piedad arias back in 2013. He had a femur fracture treated by him as well. Left knee is done okay. Over the years she developed increased pain discomfort in her right knee. Is mostly medial pain but some global pain. The more she is up and onto more it hurts. She been through extensive conservative treatment provide at [facility]. The gel shot actually made things worse. The steroid limits pain for a very brief period of time. She has been wearing a brace with minimal relief. She become more debilitated by her knee pain and discomfort. She like to have her right knee fixed. Allergies Allergy/AdvReac Type Severity Reaction Status Date / Time Penicillins Allergy Mild pain Verified 01/17/24 14:38 Home Medications Medication Instructions Recorded Confirmed Type aspirin 81 mg tablet,delayed 81 mg PO QAM 05/19/20 01/17/24 History release calcium polycarbophil 625 mg 1,250 mg PO QDD 05/19/20 01/17/24 History tablet (Fiber (calcium polycarbophil)) cholecalciferol (vitamin D3) 25 75 mcg PO QAM 05/19/20 01/17/24 History mcg (1,000 unit) capsule (Vitamin D3) cyanocobalamin (vitamin B-12) 1,000 mcg PO QAM 05/19/20 01/17/24 History 1,000 mcg tablet (Vitamin B-12) krill 1 cap PO HS 05/19/20 01/17/24 History vti-vk-0-stt-cqm-uvjtamngmdxop 300 mg-90 mg-24 mg-50 mg capsule (krill oil) levothyroxine 50 mcg capsule 50 mcg PO QAM 05/19/20 01/17/24 History lisinopril 40 mg tablet 40 mg PO HS 05/19/20 01/17/24 History metoprolol succinate 25 mg 25 mg PO BID 05/19/20 01/17/24 History tablet,extended release 24 hr multivitamin 1 cap PO QAM 05/19/20 01/17/24 History omeprazole 20 mg tablet,delayed 20 mg PO QAM 05/19/20 01/17/24 History release spironolactone 25 mg tablet 12.5 mg PO MOWEFR@0900 05/19/20 01/17/24 History denosumab 60 mg/mL subcutaneous 60 mg subcut DIRECTED 06/18/20 01/17/24 History syringe (Prolia) citalopram 10 mg tablet 10 mg PO QAM 06/14/23 01/17/24 History rosuvastatin 10 mg tablet 10 mg PO QAM 06/14/23 01/17/24 History solifenacin 10 mg tablet 10 mg PO HS 06/14/23 01/17/24 History amlodipine 2.5 mg tablet 2.5 mg PO QAM 01/17/24 01/17/24 History Past Med/Surg History Medical History Paraesophageal hernia s/p repair at [facility] 2022 Restrictive lung disease Congestive heart failure History of blood transfusion yrs ago-for iron deficiency anemia History of diverticulitis yrs ago On home O2 2 LPM qHS Sleep apnea CPAP + 2 lpm Oxygen qHS Presence of combination internal cardiac defibrillator (ICD) and pacemaker Medtronic. Last check 10/2023. [facility] Cardiology. CAD (coronary artery disease) nonobstructive Mood disorder Small bowel obstruction due to adhesions hx Sinus bradycardia NICM (nonischemic cardiomyopathy) EF 45% History of left inguinal hernia GERD (gastroesophageal reflux disease) Hypothyroidism Hyperlipidemia Hypertension controlled, stable per pt Surgical History History of cardiac catheterization [address] [place] [address]. No stents. History of left inguinal hernia repair History of repair of hiatal hernia History of open reduction and internal fixation (ORIF) procedure Left femur History of foot surgery right and left joint replacement History of left knee replacement History of carpal tunnel release right and left H/O: hysterectomy History of cholecystectomy Family History Other Diabetes Heart disease No family history of adverse response to anesthesia Social History Smoking Status: Never smoker Second Hand Exposure: No; Do You Dip or Chew Tobacco: No; Hx Alcohol Use: Yes Alcohol type: wine Hx Substance Use: No Preferred Language: Hungarian Communication Ability: Effective [employer] Teacher Required: No Beliefs That Will Affect Care: None Current Living Situation: Spouse 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 Physical Exam . Physical examination was a pleasant elderly female. Looks in pretty good health. Examination of the right knee reveal patient ambulates independently. She does limp on the right side. Varus alignment to her knee. She is tender with medial joint line. Small knee effusion. Range of motion 5-1 20. No instability. Negative straight leg raise. No particular pain with hip motion. Constitutional WD/WN, vitals as above Neck trachea midline, no thyromegaly Respiratory normal respiratory effort, lungs clear to auscultation Cardiovascular RRR, no murmur, no edema Gastrointestinal (Abdomen) normal bowel sounds, soft, nontender, no hepatosplenomegaly Results & Data Results & Data Laboratory Results . Diagnostic Findings . X-rays of the right knee were reviewed. Shows advanced right knee DJD. She had complete loss of medial joint space. She has subchondral sclerosis. She got osteophytes primarily medially. The left knee replaced looks very good position. She got an IM nail in the left femur as well. PG Care Time/CCT Total # of Minutes Spent Total Time Spent with Patient: Total time spent is greater than 50% in coordination of care (as documented) at patient's floor/unit and/or counseling patient: Coding Level of Care Code None Diagnoses Right knee DJD M17.11 Mood disorder F39 Hyperlipidemia E78.5 Hypertension I10 NICM (nonischemic cardiomyopathy) I42.8
[~2024-02-17 09:03] MED LIST: BUPIVACAINE 0.5 % 5 MG/1 ML PF 10ML VIAL ONE; EPINEPHrine INJ 1 MG/ML AMP ONE; ROPIVACAINE 0.5% 5 MG/ML 30 ML VIAL ONE
[2024-02-17] MEDS ORDERED: PROPOFOL IV EMULSION 10 MG/ML 20 ML VIAL IV ONE ×2 (09:09→12:09)
[2024-02-17] MEDS ORDERED: MIDAZOLAM HCL 1 MG/ML 2ML VIAL ONE (09:10)
[2024-02-17] MEDS ORDERED: fentaNYL citrate PF 100 MCG/2 ML VIAL ONE (09:10)
[2024-02-17] MEDS: LR 500ML BOLUS, THEN 15ML/HR IV SCH (09:55)
[2024-02-17] MEDS: ACETAMINOPHEN 500 MG TAB PO SCH ×2 (10:02→15:52)
[2024-02-17] MEDS: dexAMETHasone**PF** 10 MG/ML VIAL IV SCH (10:02)
[2024-02-17] MEDS: LR 60ML/HR IV SCH (10:03)
[2024-02-17] MEDS: FAMOTIDINE 20 MG TAB PO SCH (10:03)
[2024-02-17] MEDS: METOCLOPRAMIDE HCL 10 MG TABLET PO SCH (10:03)
[2024-02-17] MEDS: CeleBREX 200 MG CAP PO SCH (10:03)
--- NOTE | 2024-02-17 10:39 | History & Physical Bridge Note ---
Date of Service February 17, 2024 History & Physical Bridge Note I have examined the patient, reviewed the History & Physical and in the interval since the performance of the History & Physical I have noted the following changes of clinical significance: no changes noted
[2024-02-17] MEDS: ceFAZolin 2000MG 2,000 MG/15 ML SYR IV SCH ×2 (11:14→20:00)
[2024-02-17] MEDS ORDERED: ePHEDrine sulfate 50 MG/ML AMP IV PRN (11:50)
[2024-02-17] MEDS: ROPIV 0.5% 246mg, Ketorolac 30mg, EPINEPHrine 0.5mg in NSS INFIL SCH (11:50)
[2024-02-17] MEDS ORDERED: ATROPINE SULFATE 0.1 MG/ML 10ML SYR IV PRN (11:50)
[2024-02-17] MEDS: TRANEXAMIC ACID 1,000 MG **IV Intra-op IV SCH (11:51)
[2024-02-17] MEDS: ORTHO JOINT ANESTHETIC ONE (12:21)
--- NOTE | 2024-02-17 12:57 | Operative Report ---
PG Post Operative Report Pre & Post Diagnosis Operation Date: 02/17/24 10:40 Pre-Op Diagnosis: Right Knee Degenerative Joint Disease Post-Op Diagnosis: Right Knee Degenerative Joint Disease I identified the patient and participated in the time-out.: Yes Procedure Operation Date: 02/17/24 10:40 Actual Procedures p Right Total Knee Arthroplasty(Right) - Iain Fernando MD Surgeon Iain Fernando MD Mill Washer Shahriar Quezada PA-C Estimated Blood Loss 50 Findings Consistent with Post-Op Diagnosis Operative findings reveal advanced grade 4 [id number]-[id number]-gljk disease with eburnation of the bone in both the medial and patellofemoral compartments. She had a moderate-sized joint effusion. Fixed varus deformity to her knee. Specimens Right knee sent for pathology. Anesthesia Type Spinal MAC Complications none Disposition Accompanied Patient To Recovery: No Indications Patient is a 78-year-old female is had a long history of knee problems. She had her left knee replaced previously. Over the past several years she developed increased pain discomfort and stiffness in her right knee. She failed conservative measures. X-rays show advanced knee arthritis. She elected proceed with total knee arthroplasty. Description of Procedure Operative implants consist of: 1. Biomet Vanguard size 65 right posterior stabilized femoral component. 2. Biomet size 67 tibial tray. 3. 10 mm post stabilized polyethylene insert. 4. 31 x 8 all poly patella. The patient was taken to the operating, identified, placed on the operating table in the supine position but all contact areas were appropriately padded. IV antibiotics tried by anesthesia team. Spinal anesthetic and abductor canal block had been provided in the holding area. Woodard catheter was placed in steri le fashion. Right Tetrick was then placed in the right lower extremity was then prepped and draped in usual sterile fashion. The right leg was elevated exsanguinated with use of an Esmarch and a turn was placed at 300 mmHg. An anterior approach to the right knee was then performed to longitudinal incision centered over the patella. Sharp dissection was carried through subcutaneous tissue down the extensor mechanism. A medial parapatellar arthrotomy incision was made. Some subperiosteal dissection was carried out medially. The fat pad was resected from Neath patella tendon. Lateral patellofemoral ligament was released. Patella subluxated laterally knee was flexed. The osteophytes taken distal femur. The ACL and PCL were then released from distal femur the tibia subluxated anteriorly. The external tibial alignment jig was then placed on the anterior face of the tibia and adjusted 14 mm medially. Proximal tibial cut was made millimeter bone from most deficient aspect medial tibial plateau. Some osteophytes were taken off medially. The tibia was sized to a size 67. Attention drawn the femur. The distal femur was then with a sharp drill. Intramedullary canal was suction. Right 5 degree valgus cutting guide was placed. The distal femoral cutting block was pinned in place. Distal femoral cut was made take an additional 3 mm of bone off distal femur. The femur was then sized to a size 65. The AP cutting block was pinned parallel to the epicondylar axis which was 4 degrees of external rotation. The anterior cut, anterior chamfer, posterior cut, posterior chamfer cuts were made. The box cutting guide was placed in just slight lateral and the box cut was made. The knee was flexed. The remnants of the medial and lateral menisci were excised. The osteophyte taken off the posterior aspect of the femur. A trial femoral component was placed. The tibial tray was pinned Drea external rotation and the drill and stem punch used to create defect in proximal tibia for the tibial tray. The knee was then trialed and the 10 mm insert fit most appropriately. Attention drawn the patella. The patella was cleaned of all soft tissue. Patella thickness measured 18 mm in thickness. It was cut down to 12. Was sized to a size 31 patella. The lug holes were drilled for 31 patella. The lateral osteophyte was removed. Patella button was placed. Knee was taken through range of motion patella tracked nicely with no thumbs test. Attention drawn to placing the permanent components. All trial components were removed. Bone plug was placed into this femur limit blood loss. A double batch Palacos G cement was mixed. Biomet Vanguard size 65 right posterior by femoral component, size 67 tibial tray, a 10 mm posterior stabilized polyethylene insert, and a 31 x 8 all poly patella then cemented in place. The knee was brought out into full extension till cement hardened. Final cement check was then performed. The pericapsular tissues were injected with total of 100 cc of orthopedic joint mix. The patient did receive 1 g tranexamic acid. The tourniquet was then let down for final tourniquet time 52 minutes. Hemostasis assured with electrocautery. Extensor Metros then closed with combination 1 PDS suture #1 Vicryl suture in a [id number] fashion. Extensor mechanism checked and found to be intact. The subcutaneous tissue was then closed with 2 Dexon suture in buried interrupted fashion skin was closed skin cherise. Leg was then cleaned and dried and sterile dressed with Xeroform, 4 fours, sterile cast padding, Ravi bandage were applied. Patient then transferred to the recovery room in stable condition. Patient tolerated procedure well and there were no complications. Shahriar Quezada, my physician dietary assistant, was present for the entire procedure. His assistance was essential and required for appropriate patient positioning, prepping and draping, surgical exposure, performing the technical details of the operation, placement the implants, closure of the wound, and placement of the sterile bandage. I attest to the content of the Intraoperative Record and any orders documented therein. Any exceptions are noted below.
--- NOTE | 2024-02-17 13:28 | XRay Report ---
XR knee RT 1 or 2V routine HISTORY: 78 years-old Female Surgical Post Op right knee arthroplasty COMPARISON: 01/12/2024 TECHNIQUE: 2 views of the right knee FINDINGS: Total joint arthroplasty with patellar resurfacing. Anterior midline skin cherise with expected posto perative soft tissue swelling and deep tissue air. No acute fracture or unexpected opaque foreign bod y. IMPRESSION: Total joint arthroplasty and patellar resurfacing with expected postoperative changes. ACT 112: Negative or not required by law. The above report was generated using voice recognition software. It may contain grammatical, syntax o r spelling errors. Electronically signed by: Ibrahima David M.D. 02/17/2024 1:27 PM
--- NOTE | 2024-02-17 14:15 | Anesthesiology Progress Note ---
Date of Service February 17, 2024 Anesthesia Post Procedure Vital Signs Vital Signs: Temp Pulse Resp BP BP Pulse Ox O2 Del Method 02/17/24 13:50 65 20 150/75 H 92 Room Air 02/17/24 13:40 65 16 149/77 H 92 Room Air 02/17/24 13:30 36.3 C L 62 16 144/72 H 95 Room Air 02/17/24 13:20 64 15 150/76 H 93 Room Air 02/17/24 13:10 67 24 151/65 H 94 Room Air 02/17/24 13:00 65 22 138/71 95 Room Air 02/17/24 12:50 64 18 132/61 99 Oxymask 02/17/24 12:43 36.5 C 65 16 111/86 97 Oxymask 02/17/24 09:44 37.0 C 63 20 163/93 H 98 Room Air O2 Flow Rate 02/17/24 13:50 02/17/24 13:40 02/17/24 13:30 02/17/24 13:20 02/17/24 13:10 02/17/24 13:00 02/17/24 12:50 5 02/17/24 12:43 5 02/17/24 09:44 Transfer of Care Handoff Completed per policy Notes Mental Status: alert / awake / arousable Patient Amnestic to Procedure: Yes Nausea / Vomiting: adequately controlled Pain: adequately controlled Airway Patency, RR, SpO2: stable & adequate BP & HR: stable & adequate Hydration State: stable & adequate Neuraxial Anesthesia: was administered and sensory block is resolving Anesthetic Complications: no major complications apparent
[2024-02-17] MEDS ORDERED: NALOXONE HCL 0.4 MG/1 ML VIAL/CARP IV PRN (14:31)
[2024-02-17] MEDS ORDERED: bisacodyL 10 MG SUPP PR PRN (14:31)
[2024-02-17] MEDS ORDERED: oxyCODONE HCL IR 5 MG TAB (IMMEDIATE RELEASE) PO PRN (14:31)
[2024-02-17] MEDS ORDERED: METOCLOPRAMIDE HCL INJ 5 MG/ML 2 ML VIAL IV PRN (14:31)
[2024-02-17] MEDS ORDERED: MAGNESIUM HYDROXIDE SUSP 30 ML UDC PO PRN (14:31)
[2024-02-17] MEDS ORDERED: ALUMINUM/MAGNESIUM SUSP 30 ML UDC PO PRN (14:31)
[2024-02-17] MEDS ORDERED: HYDROmorphone INJ 0.5 MG/0.5 ML SYR IV PRN (14:31)
[2024-02-17] MEDS ORDERED: ONDANSETRON INJ 2 MG/ML 2 ML VIAL IV PRN (14:31)
[2024-02-17] MEDS: SODIUM CHLORIDE 0.9% 1,000 ML IV SCH (15:35)
[2024-02-17] MEDS: KETOROLAC TROMETHAMINE 15 MG/ML VIAL IV SCH (15:52)
[2024-02-17] MEDS: ASCORBIC ACID 500 MG TAB PO SCH (18:14)
[2024-02-17] MEDS: TRANEXAMIC ACID / 0.7% NACL 1,000 MG/100 ML BAG IV SCH (18:18)
[2024-02-17] MEDS: CALCIUM POLYCARBOPHIL 625MG TAB PO SCH (19:14)
[2024-02-17] MEDS: DOCUSATE SODIUM 100 MG CAP PO SCH (20:00)
[2024-02-17] MEDS: ASPIRIN 81 MG ECTAB PO SCH (20:00)
[2024-02-17] MEDS: OXYBUTYNIN CHLORIDE XL 5 MG TABCR PO SCH (20:01)
[2024-02-17] MEDS: SENNA 8.6 MG TAB PO SCH (20:01)
[2024-02-17] MEDS: lisinopril 40 MG TAB PO SCH (20:37)
[2024-02-17] MEDS: METOPROLOL SUCC 25MG EXT REL TAB PO SCH (20:37)
[2024-02-17] MEDS ORDERED: NON-FORMULARY MEDICATION (Krill-Omega-3-Dha-Epa-Lipids [Krill Oil] 300-90-24-50 mg Capsule PO SCH (21:00)
--- OUTSIDE RECORDS SUMMARY | 2024-02-18 03:54 | External Medical Summary | Summary of Care ---
Author Name Unknown Organization [facility] Address [address] [facility] [place] [address] Phone [phone] Care Team Providers Care Trim And Burr Operator Name Role Phone Jose Villavicencio MD Primary Care Provider [phone]- [phone] Reason for Visit * Reason Comments Outpatient Testing Encounter Details Date Type Department Care Team (Late st Contact Info) Description 02/02/2024 10:20 AM EDT Laboratory Laboratory, [facility] [address] [place] [address] [facility] [address] [facility] [place] [id number] Senile osteoporosis Allergies Active Allergy Reactions Criticality Noted Date Comments Penicillins 03/06/2001 weakness documented as of this encounter (statuses as of 02/03/2024) Medications Medication Sig Dispensed Refills Start Date End Date Status VITAMIN B-12 1000 MCG PO TABSIndications:Oste oporosis 1 tablet once daily 92 Tab 3 2010 Active MULTI COMPLETE PO CAPS one daily 0 Active Iron-Vitamin C 65-125 MG Tablet Take 1 Tablet by mouth at bedtime. 0 Active Cholecalciferol (VITAMIN D3) 3000 UNITS Tablet Take 1 Tablet by mouth in the morning. 0 Active [place]-3 Krill Oil 300 MG Capsule take one tablet po daily 0 Active hydrOXYzine HCl 25 MG tabletIndications:De rmatitis Take 1 Tab by mouth every 6 hours as needed for Itching. 40 Tab 5 07/10/2019 Active Denosumab 60 MG/ML Subcutaneous Solution Prefilled Syringe Inject 60 mg under the skin every 6 months. 0 Active aspirin enteric coated 81 MG TBECIndications:Mirror Polisher enrique systolic heart failure (HCC) Take 1 Tab by mouth daily. 30 Tab 11 01/14/2020 Active Vitamin C 1000 MG Oral Tablet Take 1 Tablet by mouth in the morning. 0 Active Clobetasol Propionate 0.05 % External Ointment (Temovate)Indication s:Psoriasis APPLY TOPICALLY TO AFFECTED AREA 2 TIMES A DAY FOR UP TO 2 WEEKS. 30 g 1 06/22/2021 Active Solifenacin Succinate 10 MG Oral Tablet (VESIcare) Take 1 Tablet by mouth in the morning. 90 Tablet 3 03/29/2023 Active Metoprolol Succinate ER 25 MG Oral Tablet Extended Release 24 Hour (toPROL XL)Indications:HTN, goal below 140/90 Take 1 Tablet by mouth in the morning and 1 Tablet before bedtime. 60 Tablet 11 04/22/2023 Active Levothyroxine Sodium 50 MCG Oral Tablet (Levoxyl)Indications :Hypothyroidism (at least 30 min prior to breakfast or other meds) 90 Tablet 3 07/05/2023 Active Citalopram Hydrobromide 10 MG Oral Tablet (CeleXA) TAKE ONE TABLET BY MOUTH EVERY MORNING 90 Tablet 3 08/17/2023 Active Rosuvastatin Calcium 10 MG Oral Tablet (Crestor)Indications :Dyslipidemia, goal LDL below 70 TAKE ONE TABLET BY MOUTH IN THE MORNING 30 Tablet 5 09/02/2023 Active Lisinopril 5 MG Oral Tablet (Prinivil) Take 1 Tablet by mouth in the morning. 90 Tablet 3 09/13/2023 Active Acetaminophen 500 MG Oral Tablet (Tylenol) 2 caps every 8 hours for 3 days, then 1 cap every 4 hours as needed for pain. Do not exceed 3000mg acetaminophen (Tylenol) every 24 hours. 1 Tablet 0 11/16/2023 Active Ondansetron 4 MG Oral Tablet Disintegrating (Zofran) Dissolve 1 tablet on tongue every 8 hours as needed for post-op nausea/vomiting. 15 Tablet 0 11/16/2023 Active CPAP every night at bedtime. 0 Active Spironolactone 25 MG Oral Tablet (Aldactone)Indicatio ns:HTN, goal below 140/90,Chronic HFrEF (heart failure with reduced ejection fraction) (HCC),Congestive heart failure with cardiomyopathy (HCC) Take 1/2 tablet by mouth on Tuesday, Tuesday, and Tuesday only 20 Tablet 3 01/16/2024 Active Hospital, Clinic, or Other Facility Administered Medication Ordered Dose Route Frequency Start Date End Date Status Albuterol Sulfate (Proventil) (2.5 MG/3ML) 0.083% inhalation solution 2.5 mgIndications:Restricti ve lung disease 2.5 mg NEBULIZER PRN 12/28/2023 12/27/2024 Active Albuterol Sulfate (Proventil) (5 MG/ML) 0.5% *conc* inhalation solution 2.5 mgIndications:Restricti ve lung disease 2.5 mg NEBULIZER PRN 12/28/2023 12/27/2024 Active Denosumab (Prolia) subcut inj 60 mgIndications:Senile osteoporosis 60 mg SC ONCE 02/09/2024 02/09/2024 Active documented as of this encounter (statuses as of 02/03/2024) Active Problems Problem Noted Date Diagnosed Date Restrictive lung disease 02/23/2023 Obstructive sleep apnea of adult 02/05/2021 ICD (implantable cardioverter-defibrillator), sharonda stein, in situ 09/20/2020 Sinus bradycardia 08/01/2020 Ectopic atrial rhythm 08/01/2020 Chronic HFrEF (heart failure with reduced ejection fraction) 08/01/2020 Non-ischemic cardiomyopathy 07/18/2020 Hiatal hernia 06/05/2020 Congestive heart failure with cardiomyopathy 12/2019 Acquired hypothyroidism 02/10/2018 HTN, goal below 140/90 02/06/2016 Dyslipidemia, goal LDL below 70 06/01/2006 ADVANCE DIRECTIVE INFORMATION 07/23/2005 Overview: given to patient and spouse. Osteoporosis Overview: High fx risk 2000 Boniva, on Rx since 2001 2014 DEXA high risk fracture. Stopped meds, felt like clavicle bones were growing Taking Calcium, not to exceed 1200 mg daily. Seeing rheum. documented as of this encounter (statuses as of 02/03/2024) Resolved Problems Problem Noted Date Diagnosed Date Resolved Date Major depressive disorder 09/14/2012 Overview: ICD-10 update of inactive term Diverticulosis of colon 06/01/200607/31 Overview: Colonoscopy Menopause 08/12/2017 Overview: 1980 TAHBSO documented as of this encounter (statuses as of 02/03/2024) Immunizations Name Administration Dates Next Due COVID-19 mRNA, LNP-s, No Pre serve, 2-Dose Series (Pfizer) 10/14/2021,12/25/2020,12/04/2020 Covid-19, Mrna, Lnp-s, Pf, B ivalent, 30 Mcg, IM, 12 yrs and above (Pfizer) 10/05/2022 Pneumococcal Conjugate Vacc, 13 Valent (Prevnar) 08/12/2016 Pneumococcal Polysaccharide PPV23 (Pneumovax) 03/10/2012 Seasonal Influenza, PF, 6 M & above, IM , (FluLaval or Fluzone) 08/04/2020,08/04/2018,08/12/2017 Seasonal Influenza, Quadriva lent Hd (Fluzone Hd) 08/19/2023,09/03/2022,08/18/2021 Seasonal Influenza, Quadriva lent, No Preserve, IM 08/12/2016,08/07/2015 Seasonal Influenza, Split, I IV3, With Preserve, Inj 08/23/2014,09/17/2013,09/14/2012,09/01,09/17/2010,09/15/2009,09/16/2008 ,09/18/2007 Seasonal Influenza, Trivalen t, Adjuvanted, 65+ yrs 08/17/2019 TDAP (age 10 and older)(Boostrix) 08/18/2017 documented as of this encounter Social History Tobacco Use Types Packs/Day Years Used Date Smoking Tobacco: Never Passive Smoke Exposure: Past Smokeless Tobacco: Never Alcohol Use Standard Drinks/Week Comments Yes 7 (1 standard drink = 0.6 oz pure alcohol) wine at night- one 8 ounce glass PHQ-2 Answer Date Recorded PHQ-2 Score 0 07/10/2019 Hunger Vital Sign Answer Date Recorded Within the past 12 months, y ou worried that your food would run out before you got the money to buy more. Never true 06/21/20 23 Within the past 12 months, t he food you bought just didn't last and you didn't have money to get more. Never true 06/21/2023 Sex and Gender Information Value Date Recorded Sex Assigned at Female 02/05/2019 10:03 AM EDT Gender Identity Female 02/05/2019 10:03 AM EDT Sexual Orientation Not on file Job Start Date Occupation Industry Not on file Not on file Not on file documented as of this encounter Functional Status Functional Status Response Date of Assess ment Are you deaf or do you have serious difficulty h earing? No 11/15/2023 Are you blind or do you have serious difficulty seeing, even when wearing glasses? No 11/15/2023 Do you have serious difficul ty walking or climbing stairs? (5 years old or older) No 11/15/2023 Do you have difficulty dress ing or bathing? (5 years old or older) No 11/15/2023 Because of a physical, menta l, or emotional condition, do you have difficulty doing errands alone such as visiting a doctor s office or shopping? (15 years old or older) No 11/15/19 Cognitive Status Response Date of Assessm ent Because of a physical, menta l, or emotional condition, do you have serious difficulty concentrating, remembering, or making decisions? (5 years old or older) No 11/15/2023 documented as of this encounter Plan of Treatment Upcoming Encounters Date Type Department Care Team (Late st Contact Info) Description 02/09/2024 9:20 AM EDT Office Visit Rheumatology [place] [id number] [place] [address] Nathan Navarrete MD [facility] [place] [address] 03/01/2024 10:30 AM EDT Office Visit General Surgery, [facility] [address] [facility] [place] [address] Gurpreet Del Cid MD [address] [place] [address] 04/04/2024 10:45 AM EDT Office Visit Urology, [facility] [address] [facility] [place] [address] Uvaldo Webb MD [address] [place] [address] 04/12/2024 9:20 AM EDT Office Visit [facility] [address] [place] [facility] [place] [address] Jose Villavicencio MD [address] [place] [address] 08/20/2024 9:30 AM EDT Office Visit Gynecology/Obstetrics [facility] [address] [facility] [place] [address] Azra Slater PA-C [address] [place] [address] 08/27/2024 11:00 AM EDT Imaging Radiology [facility] 1st [facility] [address] [facility] [place] [address] 01/09/2025 11:20 AM EDT Office Visit [facility] Ctr [facility] [address] [facility] [place] [phone] Laure Lomeli DO [address] [place] [address] Health Maintenance Due Date Last Done Comments Albumin/Creatinine Ratio 1963 Depression Screening 07/10/2020 07/10/2019 COVID-19 Vaccine ( season) 2023 10/05/2022, 10/14/2021, 12/25/2020, Additional history exists *BISPHONATE OR OTHER ACCEPTABLE MEDICATION NEEDED FOR OSTEOPOROSIS (REFER TO SMARTSET #1146) 11/27/2023 COLONOSCOPY-EVERY 5 YRS AGES 18-100 07/19/2024 07/19/2019, 07/19/2019, 12/28/2013, Additional history exists TSH 10/04/2024 10/04/2023, 02/28, 09/03/2022, Additional history exists DXA Scan 10/11/2024 10/11/2022, 09/30, 10/07/2020, Additional history exists GFR 11/17/2024 11/17/2023, 10/31, 10/04/2023, Additional history exists DTaP,Tdap,and Td Vaccines (2 - Td or Tdap) 08/18/2027 08/18/2017 Pneumococcal Vaccine: 65+ Years Completed 08/12/2016, 03/10/2012 Influenza Vaccine (FLU shot) Completed 08/19/2023, 09/03/2022, 08/18/2021, Additional history exists VITAMIN D LEVEL ONCE IN A LIFETIME-USE SMARTSET# 70230 Completed 02/02/2024, 02/25/2022, 02/12/2020, Additional history exists GARDASIL-HPV IMMUNIZATION SERIES Aged Out No longer eligible based on patient's age to complete this topic Hepatitis B Aged Out No longer eligi ble based on patient's age to complete this topic MENINGOCOCCAL (MENACTRA/MENVEO) Aged Out No longer eligible based on patient's age to complete this topic Zoster Vaccines Discontinued documented as of this encounter Medical Devices Not on filedocumented as of this encounter Procedures Procedure Name Priority Date/Time Associated Diagnosis Comments 25-HYDROXY VITAMIN D Routine 02/02/2024 10:55 AM EDT Senile osteoporosis documented in this encounter Results * 25-HYDROXY VITAMIN D (02/02/2024 10:55 AM EDT) 25-Hydroxy Vitamin D 44 >19 ng/mL 02/02/2024 7:29 PM EDT [facility] [place] Venous blood specimen / Unknown Venipuncture / Unknown 02/02/2024 10:55 AM EDT 02/02/2024 10:55 AM EDT Narrative [facility] [place] 02/02/2024 7:29 PM EDT Deficient: <20 ng/mL Insufficient: 20-29 ng/mL Recommended/Optimum:30-50 ng/mL Vitamin D intoxication is rare. If suspicious of Vitamin D toxicity, evaluation of serum Calcium and PTH is recommended. Nathan Navarrete MD LAB BLOOD ORDERABLE S [facility] [address] [place] [address] documented in this encounter Visit Diagnoses Diagnosis Senile osteoporosis documented in this encounter Advance Directives Latest Code Status on File Code Status Date Activated Date Inactivated Comments Full Code 11/15/2023 1:26 PM 11/17/2023 4:58 PM This order reflects the patients wishes and were consensually agreed upon. Question Answer Comments Discussion of Advance Directives occurred with: Not Discussed due to patient's condition Code Status History Code Status Date Activated Date Inactivated Comments Full Code 11/15/2023 7:44 AM 11/15/2023 1:26 PM This order reflects the patients wishes and were consensually agreed upon. Question Answer Comments Discussion of Advance Directives occurred with: Not Discussed due to patient's condition Care Teams Trim And Burr Operator Relationship Specialty Start Date End Date Jose Villavicencio MD [address] [place] [address] PCP - General Family Medicine 02/24/21 documented as of this encounter
--- OUTSIDE RECORDS SUMMARY | 2024-02-18 03:54 | External Medical Summary | Summary of Care ---
Author Name Unknown Organization [facility] Address [address] [facility] [place] [address] Phone [phone] Care Team Providers Care Core Microarchitect Name Role Phone Jose Villavicencio MD Primary Care Provider +1- [phone] Reason for Visit * Reason Onset Date Comments Appointment 01/27/2024 Encounter Details Date Type Department Care Team (Late st Contact Info) Description 01/27/2024 Telephone Cardiology, [facility] [address] [place] [address] Lorraine Huber PA-C [address] [place] [address] Appointment Allergies Active Allergy Reactions Criticality Noted Date Comments Penicillins 03/06/2001 weakness documented as of this encounter (statuses as of 02/10/2024) Medications Medication Sig Dispensed Refills Start Date [...] by mouth in the morning. 0 Active [place]-3 Krill Oil 300 MG Capsule take one tablet po daily 0 Active hydrOXYzine HCl 25 MG tabletIndications:De rmatitis Take 1 Tab by mouth every 6 hours as needed for Itching. 40 Tab 5 07/10/2019 Active Denosumab 60 MG/ML Subcutaneous Solution Prefilled Syringe Inject 60 mg under the skin every 6 months. 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 Senile osteoporosis Overview: High fx risk 2000 Bonmonisha, on Rx since 2001 2015 DEXA high risk fracture. Stopped meds, felt like clavicle bones were growing Taking Calcium, not to exceed 1200 mg daily. Seeing rheum. documented as of this encounter (statuses as of 02/10/2024) Resolved Problems Problem Noted Date Diagnosed Date Resolved Date Major depressive disorder 09/14/2012 Overview: ICD-10 update of inactive term Diverticulosis of colon 06/01/200607/31 Overview: Colonoscopy Menopause 08/12/2017 Overview: 1980 TAHBSO documented as of this encounter (statuses as of 02/10/2024) Immunizations Name Administration Dates Next Due COVID-19 mRNA, LNP-s, No Pre serve, 2-Dose Series (servtag) 10/14/2021,12/25/2020,12/04/2020 Covid-19, Mrna, Lnp-s, Pf, B ivalent, [...] No 11/15/2023 documented as of this encounter Miscellaneous Notes * Telephone Encounter - Rashad Rudd OSA - 02/10/2024 9:16 AM EDT Patient is scheduled on: 02/15/2024 Status: [place] Time: 8:00 AM * Telephone Encounter - Crystal Sorto CMA - 02/03/2024 4:18 PM EDT Patient called to request pre-op appointment for upcoming surgery scheduled with Dr. Fernando for R TKA 02/16. Advised patient that she should receive call next week to assist with scheduling. * Telephone Encounter - Dale Bella LPN - 01/27/2024 4:30 PM EDT Patient needs a pre-op appointment for a total right knee with Dr. Sparks- tentative date 02/17/24.Scheduling please assist. documented in this encounter Plan of Treatment Upcoming Encounters Date Type Department Care Team (Late st Contact Info) Description 02/15/2024 8:00 AM EDT Office Visit Cardiology, [facility] [address] [facility] [place] [address] Saniya Bowers CRNP [address] [place] [address] 03/01/2024 10:30 AM EDT Office Visit General Surgery, [facility] [address] [facility] [place] [address] Gurpreet Del Cid MD [address] [place] [address] 03/28/2024 9:30 AM EDT Nurse Only Rheumatology [facility] [address] [facility] [place] [address] Pf, Nurse Rheum [address] [facility] [place] [address] 04/04/2024 10:45 AM EDT Office Visit Urology, [facility] [address] [place] [address] Uvaldo Webb MD [address] [address] [place] [address] 04/12/2024 9:20 AM EDT Office Visit Family [facility] [address] [place] [phone] Jose Villavicencio MD [address] [place] [address] 08/20/2024 9:30 AM EDT Office Visit Gynecology/Obstetrics [facility] [address] [facility] [place] [address] Azra Slater PA-C [address] [place] [address] 08/27/2024 11:00 AM EDT Imaging Radiology [facility] [facility] [address] [facility] [place] [address] 10/01/2024 10:30 AM EST Nurse Only Rheumatology [address] [place] [address] Pf, Nurse Rheum [address] [place] [address] [place] [address] 10/15/2024 10:00 AM EST Imaging Radiology, [address] [place] [address] 01/09/2025 11:20 AM EDT Office Visit Sleep Disorders Ctr [facility] [address] [facility] [place] [phone] Laure Lomeli, [address] [facility] [place] [address] 04/02/2025 10:40 AM EDT Office Visit Rheumatology [address] [place] [address] Nathan Navarrete MD [address] [place] [address] [place] [address] Health Maintenance Due Date Last Done Comments [...] D LEVEL ONCE IN A LIFETIME-USE SMARTSET# [id number] Completed 02/02/2024, 02/25/2022, 02/12/2020, Additional history exists [...] Not on filedocumented as of this encounter Advance Directives Latest Code Status [...] Discussed due to patient's condition Care Teams Core Microarchitect Relationship Specialty Start Date End Date Jose Villavicencio MD [address] [place] [address] PCP - General Family Medicine 02/24/21 documented as of this encounter
--- OUTSIDE RECORDS SUMMARY | 2024-02-18 03:54 | External Medical Summary | Summary of Care ---
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 Name Role Phone Jose Villavicencio MD Primary Care Provider [phone] Reason for Referral * Precert (Within 10 days (routine)) - Authorized Specialty Diagnoses / Procedures Referred By Contac t Referred To Contact Cardiac Studies Diagnoses Non-ischemic cardiomyopathy (HCC) Chronic HFrEF (heart failure with reduced ejection fraction) (HCC) Procedures ECHO, COMPLETE (2D), TRANS-THORACIC Saniya Bowers CRNP [address] [place] [address] Referral ID Status Reason Start Date Expiration Date V isits Requested Visits Authorized [id number] Authorized Precert 02/15/2024 999 999 Reason for Visit * Reason Comments Follow Up Encounter Details Date Type Department Care Team (Late st Contact Info) Description 02/15/2024 8:00 AM EDT Office Visit Cardiology, [facility] [address] [place] [address] Saniya Bowers CRNP [address] [place] [address] Preop examination*; ICD (implantable cardioverter-defibrilla tor), dual, in situ; Non-ischemic cardiomyopathy (HCC); Chronic HFrEF (heart failure with reduced ejection fraction) (HCC); HTN, goal below 140/90; Dyslipidemia, goal LDL below 70; Obstructive sleep apnea of adult Allergies Active Allergy Reactions Criticality Noted Date Comments Penicillins 03/06/2001 weakness documented as of this encounter (statuses as of 02/15/2024) Medications Medication Sig Dispensed Refills Start Date [...] by mouth in the morning. 0 Active Rome-3 Krill Oil 300 MG Capsule take one tablet po daily 0 Active hydrOXYzine HCl 25 MG tabletIndications:De rmatitis Take 1 Tab by mouth every 6 hours as needed for Itching. 40 Tab 5 07/10/2019 Active Denosumab 60 MG/ML Subcutaneous Solution Prefilled Syringe Inject 60 mg under the skin every 6 months. 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 systolic heart failure (HCC) Take 1 [...] as of this encounter (statuses as of 02/15/2024) Active Problems Problem Noted Date Diagnosed Date Restrictive lung disease 02/23/2023 Obstructive sleep apnea of adult 02/05/2021 ICD (implantable cardioverter-defibrillator)sharonda, in situ 09/20/2020 Sinus bradycardia 08/01/2020 Ectopic atrial rhythm 08/01/2020 Chronic HFrEF (heart failure with reduced ejection fraction) 08/01/2020 Non-ischemic cardiomyopathy 07/18/2020 Hiatal hernia 06/05/2020 Congestive heart failure with cardiomyopathy 12/2019 Acquired hypothyroidism 02/10/2018 HTN, goal below 140/90 02/06/2016 Dyslipidemia, goal LDL below 70 06/01/2006 ADVANCE DIRECTIVE INFORMATION 07/23/2005 Overview: given to patient and spouse. Senile osteoporosis Overview: High fx risk 2000 Boniva, on Rx since 2001 2014 DEXA high risk fracture. Stopped meds, felt like clavicle bones were growing Taking Calcium, not to exceed 1200 mg daily. Seeing rheum. documented as of this encounter (statuses as of 02/15/2024) Resolved Problems Problem Noted Date Diagnosed Date Resolved Date Major depressive disorder 09/14/2012 Overview: ICD-10 update of inactive term Diverticulosis of colon 06/01/200607/31 Overview: Colonoscopy Menopause 08/12/2017 Overview: 1980 TAHBSO documented as of this encounter (statuses as of 02/15/2024) Immunizations Name Administration Dates Next Due COVID-19 mRNA, LNP-s, No Pre serve, 2-Dose Series (Syrinix) 10/14/2021,12/25/2020,12/04/2020 Covid-19, Mrna, Lnp-s, Pf, B ivalent, 30 Mcg, IM, 12 yrs and above (Syrinix) 10/05/2022 Pneumococcal Conjugate Vacc, 13 Valent (Prevnar) [...] on file documented as of this encounter Last Filed Vital Signs Vital Sign Reading Time Taken Comments Blood Pressure 140/88 02/15/2024 8:26 AM EDT Pulse 80 02/15/2024 7:52 AM EDT Temperature - - Respiratory Rate 20 02/15/2024 7:52 AM EDT Oxygen Saturation - - Inhaled Oxygen Concentration - - Weight 79.9 kg (176 lb 4 oz) 02/15/2024 7:52 AM EDT Height - - Body Mass Index 33.06 02/02/2024 10:20 AM EDT documented in this encounter Functional Status Functional Status Response [...] (15 years old or older) No 11/15/19 24 Cognitive Status Response Date of Assessm ent Because of a physical, menta l, or emotional condition, do you have serious difficulty concentrating, remembering, or making decisions? (5 years old or older) No 11/15/2023 documented as of this encounter Progress Notes * Saniya Bowers CRNP - 02/15/2024 8:00 AM EDT 02/14/2024 Cardiology Follow Up Primary Intermediate Frame Tender: Dr. Mann Cardiac Problems: CAD Non-ischemic cardiomyopathy 3. ICD 4. HTN 5. Dyslipidemia 6. [place], wears CPAP HPI: Katie Vasquez is a 78 year old female presents for preoperative cardiac clearance for a right total replacement on 02/17/[address] Iain Fernando. Last seen in our office by Sara Huber PA-C 03/09/2023 feeling well at that time. Per prior office notes: Her cardiac history dates back to December, when she presented with chief complaint of shortness of breath with exertion. She is found to have moderate left ventricular systolic dysfunction on echocardiogram went on to have a cardiac catheterization which revealed mild to moderate luminal irregularities with no obstructive coronary heart disease therefore it was felt that she had a nonischemic cardiomyopathy. She had also been found have kirwvubnm-nf-bdtqild hypertension. Despite optimized medical therapy, her symptoms left ventricular systolic dysfunction persisted andshe underwent implantation of a dual-chamber Medtronic AICD in July,. Entresto has been too cost prohibitive in the past. Patient presents today feeling well. She reports chronic fatigue which has been her norm for years.She denies any change or decline in her functional capacity other than her knee slowing her down. Denies any chest pain, pressure, palpitations, no change in breathing, no pre- syncope, syncope or edema. BP slightly above target. Repeat is improved. Patient is compliant with all medication therapies with no untoward effects. Denies any swelling of the lower extremities. Recent device interrogation shows normal device function EKG obtained today shows Atrial pace rhythm with prolonged AV conduction. Rate 78 bpm REVIEW OF SYSTEMS: See HPI for pertinent positives. All others negative other than those noted in the HPI. CONSTITUTIONAL: No change in weight, No weakness, No fatigue and No fevers, No sweats or chills. PULMONARY: No cough, sputum, or hemoptysis, No wheezing, No shortness or breath and No recent change in breathing. CARDIOVASCULAR: No chest pain, No dyspnea on exertion, No edema, No palpitations and No syncope. GASTROINTESTINAL: No abdominal pain, No change in bowel habits, No significant heartburn, No nausea, No vomiting, No diarrhea, No constipation, No blood in stools or black tarry stools. No dysphagia. HEMATOLOGIC: No abnormal bleeding and No bruising. NEUROLOGICAL: Normal balance, No headaches and No weakness. Review of patient's allergies indicates: Allergen Reactions Penicillins weakness Current Outpatient Medications Medication Sig Dispense Refill VITAMIN B-12 1000 MCG PO TABS 1 tablet once daily 92 Tab 3 MULTI COMPLETE PO CAPS one daily Iron-Vitamin C 65-125 MG Tablet Take 1 Tablet by mouth at bedtime. Cholecalciferol (VITAMIN D3) 3000 UNITS Tablet Take 1 Tablet by mouth in the morning. Rome-3 Krill Oil 300 MG Capsule take one tablet po daily hydrOXYzine HCl 25 MG tablet Take 1 Tab by mouth every 6 hours as needed for Itching. 40 Tab 5 Denosumab 60 MG/ML Subcutaneous Solution Prefilled Syringe Inject 60 mg under the skin every 6 months. aspirin enteric coated 81 MG TBEC Take 1 Tab by mouth daily. 30 Tab 11 Vitamin C 1000 MG Oral Tablet Take 1 Tablet by mouth in the morning. Clobetasol Propionate 0.05 % External Ointment (Temovate) APPLY TOPICALLY TO AFFECTED AREA 2 TIMES A DAY FOR UP TO 2 WEEKS. 30 g 1 Solifenacin Succinate 10 MG Oral Tablet (VESIcare) Take 1 Tablet by mouth in the morning. 90 Tablet3 Metoprolol Succinate ER 25 MG Oral Tablet Extended Release 24 Hour (toPROL XL) Take 1 Tablet by mouth in the morning and 1 Tablet before bedtime. 60 Tablet 11 Levothyroxine Sodium 50 MCG Oral Tablet (Levoxyl) (at least 30 min prior to breakfast or other meds) 90 Tablet 3 Citalopram Hydrobromide 10 MG Oral Tablet (CeleXA) TAKE ONE TABLET BY MOUTH EVERY MORNING 90 Tablet3 Rosuvastatin Calcium 10 MG Oral Tablet (Crestor) TAKE ONE TABLET BY MOUTH IN THE MORNING 30 Tablet 5 Lisinopril 5 MG Oral Tablet (Prinivil) Take 1 Tablet by mouth in the morning. 90 Tablet 3 Acetaminophen 500 MG Oral Tablet (Tylenol) 2 caps every 8 hours for 3 days, then 1 cap every 4 hours as needed for pain. Do not exceed 3000mg acetaminophen (Tylenol) every 24 hours. 1 Tablet 0 Ondansetron 4 MG Oral Tablet Disintegrating (Zofran) Dissolve 1 tablet on tongue every 8 hours as needed for post-op nausea/vomiting. 15 Tablet 0 CPAP every night at bedtime. Spironolactone 25 MG Oral Tablet (Aldactone) Take 1/2 tablet by mouth on Tuesday, Tuesday, and Tuesday only 20 Tablet 3 Current Facility-Administered Medications Medication Dose Route Frequency Provider Last Rate Last Admin Albuterol Sulfate (Proventil) (2.5 MG/3ML) 0.083% inhalation solution 2.5 mg 2.5 mg Nebulizer PRN James Valentin MD 2.5 mg at 02/02/24 1018 Albuterol Sulfate (Proventil) (5 MG/ML) 0.5% *conc* inhalation solution 2.5 mg 2.5 mg Nebulizer James Irizarry MD Past Medical History: Diagnosis Date Hypercholesterolemia HYPERLIPIDEMIA NEC/NOS 06/01/2006 Menopause Osteoporosis Sleep apnea, obstructive Family History Problem Relation Age of Onset Diabetes Mother Other (Suicide) Father Diabetes Sister Lung cancer Brother Heart Disorder Aunt (Unspecified) Heart Disorder Uncle (Unspecified) Heart Disorder Uncle (Unspecified) Lung cancer Grandfather (Maternal) Cancer Aunt (Maternal) in her 60s Social History Socioeconomic History Marital status: 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 No mold. [place] farm. 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 Social Determinants of Health Food Insecurity: No Food Insecurity (06/21/2023) Hunger Vital Sign Worried About Running Out of Food in the Last Year: Never true Ran Out of Food in the Last Year: Never true OBJECTIVE/PHYSICAL EXAMINATION: BP 140/88 | Pulse 80 | Resp 20 | Wt 79.9 kg (176 lb 4 oz) | BMI 33.06 kg/m | BSA 1.86 m General: No acute distress. A+Ox3. HEENT: Normocephalic. Atraumatic. PERRL. EOMI. Conjunctiva and sclera clear. NECK: No carotid bruits. No JVD. Carotid upstrokes are brisk. Heart: RRR. S1 and S2 noted. No murmur. No rubs or gallops. PMI non displaced. Lungs: Clear to auscultation. No wheezes.No rhonchi. No rales. Abdomen: Normal bowel sounds. Soft. Nontender. No masses or organomegaly. No abdominal bruits. Extremities: No edema. No clubbing or cyanosis. Pulses: radial=2/4, posterior tibial=2/4, dorsalis pedis = 2/4. NEURO: No focal deficits. PSYCH: Appropriate affect and insight. DATA Labs & Imaging Reviewed Below: Device interrogation 11/24/23 Normal Device Function Alerts or events: None Battery: 2.99V, 7.25 yrs Sensing, impedance and thresholds reviewed Programmed parameters reviewed Presenting rhythm APVS Heart Rate Histograms reviewed No significant changes noted Routine device interrogation dated Aug 2023 reviewed: Appropriate function and battery longevity of 7.6 years. 65% atrial pacing, 0.04% ventricular paced, 0% burden of Afib. Echo report reviewed from Jul 2023: Interpretation Summary The left ventricular systolic function is mildly reduced. Calculated LV ejection Fraction = 45% (bi-plane method of discs). Moderate hypokinesis of the base posterior and inferior graham, otherwise mild diffuse hypokinesis. The global longitudinal strain (GLS) is - 17.6 %. Normal left ventricular systolic function is suggested if GLS is -14% to -30%. The LV wall thickness is mildly increased (concentric). The left atrium is moderately enlarged (42-48 ml/m^2). Mild mitral regurgitation is present. Mild tricuspid regurgitation is present. There is no evidence of pulmonary hypertension. Compared to last available study changes are noted as follows: Mild mitral and tricuspid regurgitation now present Echocardiogram report reviewed dated June 08, 2022: Interpretation Summary The primary indication after review was deemed appropriate and the examination was performed. Normal LV chamber size with mild concentric LVH. Mildly reduced LV systolic function, EF 45-50%. Moderate hypokinesis of the basal and mid inferior/inferolateral graham, otherwise, borderline global hypokinesis. The global longitudinal strain (GLS) is - 18 %. Normal left ventricular systolic function is suggested if GLS is -14% to -30%. Grade I diastolic dysfunction. No significant valvular pathology. Moderate left atrial enlargement. Echo report reviewed dated March 2021: Interpretation Summary The primary indication after review was deemed appropriate and the examination was performed. Compared to last available study, there has been no interval change. Mildly dilated LV chamber size with mild concentric LVH. Moderately reduced LV systolic function with moderate global hypokinesis. Calculated LV ejection Fraction = 39% (three dimensional volumes). Grade I diastolic dysfunction. Mild mitral regurgitation. Severe left atrial enlargement. A small anterior loculated pericardial effusion is present. Summary of transthoracic echocardiogram performed 05/19/2020: The qualitative LV ejection fraction is 30-34% (moderately reduced). The left ventricular cavity is moderately dilated (LVED volume 71-80 ml/m^2). There is moderate to severe diffuse left ventricular hypokinesis. The left atrium is severely enlarged (>48 ml/m^2,). The left ventricular diastolic function is mildly abnormal (grade I). Mild mitral regurgitation is present. Compared to prior study of 01/10/2020, there is no significant change. Summary of cardiac catheterization performed 06/18/2020, Dr. Walton, [facility]: Right radial access Left main: Normal Lad: Type 3 vessel, mild to moderate luminal irregularities, no significant narrowing 30% Diagonal 1, mild luminal irregularities Circumflex: Nondominant, no significant disease in the circumflex or a large obtuse marginal Ramus intermedius: Small vessel without disease RCA: Large dominant vessel, mild luminal irregularities Left ventriculography: Diffuse left ventricular hypokinesis LVEF 20 to 25% Left ventricular pressure: 171/05/32 ASSESSMENT/PLAN: 78 year old year old female 1. Preop examination -patient is doing well from a cardiac perspective. Denies any change or decline in her functional capacity. -Recent device interrogation demonstrates normal function. -Euvolemic on exam -EKG without acute changes. -per Juaquin Criteria, patient was counseled that she would be placed at a moderate risk for any adverse perioperative cardiovascular events associated with right TKA/ orthopedic surgery. Patient is on agood medication regimen and no other cardiac testing or interventions would further lower that risk. Patient states he understands and is accepting of that risk and wishes to proceed with surgery. - EKG -Recommended to take her Toprol xl the AM of surgery with a sip of water 2. ICD (implantable cardioverter-defibrillator), dual, in situ 3. Non-ischemic cardiomyopathy (HCC) 4. Chronic HFrEF (heart failure with reduced ejection fraction) (HCC) -Normal device interrogation -Euvolemic on exam -Compliant on all medication therapies and should continue ASA 81m, Lisinopril, toprol xl, and spironolactone -Resting echocardiogram prior to one year follow up. For surveillance of LVEF, and for any progression of valvular disease (known stable history of mild mitral insufficiency) - ECHO, COMPLETE (2D), TRANS-THORACIC; Future 5. HTN, goal below 140/90 -High end of target, improved after resting for a few minutes. -Continue Toprol xl, Lisinopril , and spironolactone 6. Dyslipidemia, goal LDL below 70 -Continue Crestor and ASA -Recommend yearly lipid panel 7. Obstructive sleep apnea of adult -Compliant with CPAP with O2 at night -Follows with pulmonology DISPOSITION: Follow up 1 year or if symptoms worsen/fail to improve. All questions were answered to the patients satisfaction. Patient advised to report to ED with any and all emergencies. The patient agrees to the above plan and will call with additional questions or concerns. RUFINA Nguyễn Cardiology, [address] [place] [address] I spent a total of 33 minutes on the date of service in preparation, delivery, and documentation ofthe care provided to Katie Vasquez excluding any time spent in the performance of separately billed services. This chart was completed in part utilizing [employer] Speech Voice Recognition Software. Grammatical errors, random word insertions, pronoun errors, and incomplete sentences are an occasional consequence of this system due to software limitations, ambient noise, and hardware issues. Any formal questions or concerns about the content, text, or information contained within the body of this dictation should be directly addressed to the provider for clarification. documented in this encounter Procedure Notes * Martinez Ramires DO - 02/15/2024 8:01 AM EDTAssociated Order(s): EKG REASON FOR STUDY: pre op;pre op CONCLUSIONS: Atrial-paced rhythm with prolonged AV conduction Left ventricular hypertrophy with secondary repolarization abnormality Abnormal ECG When compared with ECG of 01-Nov-2023 12:29, QT has lengthened Ventricular Rate: 78 Atrial Rate: 78 ID Interval: 218 QRS Duration: 100 QT/QTc: 412/469 ms P-R-T [place]: 33 : -25 : 119 degrees documented in this encounter Nursing Notes * Maria R Akbar CMA - 02/15/2024 7:52 AM EDT Examination Room: 7 Name: Katie Vasquez Date of : (1945). Reason for Visit: 5 month f/u; pre-op clearance Interim Hospitalization(s): October -- hiatal hernia repair in [place] Problems/Concerns: denies Chest Pain/SOB: denies [facility] Discussed: Not applicable [facility] is a way you can talk to your provider online through e-mail. Would you like to sign up? I can activate it for you? ALREADY ACTIVE Patient was instructed to not get up on the exam table until directed and assisted by their provider; patient is to remain seated in the chair/ wheelchair/ exam table for fall prevention and safety reasons. Patient is aware to have assistance to step down off exam table with personnel. Patient voiced full comprehension of instructions. documented in this encounter Plan of Treatment Upcoming Encounters Date Type Department Care Team (Late st Contact Info) Description 03/01/2024 10:30 AM EDT Office Visit General Surgery, [facility] [address] [facility] [place] [address] Gurpreet Del Cid MD [address] [place] [address] 03/28/2024 9:30 AM EDT Nurse Only Rheumatology [place] [id number] [facility] [place] [address] Pf, Nurse Rheum [address] [place] [address] [place] [address] 04/04/2024 10:45 AM EDT Office Visit Urology, [facility] [address] [facility] [place] [address] Uvaldo Webb MD [address] [facility] [address] [place] [address] 04/12/2024 9:20 AM EDT Office Visit [facility] [address] [place] [address] Jose Villavicencio MD [address] [place] [address] 08/20/2024 9:30 AM EDT Office Visit Gynecology/Obstetrics [facility] [address] [facility] [place] [address] Azra Slater PA-C [address] [facility] [place] [address] 08/27/2024 11:00 AM EDT Imaging Radiology [facility] [address] [facility] [place] [address] 10/01/2024 10:30 AM EST Nurse Only Rheumatology [facility] [address] [facility] [place] [address] Pf, Nurse Rheum [address] [place] [address] [place] [address] 10/15/2024 10:00 AM EST Imaging Radiology, [address] [place] [address] 01/09/2025 11:20 AM EDT Office Visit Sleep Disorders Ctr [facility] [address] [place] [id number] Laure Lomeli, [address] [place] [address] 04/02/2025 10:40 AM EDT Office Visit Rheumatology [address] [place] [address] Nathan Navarrete MD [address] [place] [address] [place] [address] Scheduled Orders Name Type Priority Associated Diagnoses Orde r Schedule ECHO, COMPLETE (2D), TRANS-THORACIC Echocardiology Routine Non-ischemic cardiomyopathy (HCC) Chronic HFrEF (heart failure with reduced ejection fraction) (HCC) Expected: 02/15/2024 (Approximate), Expires: 03/16/2026 Health Maintenance Due Date Last Done Comments [...] D LEVEL ONCE IN A LIFETIME-USE SMARTSET# [id number] Completed 02/02/2024, 02/25/2022, 02/12/2020, Additional history exists [...] Procedure Name Priority Date/Time Associated Diagnosis Comments ID ECG ROUTINE ECG W/LEAST 12 LDS W/I&R Routine 02/15/2024 8:01 AM EDT Preop examination documented in this encounter Results * EKG (02/15/2024 8:01 AM EDT) 02/15/2024 8:01 AM EDT Narrative Procedure Note Martinez Ramires DO - 02/15/2024 8:01 AM EDT REASON FOR STUDY: pre op;pre op CONCLUSIONS: Atrial-paced rhythm with prolonged AV conduction Left ventricular hypertrophy with secondary repolarization abnormality Abnormal ECG When compared with ECG of 01-Nov-2023 12:29, QT has lengthened Ventricular Rate: 78 Atrial Rate: 78 ID Interval: 218 QRS Duration: 100 QT/QTc: 412/469 ms P-R-T [place]: 33 : -25 : 119 degrees Saniya ALMARAZ EKG Performing Organization Address City/State/ZIP [place] Phone Number [a][facility] documented in this encounter Visit Diagnoses Diagnosis Preop examination- Primary Preoperative examination, unspecified ICD (implantable cardioverter-defibrillator), dual, in situ Non-ischemic cardiomyopathy (HCC) Other primary cardiomyopathies Chronic HFrEF (heart failure with reduced ejection fraction) (HCC) HTN, goal below 140/90 Unspecified essential hypertension Dyslipidemia, goal LDL below 70 Other and unspecified hyperlipidemia Obstructive sleep apnea of adult Obstructive sleep apnea (adult) (pediatric) documented in this encounter Advance Directives Latest [...] Discussed due to patient's condition Care Teams 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
--- OUTSIDE RECORDS SUMMARY | 2024-02-18 03:54 | External Medical Summary | Summary of Care ---
Author Name Unknown Organization [facility] Address [address] [facility] [place] [address] Phone [phone] Care Team Providers Care Product Managent Intern Name Role Phone Jose Villavicencio MD Primary Care Provider +1- [phone] Reason for Visit * Reason Comments Pulmonary Function Test PFT with broncho dilator Encounter Details Date Type Department Care Team (Latest Contact Info) Description 02/02/2024 10:30 AM EDT PulmDiagnostic Pulmonary Function Lab, [facility] 132 [facility] [place] [address] [place], Pft 132 [facility] [place] [address] Restrictive lung disease* Allergies Active Allergy Reactions Criticality Noted Date Comments Penicillins 03/06/2001 weakness documented as of this encounter (statuses as of 02/02/2024) Medications Medication Sig Dispensed Refills Start Date [...] by mouth in the morning. 0 Active Dudley-3 Krill Oil 300 MG Capsule take one tablet po daily 0 Active hydrOXYzine HCl 25 MG tabletIndications:De rmatitis Take 1 Tab by mouth every 6 hours as needed for Itching. 40 Tab 5 07/10/2019 Active Denosumab 60 MG/ML Subcutaneous Solution Prefilled Syringe Inject 60 mg under the skin every 6 months. 0 Active aspirin enteric coated 81 MG TBECIndications:Garbage Collector Driver enrique systolic heart failure (HCC) Take 1 [...] as of this encounter (statuses as of 02/02/2024) Active Problems Problem Noted Date Diagnosed Date [...] as of this encounter (statuses as of 02/02/2024) Resolved Problems Problem Noted Date Diagnosed Date Resolved Date Major depressive disorder 09/14/2012 Overview: ICD-10 update of inactive term Diverticulosis of colon 06/01/200607/31 Overview: Colonoscopy Menopause 08/12/2017 Overview: 1980 TAHBSO documented as of this encounter (statuses as of 02/02/2024) Immunizations Name Administration Dates Next Due COVID-19 mRNA, LNP-s, No Pre serve, 2-Dose Series (Baloonr) 10/14/2021,12/25/2020,12/04/2020 Covid-19, Mrna, Lnp-s, Pf, B ivalent, [...] Passive Smoke Exposure: Past Smokeless Tobacco: Never Tobacco Cessation:Counseling Given: Not Answered Alcohol Use Standard Drinks/Week Comments Yes 7 [...] Sign Reading Time Taken Comments Blood Pressure - - Pulse - - Temperature - - Respiratory Rate - - Oxygen Saturation - - Inhaled Oxygen Concentration - - Weight 79 kg (174 lb 2.6 oz) 02/02/2024 10:20 AM EDT Height 155.5 cm (5' 1.22") 02/02/2024 10:20 AM E DT Body Mass Index 32.67 02/02/2024 10:20 AM EDT documented in this [...] No 11/15/2023 documented as of this encounter Nursing Notes * Carmen Sy, LISA - 02/02/2024 10:42 AM EDT Katie Vasquez was identified by name, Date of : (1945), and . Vitals wereobtained for testing. Body mass index is 32.67 kg/m. Pt has never smoked. Pt wears CPAP@ HS with 2 liters bled in. Pt uses 2 liters of oxygen as needed. 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 Spirometry, RAW, and TGV performed. A slow volume nebulizer treatment of 0.5ml of albuterol in 3 ml of NSS was given. The proper method of use, as well as anticipated side effects, of this svn are discussed and demonstrated to the patient. Patient demonstrates adequate delivery. Administrations This Visit Albuterol Sulfate (Proventil) (2.5 MG/3ML) 0.083% inhalation solution 2.5 mg Admin Date 02/02/2024 Action Given Dose 2.5 mg Route Nebulizer Documented By Carmen Sy RRT documented in this encounter Plan of Treatment Upcoming Encounters Date Type Department Care Team (Late st Contact Info) Description 02/09/2024 9:20 AM EDT Office Visit Rheumatology [address] [place] [address] Nathan Navarrete MD [facility] [place] [address] 03/01/2024 10:30 AM EDT Office Visit General Surgery, [facility] 132 [place] [address] Gurpreet Del Cid MD [address] [place], [place] [id number] 04/04/2024 10:45 AM EDT Office Visit Urology, [facility] 132 [place] [address] Uvaldo Webb MD 27 [facility] 270 [place] [address] 04/12/2024 9:20 AM EDT Office Visit [address] [address] Jose Villavicencio MD [facility] [facility] [address] 08/20/2024 9:30 AM EDT Office Visit Gynecology/Obstetrics [facility] [address] [place] [address] Azra Slater PABerthaC [address] [place] [address] 08/27/2024 11:00 AM EDT Imaging Radiology [facility] 1st [facility] [address] [place] [address] 01/09/2025 11:20 AM EDT Office Visit Sleep Disorders Ctr [facility] [address] [place] [phone] Laure Lomeli, [address] [place] [address] Pending Results Name Type Priority Associated Diagnoses Date /Time SPIROMETRY B/A BRONCHODILATOR Procedures Routine Restrictive lung disease 02/02/2024 10:30 AM EDT LUNG VOLUMES (PLETHYSMOGRAPHY) Procedures Routine Restrictive lung disease 02/02/2024 10:30 AM EDT Health Maintenance Due Date Last Done Comments [...] Pneumococcal Vaccine: 65+ Years Completed 08/12/2016, 03/10/2012 VITAMIN D LEVEL ONCE IN A LIFETIME-USE SMARTSET# [id number] Completed 02/25/2022, 02/12/2020, 08/12/2016, Additional history exists Influenza Vaccine (FLU shot) Completed 08/19/2023, 09/03/2022, 08/18/2021, Additional history exists GARDASIL-HPV IMMUNIZATION SERIES Aged [...] Procedure Name Priority Date/Time Associated Diagnosis Comments LUNG VOLUMES (PLETHYSMOGRAPHY) Routine 02/02/2024 10:30 AM EDT Restrictive lung disease SPIROMETRY B/A BRONCHODILATOR Routine 02/02/2024 10:30 AM EDT Restrictive lung disease documented in this encounter Visit Diagnoses Diagnosis Restrictive lung disease- Primary Other diseases of lung, not elsewhere classified documented in this encounter Administered Medications Active Administered Medications - up to 3 most recent administrations Medication Order MAR Action Action Date Dose Rate Site Albuterol Sulfate (Proventil) (2.5 MG/3ML) 0.083% inhalation solution 2.5 mg 2.5 mg, Nebulizer, PRN Other, ONCE FOR PFT, Starting on Tue12/28/23 at 0944, Until Jade 12/27/24 at 0943, For 365 days Given 02/02/2024 10:18 AM EDT 2.5 mg documented in this encounter Advance Directives Latest [...] Discussed due to patient's condition Care Teams Product Managent Intern Relationship Specialty Start Date End Date Jose Villavicencio MD [address] [facility] [place] [address] PCP - General Family Medicine 02/24/21 documented as of this encounter
--- OUTSIDE RECORDS SUMMARY | 2024-02-18 03:54 | External Medical Summary | Summary of Care ---
Author Name Unknown Organization [facility] Address [address] [facility] [place] [address] Phone [phone] Care Team Providers Care Steam Plant Control Room Operator Name Role Phone Jose Villavicencio MD Primary Care Provider +1- [phone] Reason for Visit * Reason Comments Rheum Follow Up Follow up - [facility] Encounter Details Date Type Department Care Team (Late st Contact Info) Description 02/09/2024 9:20 AM EDT Office Visit Rheumatology [place] [address] [place] [address] Nathan Navarrete MD [facility] [place] [address] Senile osteoporosis* Allergies Active Allergy Reactions Criticality Noted Date Comments Penicillins 03/06/2001 weakness documented as of this encounter (statuses as of 02/09/2024) Medications Medication Sig Dispensed Refills Start Date [...] by mouth in the morning. 0 Active [place]-3 Krill Oil 300 MG Capsule take one tablet po daily 0 Active hydrOXYzine HCl 25 MG tabletIndications:De rmatitis Take 1 Tab by mouth every 6 hours as needed for Itching. 40 Tab 5 07/10/2019 Active Denosumab 60 MG/ML Subcutaneous Solution Prefilled Syringe Inject 60 mg under the skin every 6 months. 0 Active aspirin enteric coated 81 MG TBECIndications:Drier Helper enriqeu systolic heart failure (HCC) Take 1 Tab [...] as of this encounter (statuses as of 02/09/2024) Active Problems Problem Noted Date Diagnosed Date Restrictive lung disease 02/23/2023 Obstructive sleep apnea of adult 02/05/2021 ICD (implantable cardioverter-defibrillator), du emil, in situ 09/20/2020 Sinus bradycardia 08/01/2020 Ectopic [...] as of this encounter (statuses as of 02/09/2024) Resolved Problems Problem Noted Date Diagnosed Date Resolved Date Major depressive disorder 09/14/2012 Overview: ICD-10 update of inactive term Diverticulosis of colon 06/01/200607/31 Overview: Colonoscopy Menopause 08/12/2017 Overview: 1980 TAHBSO documented as of this encounter (statuses as of 02/09/2024) Immunizations Name Administration Dates Next Due COVID-19 mRNA, LNP-s, No Pre serve, 2-Dose Series (ReviewZAP) 10/14/2021,12/25/2020,12/04/2020 Covid-19, Mrna, Lnp-s, Pf, B ivalent, [...] the money to buy more. Never true 08/22/20 23 Within the past 12 months, t [...] Pressure - - Pulse - - Temperature 36.7 C (98 F) 02/09/2024 9:24 AM EDT Respiratory Rate - - Oxygen Saturation - - Inhaled Oxygen Concentration - - Weight - - Height - - Body Mass Index - - documented in this encounter Functional Status Functional [...] No 11/15/2023 documented as of this encounter Patient Instructions * Patient Instructions* Nathan Navarrete MD - 02/09/2024 9:33 AM EDT [facility]oporosis [facility] ([facility]) Program Denosumab (brand name Prolia ) Why is this medication prescribed? Prolia has convincingly been shown to reduce fracture risk. Osteoporosis is a serious condition, which left untreated can lead to significant pain, disability, and . Most people fear a hip fracture and 40-50% of all patients with a hip fracture have had a previous fracture. Our goal is to reduce fractures. How do I take Prolia ? Prolia is given by subcutaneous injection every 6 months in a doctors office. What are the most common possible side effects of Prolia? Skin infection Skin rashes Back ache Muscle or joint pain Low Blood Calcium What are less common side effects? Atypical femur fracture Osteonecrosis of the jaw documented in this encounter Progress Notes * Nathan Navarrete MD - 02/09/2024 9:25 AM EDT [facility]oporosis [facility] ([facility]): follow up Previous Visit Plan from 10/2022 reviewed. Reason for visit: Patient seen today for further follow-up/evaluation of osteoporosis. She last received prolia 10/2022. Did not get summer dose because Génesis VALENTINE left. She is scheduled for right knee replacement next Tuesday with Dr Fernando. Due for dexa in Sep. Labs good Bone Health Summary: Risks: Falls since last [facility] visit: no Personal History of Fx since last [facility] Visit: no Prevention: Exercise : 3 or more times weekly: No Nutrition: eats calcium rich foods, Yes Gait: unsteady with walking, No, use of cane/walker, No, Calcium and Vitamin D supplements in adequate doses: Yes for vit D ROS: . Constitutional: normal . Ears, nose, throat, mouth: normal . Cardiovascular: normal . Respiratory: normal . Gastrointestinal: normal . Musculoskeletal: joint pain . Genitourinary: normal Medications: Current Outpatient Medications Medication Sig Dispense Refill VITAMIN B-12 1000 MCG PO TABS 1 tablet once daily 92 Tab 3 MULTI COMPLETE PO CAPS one daily Iron-Vitamin C 65-125 MG Tablet Take 1 Tablet by mouth at bedtime. Cholecalciferol (VITAMIN D3) 3000 UNITS Tablet Take 1 Tablet by mouth in the morning. Middleton-3 Krill Oil 300 MG Capsule take one [...] mg 2.5 mg Nebulizer James Irizarry MD Denosumab (Prolia) subcut inj 60 mg 60 mg Subcutaneous Once Nathan Navarrete MD Social History: Social History Tobacco Use Smoking status: Never Passive exposure: Past Smokeless tobacco: Never Vaping Use Vaping Use: Never used Substance Use Topics Alcohol use: Yes Alcohol/week: 7.0 standard drinks of alcohol Types: 7 5 oz of wine per week Comment: wine at night- one 8 ounce glass Drug use: No Physical Exam: Temp 36.7 C (98 F) (Infrared ) General: alert, healthy, no distress, and well nourished Heart: regular rate & rhythm and no gallops Lungs: clear to auscultation , no rales, wheezes or rhonchi Abdomen: abdomen soft, non-tender, and normal bowel sounds Musculoskeletal Exam: Normal muscle strength Mild thoracic kyphosis Assessment: 78 year old female with osteoporosis who is due for Prolia but will wait until after her knee surgery. Will get set up in February for Prolia. DEXA ordered. Plan: The following items are ordered or are in progress: 1. Education: Osteoporosis education was provided by the [facility] team (topics included disease process, DXA, calcium/vitamin D, osteoporosis medications - including administration instructions and risks/benefits, weight bearing exercise, fall prevention/safety). The patient was provided with [facility] patient education instruction sheet(s): Prolia. 2. Prevention: . Fall Prevention/Safety Education recommended and discussed . Continue calcium rich foods (goal of 3 servings daily) 3. Osteoporosis Medications : Will resume Prolia at the end of February after she is recovered from knee replacement surgery 4. Bone Density Testing: due 2 year(s) from previous 5. Laboratory: None needed 6. Followup: Will return to clinic in February for Prolia, then 6 months with nurses for Prolia then March of 2025 with me for Prolia Nathan Navarrete MD [facility] Team documented in this encounter Nursing Notes * Crystal, Jessica, STAFF THERAPIST - 02/09/2024 9:22 AM EDT Chief Complaint Patient presents with Rheum Follow Up Follow up - [facility] Medication Administration prolia Pt getting R knee replacement on February 16. documented in this encounter Plan of Treatment Upcoming Encounters Date Type Department Care Team (Late st Contact Info) Description 02/15/2024 8:00 AM EDT Office Visit Cardiology, [facility] 132 [place] [address] Saniya Bowers CRNP 132 [facility] [place] [address] 03/01/2024 10:30 AM EDT Office Visit General Surgery, [facility] 132 [facility] [place] [address] Gurpreet Del Cid MD [address] [place] [address] 03/28/2024 9:30 AM EDT Nurse Only Rheumatology [facility] [address] [place] [address] Pf, Nurse Rheum [address] [place] [address] 04/04/2024 10:45 AM EDT Office Visit Urology, [facility] 132 [facility] [place] [address] Uvaldo Webb MD 27 [facility] 270 [place] [address] 04/12/2024 9:20 AM EDT Office Visit [facility] [address] [place] [address] Jose Villavicencio MD [address] [place] [address] 08/20/2024 9:30 AM EDT Office Visit Gynecology/Obstetrics [facility] 132 [facility] [place] [address] Azra Slater PA-C 132 [facility] [place] [address] 08/27/2024 11:00 AM EDT Imaging [facility] 132 [facility] [place] [address] 10/01/2024 10:30 AM EST Nurse Only Rheumatology [address] [place] [address] Pf, Nurse Rheum [address] [place] [address] [place] [address] 10/15/2024 10:00 AM EST Imaging Radiology, [address] [place] [address] 01/09/2025 11:20 AM EDT Office Visit Sleep Disorders Ctr [address] [place] [address] Laure Lomeli DO 132 [facility] [place] [address] 04/02/2025 10:40 AM EDT Office Visit Rheumatology [address] [place] [address] Nathan Navarrete MD [address] [place] [address] [place], [place] [address] Scheduled Orders Name Type Priority Associated Diagnoses Orde r Schedule DEXA SCAN/BONE MINERAL AXIAL Medical Imaging Routine Senile osteoporosis Ordered: 02/09/2024 Health Maintenance Due Date Last Done Comments [...] D LEVEL ONCE IN A LIFETIME-USE SMARTSET# [id number] Completed 02/02/2024, 02/25/2022, 02/12/2020, Additional history exists [...] Not on filedocumented as of this encounter Visit Diagnoses Diagnosis Senile osteoporosis- Primary documented in this encounter Advance Directives Latest [...] Discussed due to patient's condition Care Teams Steam Plant Control Room Operator Relationship Specialty Start Date End Date Jose Villavicencio MD [address] [place] [address] PCP - General Family Medicine 02/24/21 documented as of this encounter
--- OUTSIDE RECORDS SUMMARY | 2024-02-18 03:54 | External Medical Summary | Summary of Care ---
Author Name Unknown Organization [facility] Address [address] [facility] [place] [address] Phone [phone] Care Team Providers Care Lace Inspector Name Role Phone oJse Villavicencio MD Primary Care Provider +1- [phone] Reason for Visit * Reason Onset Date Comments Appointment 01/27/2024 Encounter Details Date Type Department Care Team (Late st Contact Info) Description 01/27/2024 Telephone Cardiology, [facility] [address] [place] [address] Lorraine Huber PA-C [address] [place] [address] Appointment Allergies Active Allergy Reactions Criticality Noted [...] by mouth in the morning. 0 Active [place]-3 Krill Oil 300 MG Capsule take one tablet po daily 0 Active hydrOXYzine HCl 25 MG tabletIndications:De rmatitis Take 1 Tab by mouth every 6 hours as needed for Itching. 40 Tab 5 07/10/2019 Active Denosumab 60 MG/ML Subcutaneous Solution Prefilled Syringe Inject 60 mg under the skin every 6 months. 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 Buckler enrique systolic heart failure (HCC) Take 1 [...] risk 2000 Boniva, on Rx since 2001 2015 DEXA high [...] mRNA, LNP-s, No Pre serve, 2-Dose Series ([employer]) 10/14/2021,12/25/2020,12/04/2020 Covid-19, Mrna, Lnp-s, Pf, B ivalent, [...] encounter Miscellaneous Notes * Telephone Encounter - Crystal Sorto CMA [...] 02/09/2024 9:20 AM EDT Office Visit Rheumatology [address] [place], [place] [address] Nathan Navarrete MD 2520 [facility] [place] [address] 03/01/2024 10:30 AM EDT Office Visit General Surgery, [facility] 132 [facility] [place] [address] Gurpreet Del Cid MD [address] [place] [address] 04/04/2024 10:45 AM EDT Office Visit Urology, [facility] 132 [facility] [place] [address] Uvaldo Webb MD 27 [facility] 270 [facility] [place] [address] 04/12/2024 9:20 AM EDT Office Visit [facility] [address] [place] [phone] Jose Villavicencio MD [address] [place] [address] 08/20/2024 9:30 AM EDT Office Visit Gynecology/Obstetrics [facility] 132 [facility] [place] [address] Azra Slater PA-C 132 [facility] [place] [address] 08/27/2024 11:00 AM EDT Imaging Radiology [facility] 132 [facility] [place] [address] 01/09/2025 11:20 AM EDT Office Visit Sleep Disorders Ctr [facility] 132 [facility] [place] [phone] Laure Lomeli DO 132 [facility] [place] [address] Health Maintenance Due Date Last Done Comments Albumin/Creatinine Ratio 1963 Depression Screening 07/10/2020 07/10/2019 COVID-19 Vaccine (2022- season) 2023 10/05/2022, 10/14/2021, 12/25/2020, Additional history [...] D LEVEL ONCE IN A LIFETIME-USE SMARTSET# [id number] Completed 02/02/2024, 02/25/2022, 02/12/2020, Additional history exists [...] Discussed due to patient's condition Care Teams Lace Inspector Relationship Specialty Start Date End Date Jose Villavicencio MD [address] [facility] [place] [address] PCP - General Family Medicine 02/24/21 documented as of this encounter
--- OUTSIDE RECORDS SUMMARY | 2024-02-18 03:54 | External Medical Summary | Summary of Care ---
Author Name Unknown Organization [facility] Address [address] [facility] [place] [address] Phone [phone] Care Team Providers Care Fourdrinier Machine Tender Name Role Phone Jose Villavicencio MD Primary Care Provider +1- [phone] Reason for Visit * Reason Onset Date Comments Order Request 01/30/2024 Labs / prolia Encounter Details Date Type Department Care Team (Late st Contact Info) Description 01/30/2024 Telephone Rheumatology [place] [id number] [place] [address] Nathan Navarrete MD [address] [place] [address] Order Request (Labs / prolia) Allergies Active Allergy Reactions Criticality Noted Date Comments Penicillins 03/06/2001 weakness documented as of this encounter (statuses as of 01/30/2024) Medications Medication Sig Dispensed Refills Start Date [...] by mouth in the morning. 0 Active [place]-3 Krill Oil 300 MG Capsule take one tablet po daily 0 Active hydrOXYzine HCl 25 MG tabletIndications:De rmatitis Take 1 Tab by mouth every 6 hours as needed for Itching. 40 Tab 5 07/10/2019 Active Denosumab 60 MG/ML Subcutaneous Solution Prefilled Syringe Inject 60 mg under the skin every 6 months. 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 Or Coins Salesperson enrique systolic heart failure (HCC) Take 1 [...] as of this encounter (statuses as of 01/30/2024) Active Problems Problem Noted Date Diagnosed Date [...] as of this encounter (statuses as of 01/30/2024) Resolved Problems Problem Noted Date Diagnosed Date Resolved Date Major depressive disorder 09/14/2012 Overview: ICD-10 update of inactive term Diverticulosis of colon 06/01/200607/31 Overview: Colonoscopy Menopause 08/12/2017 Overview: 1980 TAHBSO documented as of this encounter (statuses as of 01/30/2024) Immunizations Name Administration Dates Next Due COVID-19 mRNA, LNP-s, No Pre serve, 2-Dose Series (Verisim) 10/14/2021,12/25/2020,12/04/2020 Covid-19, Mrna, Lnp-s, Pf, B ivalent, [...] encounter Miscellaneous Notes * Telephone Encounter - Nathan Navarrete MD - 01/30/2024 4:38 PM EDT signed * Telephone Encounter - Jessica Rojas LPN - 01/30/2024 3:30 PM EDT Chart reviewed. Patient has been seen within the last 12 months by a Rheumatology provider. Prolia authorization approved and updated in referral. Last injection has been > 6 months and 1 day. CAMorders pended for signature. Pt needs updated vit d level, order pended, pt notified and verbalized understanding documented in this encounter Plan of Treatment Upcoming Encounters Date Type Department Care Team (Late st Contact Info) Description 02/02/2024 10:30 AM EDT PulmDiagnostic Pulmonary Function Lab, [facility] 132 [facility] [place] [address] [place], P[address] 132 [facility] [place] [address] 02/09/2024 9:20 AM EDT Office Visit Rheumatology [address] [place] [address] Nathan Navarrete MD [address] [place] [address] [place] [address] 03/01/2024 10:30 AM EDT Office Visit General Surgery, [facility] 132 [facility] [place] [address] Gurpreet Del Cid MD [address] [place], [place] [phone] 04/04/2024 10:45 AM EDT Office Visit Urology, [facility] 132 [facility] [place] [address] Uvaldo Webb MD [address] [address] 04/12/2024 9:20 AM EDT Office Visit [facility] [address] [place] [phone] Jose Villavicencio MD [address] [place] [address] 01/09/2025 11:20 AM EDT Office Visit Sleep Disorders [facility] 132 [facility] [place] [phone] Laure Lomeli, 132 [facility] [place] [address] Scheduled Orders Name Type Priority Associated Diagnoses Orde r Schedule 25-HYDROXY VITAMIN D Lab Routine Senile osteoporosis Expected: 01/30/2024, Expires: 01/29/2025 Health Maintenance Due Date Last Done Comments [...] D LEVEL ONCE IN A LIFETIME-USE SMARTSET# [id number] Completed 02/25/2022, 02/12/2020, 08/12/2016, Additional history exists [...] Discussed due to patient's condition Care Teams Fourdrinier Machine Tender Relationship Specialty Start Date End Date Jose Villavicencio MD [address] [facility] [place] [address] PCP - General Family Medicine 02/24/21 documented as of this encounter
--- OUTSIDE RECORDS SUMMARY | 2024-02-18 03:54 | External Medical Summary ---
Author Name Unknown Address Unknown Organization [id number]:LABORATORY [facility] - [address] [place] [address] Laboratory Report Ordering Provider Test Date Status GALLO WONG 02/02/2024 10:55:32 Final Deficient: <20 ng/mL
Ins ufficient: 20-29 ng/mL
Recommended/Optimum:30-50 ng/mL

Vitamin D intoxication is rare. If suspicious of Vitamin D toxicity, evaluation of serum Calcium and PTH is recommended. Observation Date Value Abnormality Reference (Units ) Status 25-OH Vitamin D total 02/02/2024 10:55:32 44 >19 (ng/mL) Final Performing Location LABORATORY [facility] - [address] [place] [address]
--- OUTSIDE RECORDS SUMMARY | 2024-02-18 03:54 | External Medical Summary | Summary of Care ---
Author Name Unknown Organization [facility] Address [address] [facility] [place] [address] Phone [phone] Care Team Providers Care Lead Technical Architect Name Role Phone Jose Villavicencio MD Primary Care Provider [phone]- [phone] Reason for Visit * Reason Comments Outpatient Testing Encounter Details Date Type Department Care Team (Late st Contact Info) Description 02/02/2024 10:20 AM EDT Laboratory Laboratory, [facility] [address] [place] [address] [facility] [address] [place] [address] Senile osteoporosis Allergies Active Allergy Reactions Criticality [...] by mouth in the morning. 0 Active [place]-3 Krill Oil 300 MG Capsule take one tablet po daily 0 Active hydrOXYzine HCl 25 MG tabletIndications:De rmatitis Take 1 Tab by mouth every 6 hours as needed for Itching. 40 Tab 5 07/10/2019 Active Denosumab 60 MG/ML Subcutaneous Solution Prefilled Syringe Inject 60 mg under the skin every 6 months. 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 systolic heart failure (HCC) Take 1 [...] 02/09/2024 9:20 AM EDT Office Visit Rheumatology [place] [address] [place] [address] Nathan Navarrete MD [facility] [place] [address] 03/01/2024 10:30 AM EDT Office Visit General Surgery, [facility] 132 [facility] [place] [address] Gurpreet Del Cid MD [address] [place] [address] 04/04/2024 10:45 AM EDT Office Visit Urology, [facility] [address] [facility] [place] [address] Uvaldo Webb MD [address] [place] [address] 04/12/2024 9:20 AM EDT Office Visit [facility] [address] [facility] [place] [phone] Jose Villavicencio MD [address] [place] [address] 08/20/2024 9:30 AM EDT Office Visit Gynecology/Obstetrics [facility] [address] [facility] [place] [address] Azra Slater PA-C [address] [place] [address] 08/27/2024 11:00 AM EDT Imaging Radiology [facility] 1st [facility] [address] [facility] [place] [address] 01/09/2025 11:20 AM EDT Office Visit Sleep Disorders Ctr [facility] [place] [phone] Laure Lomeli DO [address] [facility] [place] [address] Pending Results Name Type Priority Associated Diagnoses Date /Time 25-HYDROXY VITAMIN D Lab Routine Senile osteoporosis 02/02/2024 10:55 AM EDT Health Maintenance Due Date Last [...] D LEVEL ONCE IN A LIFETIME-USE SMARTSET# [id number] Completed 02/25/2022, 02/12/2020, 08/12/2016, Additional history exists [...] of this encounter Visit Diagnoses Diagnosis Senile osteoporosis [...] Discussed due to patient's condition Care Teams Lead Technical Architect Relationship Specialty Start Date End Date Jose Villavicencio MD [address] [place] [address] PCP - General Family Medicine 02/24/21 documented as of this encounter
--- OUTSIDE RECORDS SUMMARY | 2024-02-18 03:55 | External Medical Summary | Summary of Care ---
Author Name Unknown Organization [facility] Address [address] [facility] [place] [address] Phone [phone] Care Team Providers Care Insurance Verification Specialist Name Role Phone Jose Villavicencio MD Primary Care Provider +1- [phone] Reason for Visit * Reason Onset Date Comments Oxygen Assessment 01/25/2024 NPO Encounter Details Date Type Department Care Team (Late st Contact Info) Description 01/25/2024 Telephone Pulmonary Medicine, [facility] 132 [facility] [place] [id number] James Valentin MD [address] [facility] [place] [id number] Oxygen Assessment (NPO) Allergies Active Allergy Reactions Criticality Noted Date Comments Penicillins 03/06/2001 weakness documented as of this encounter (statuses as of 01/26/2024) Medications Medication Sig Dispensed Refills Start Date [...] by mouth in the morning. 0 Active [place]-3 Krill Oil 300 MG Capsule take one tablet po daily 0 Active hydrOXYzine HCl 25 MG tabletIndications:De rmatitis Take 1 Tab by mouth every 6 hours as needed for Itching. 40 Tab 5 07/10/2019 Active Denosumab 60 MG/ML Subcutaneous Solution Prefilled Syringe Inject 60 mg under the skin every 6 months. 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 systolic heart failure (HCC) Take 1 [...] as of this encounter (statuses as of 01/26/2024) Active Problems Problem Noted Date Diagnosed Date [...] as of this encounter (statuses as of 01/26/2024) Resolved Problems Problem Noted Date Diagnosed Date Resolved Date Major depressive disorder 09/14/2012 Overview: ICD-10 update of inactive term Diverticulosis of colon 06/01/200607/31 Overview: Colonoscopy 7/99 Menopause 08/12/2017 Overview: 1980 TAHBSO documented as of this encounter (statuses as of 01/26/2024) Immunizations Name Administration Dates Next Due COVID-19 mRNA, LNP-s, No Pre serve, 2-Dose Series ([employer]) 10/14/2021,12/25/2020,12/04/2020 Covid-19, Mrna, Lnp-s, Pf, B ivalent, [...] encounter Miscellaneous Notes * Telephone Encounter - James Valentin MD - 01/26/2024 7:26 AM EDT Your recent oxygen level screening at night showed stable oxygen levels during sleep at night with auto CPAP 4-18 cm and 2 L nasal cannula oxygen in place. No changes are recommended at this point. Please contact the office with any additional questions. Sincerely Dr. Valentin * Telephone Encounter - Florence Reina LPN - 01/25/2024 9:33 AM EDT Pt's NPO results have been scanned into the chart. Please review and advise documented in this encounter Plan of Treatment Upcoming Encounters Date Type Department Care Team (Late st Contact Info) Description 02/09/2024 9:20 AM EDT Office Visit Rheumatology [facility] [address] [facility] [place], [place] [address] Nathan Navarrete MD [address] [facility] [place] [address] 03/01/2024 10:30 AM EDT Office Visit General Surgery, [facility] 132 [facility] [place] [address] Gurpreet Del Cid MD [address] [place] [address] 03/27/2024 10:00 AM EDT PulmDiagnostic Pulmonary Function Lab, [facility] 132 [facility] [place] [address] [address] 132 [facility] [place] [address] 04/04/2024 10:45 AM EDT Office Visit Urology, [facility] 132 [facility] [place] [address] Uvaldo Webb MD [address] [place] [address] 04/12/2024 9:20 AM EDT Office Visit Family [facility] [address] [place] [phone] Jose Villavicencio MD [address] [place] [address] 01/09/2025 11:20 AM EDT Office Visit Sleep Disorders Ctr [facility] 132 [facility] [place] [phone] Laure Lomeli DO 132 [facility] [place] [address] Health Maintenance Due Date Last Done Comments [...] D LEVEL ONCE IN A LIFETIME-USE SMARTSET# [id number] Completed 02/25/2022, 02/12/2020, 08/12/2016, Additional history exists [...] Discussed due to patient's condition Care Teams Insurance Verification Specialist Relationship Specialty Start Date End Date Jose Villavicencio MD [address] [facility] [place] [address] PCP - General Family Medicine 02/24/21 documented as of this encounter
--- OUTSIDE RECORDS SUMMARY | 2024-02-18 03:55 | External Medical Summary | Summary of Care ---
Author Name Unknown Organization [facility] Address [address] [facility] [place] [address] Phone [phone] Care Team Providers Care [employer] Ha[employer] Truck Driver Name Role Phone Jose Villavicencio MD Primary Care Provider +1- [phone] Reason for Visit * Reason Onset Date Comments Appointment 01/27/2024 Encounter Details Date Type Department Care Team (Late st Contact Info) Description 01/27/2024 Telephone Cardiology, [facility] [address] [place] [address] Lorraine Huber PA-C [address] [place] [address] Appointment Allergies Active Allergy Reactions Criticality Noted Date Comments Penicillins 03/06/2001 weakness documented as of this encounter (statuses as of 01/27/2024) Medications Medication Sig Dispensed Refills Start Date [...] by mouth in the morning. 0 Active [place]-3 Krill Oil 300 MG Capsule take one tablet po daily 0 Active hydrOXYzine HCl 25 MG tabletIndications:De rmatitis Take 1 Tab by mouth every 6 hours as needed for Itching. 40 Tab 5 07/10/2019 Active Denosumab 60 MG/ML Subcutaneous Solution Prefilled Syringe Inject 60 mg under the skin every 6 months. 0 Active aspirin enteric coated 81 MG TBECIndications:Transmission Repairer enrique systolic heart failure (HCC) Take 1 [...] as of this encounter (statuses as of 01/27/2024) Active Problems Problem Noted Date Diagnosed Date [...] as of this encounter (statuses as of 01/27/2024) Resolved Problems Problem Noted Date Diagnosed Date Resolved Date Major depressive disorder 09/14/2012 Overview: ICD-10 update of inactive term Diverticulosis of colon 06/01/200607/31 Overview: Colonoscopy Menopause 08/12/2017 Overview: 1980 TAHBSO documented as of this encounter (statuses as of 01/27/2024) Immunizations Name Administration Dates Next Due COVID-19 mRNA, LNP-s, No Pre serve, 2-Dose Series ([employer]) 10/14/2021,12/25/2020,12/04/2020 Covid-19, Mrna, Lnp-s, Pf, B ivalent, 30 Mcg, IM, 12 yrs and above ([employer]) 10/05/2022 Pneumococcal Conjugate Vacc, 13 [place] (Prevnar) [...] encounter Miscellaneous Notes * Telephone Encounter - Dale Bella LPN - 01/27/2024 4:30 PM EDT Patient needs a pre-op appointment for a total right knee with Dr. Sparks- tentative date 02/17/24.Scheduling please assist. documented in this encounter Plan of Treatment Upcoming Encounters Date Type Department Care Team (Late st Contact Info) Description 02/09/2024 9:20 AM EDT Office Visit Rheumatology [facility] [address] [place] [address] Nathan Navarrete MD [address] [place] [address] 03/01/2024 10:30 AM EDT Office Visit General Surgery, [facility] 132 [facility] [place] [address] Gurpreet Del Cid MD [address] [place] [address] 03/27/2024 10:00 AM EDT PulmDiagnostic Pulmonary Function Lab, [facility] [place] [address] [address] 132 [facility] [place] [address] 04/04/2024 10:45 AM EDT Office Visit Urology, [facility] 132 [facility] [place] [address] Uvaldo Webb MD [address] [address] 04/12/2024 9:20 AM EDT Office Visit [facility] [address] [place] [phone] Jose Villavicencio MD [address] [place] [address] 01/09/2025 11:20 AM EDT Office Visit Sleep Disorders Ctr [facility] 132 [facility] [place] [phone] Laure Lomeli DO 132 [facility] [place] [address] Health Maintenance Due Date Last Done Comments [...] D LEVEL ONCE IN A LIFETIME-USE SMARTSET# [id number] Completed 02/25/2022, 02/12/2020, 08/12/2016, Additional history exists [...] Discussed due to patient's condition Care Teams Long Haul Truck Driver Relationship Specialty Start Date End Date Jose Villavicencio MD [address] [place], [place] [phone] PCP - General Family Medicine 02/24/21 documented as of this encounter
[2024-02-18] MEDS: LEVOTHYROXINE SODIUM 50 MCG TABLET PO SCH (05:31)
[2024-02-18 07:08] LABS: Hematocrit (blood only) 30.4 % (37.0-47.0); Hemoglobin 10.2 g/dl (12.0-16.0); Mean Corpuscular Hgb Conc 33.6 g/dL (32.0-36.0); Mean Corpuscular Volume 95.3 fL (80.0-100.0); Mean Platelet Volume 10.7 fL (9.4-12.4); Platelet Count 197 K/uL (130-400); RDW Coefficient of Variation 13.3 % (11.5-14.5); RDW Standard Deviation 46.7 fL (36.4-46.3); Red Blood Count 3.19 M/uL (4.20-5.40); White Blood Count 10.11 K/ul (4.8-10.8)
[2024-02-18 07:22] LABS: BUN Creatinine Ratio 21.9 (10-20); Calcium 9.8 mg/dl (8.6-10.3); Creatinine Clr Calc Pharmacy 42.1 ml/min; Est GFR (African American) 58.9 ml/min; Est GFR (Non-African American) 50.8 ml/min; Potassium 3.6 mmol/L (3.5-5.1)
--- NOTE | 2024-02-18 07:33 | Surgery Progress Note ---
Date of Service February 18, 2024 Assessment & Plan (1) Status post right knee replacement: Plan: 78-year-old female postop day 1 from a right knee replacement. She is doing remarkably well. She is getting around quite well. Pain is controlled. She is neurologically intact. Plan: 1. DVT prophylaxis including thigh-high teds, SCDs, aspirin twice a day. 2. PT/OT. Weight-bear as tolerated.. 3. Pain control doing well with current pain regimen. 4. Disposition she is open to go to rehab. financial services director will begin working on that today. Admission and Anticipated Discharge Date Admission Date: February 17, 2024 Subjective 78-year-old female postop day 1 from a right knee replacement. She is doing quite well. Had a good night. Denies any real significant pain. No chest pain or shortness of breath not feeling dizzy or lightheaded. Physical Exam Physical Exam: Physical examination was a pleasant elderly female. She is sitting on bed looks comfortable. Examination of the right leg reveals dressing be clean dry and intact patient can dorsiflex and plantarflex her foot appropriately. She can do a good straight leg raise. Respiratory: normal respiratory effort, lungs clear to auscultation Cardiovascular: RRR, no murmur, no edema Gastrointestinal (Abdomen): normal bowel sounds, soft, nontender, no hepatosplenomegaly Results & Data Vital Signs (Past 12 Hours) Vital Signs Temp Pulse Resp BP BP Pulse Ox O2 Del Method 02/18/24 07:13 36.4 C L 61 16 149/75 H 92 Room Air 02/18/24 03:00 36.5 C 62 20 161/84 H 94 Nasal Cannula 02/17/24 23:00 36.6 C 61 20 153/82 H 95 Nasal Cannula O2 Flow Rate 02/18/24 07:13 02/18/24 03:00 2 02/17/24 23:00 2 Laboratory Results Hemoglobin 10.2. Hematocrit 30.4. Electrolytes are stable PG Care Time/CCT Total # of Minutes Spent Total Time Spent with Patient: Total time spent is greater than 50% in coordination of care (as documented) at patient's floor/unit and/or counseling patient: Coding Level of Care Code 69394 Post Operative Follow-Up Diagnoses Status post right knee replacement Z96.651
[2024-02-18] MEDS ORDERED: NON-FORMULARY MEDICATION (Multivitamin Capsule) PO SCH (09:00)
[2024-02-18] MEDS: dexAMETHasone 10 MG in SYRINGE 0 ML IV SCH (09:08)
[2024-02-18] MEDS: amLODIPine BESYLATE 5 MG TAB PO SCH (09:08)
[2024-02-18] MEDS: CITALOPRAM 20 MG TAB PO SCH (09:09)
[2024-02-18] MEDS: CHOLECALCIFEROL 25 MCG (1000 UNITS) TAB PO SCH (09:09)
[2024-02-18] MEDS: CYANOCOBALAMIN (B-12) 500 MCG TABLET PO SCH (09:10)
[2024-02-18] MEDS: MULTIVITAMIN TAB PO SCH (09:10)
[2024-02-18] MEDS: ROSUVASTATIN CALCIUM 10 MG TAB PO SCH (09:10)
[2024-02-20] MEDS ORDERED: SPIRONOLACTONE 12.5 MG TAB PO SCH (09:00)
--- NOTE | 2024-02-20 13:33 | Discharge Summary ---
Date of Service February 20, 2024 Discharge Data Procedures Performed Operation Date: 02/17/24 10:40 Actual Procedures p Right Total Knee Arthroplasty(Right) - Iain Fernando MD Hospital Course (1) Status post right knee replacement: This is a 78 year old patient admitted on 02/17/24 and underwent total knee arthroplasty. She tolerated the procedure well and there were no complications. Transferred to the PACU post op and later to the orthopedic floor for further care. She was given ancef for antibiotic prophylaxis. She was also given GENESIS stockings, SCDs, and aspirin for DVT prophylaxis. Hemoglobin, hematocrit, and vital signs were monitored during her hospital stay and remained stable. Did not require any blood transfusions. There were no complications during her hospital stay. By post op day #1 the patient was tolerating a regular diet, pain was reasonably controlled with oral pain medicine, and she was participating in physical therapy. On post op day #1 the patient was discharged to a rehab facility. She was given printed discharge instructions including prescriptions for extra strength tylenol, aspirin, and oxycodone. Continue physical therapy, weight bearing as tolerated. Continue GENESIS stockings. Follow up approximately 2 weeks post op or sooner if there are problems or concerns. Coding Diagnoses Status post right knee replacement Z96.651
== END 2024-02-18 13:23 | DRG 470 ==
LOC: ASU 09:03 → 3N 12:49